=== PATIENT | female | born 1980 | race African-American/Black ===

== ENCOUNTER 2017-09-04 15:16 | Emergency (ER) | payer MEDICARE, MEDICAID ==
--- NOTE | 2017-09-04 15:54 | RAD ---
RADIOGRAPH OF CHEST 2 VIEW SERIES: Date: 09/04/17 COMPARISON: 09/02/17. CLINICAL HISTORY: Chest pain. FINDINGS: There is mild enlargement of the cardiac silhouette and prominence of pulmonary vasculature with mil d bilateral pleural fluid. No lobar consolidation or pneumothorax. Prior sternotomy again seen. IMPRESSION: Evidence of edema, likely cardiogenic, with mild bilateral pleural fluid. Recommend follow-up to res olution. POS: GUS
[2017-09-04] MEDS ORDERED: Metoprolol Tartrate 50 MG TAB ONE (17:08)
[2017-09-04] MEDS ORDERED: Metoprolol Tartrate 25 MG TAB ONE (17:08)
[2017-09-04] MEDS ORDERED: HYDROcodone/Acetaminophen 5/325 mg Tablet ONE (17:28)
[2017-09-04] MEDS ORDERED: Furosemide 40 MG TAB ONE (17:28)
== END 2017-09-04 17:47 | disposition home or self-care (01) ==
LOC: ERS 15:16
DX: R07.89 Other chest pain (principal); R45.1 Restlessness and agitation; K21.9 Gastro-esophageal reflux disease without esophagitis; I10 Essential (primary) hypertension; E10.9 Type 1 diabetes mellitus without complications; Z79.899 Other long term (current) drug therapy
CPT/HCPCS: 36416; 71020; 93005

== ENCOUNTER 2017-12-31 13:01 | Inpatient (IN) | payer MEDICARE, MEDICAID ==
[2017-12-31] MEDS ORDERED: Dextrose 50% Abboject 50 ML SYRINGE ONE (13:43)
[2017-12-31] MEDS ORDERED: cloNIDine 0.1 MG TAB ONE (14:37)
[2017-12-31 14:42] LABS: CKMB 4.9 ng/mL (0-6.6); Troponin I 0.178 ng/mL (< 0.028)
[2017-12-31] MEDS ORDERED: Ondansetron ODT 4 MG TAB SL PRN (16:17)
[2017-12-31] MEDS ORDERED: Acetaminophen 325 MG TAB PO PRN (16:17)
[2017-12-31] MEDS ORDERED: Ondansetron HCl/PF 4 MG/2 ML Vial IVP PRN ×2 (16:17→18:02)
[2017-12-31] MEDS ORDERED: hydrALAZINE 20 MG/ML VIAL SLOW IVP PRN (17:10)
[2017-12-31 17:43] LABS: Troponin I 0.162 ng/mL (< 0.028)
[2017-12-31] MEDS ORDERED: PROVENTIL INHALER 6.7 G (200 INHALATIONS) INH PRN (18:02)
[2017-12-31] MEDS ORDERED: Dextrose 5% in Water 1,000 ML IV PRN (18:02)
[2017-12-31] MEDS ORDERED: Dextrose 50% Abboject 50 ML SYRINGE SLOW IVP PRN (18:02)
[2017-12-31] MEDS ORDERED: Ondansetron ODT 4 MG TAB PO PRN (18:02)
--- NOTE | 2017-12-31 20:09 | CON ---
DATE OF CONSULTATION: 12/31/2017 HISTORY: Ms. Gimenez is a 37-year-old black female with known history of ESRD from diabetic nephropat hy, admitted for hypoglycemia. She was also found to have an elevated troponin, high. We are being consulted for her maintenance hemodialysis. She was due for dialysis today, but I felt that we can h old dialysis until tomorrow. REVIEW OF SYSTEMS: Not obtainable, since the patient is sleepy, but she is arousable. MEDICATIONS: Currently on Zofran 4 mg IV q.6, hydralazine 10 mg IV q.4 p.r.n. Home medications include Keppra 250 mg p.o. b.i.d., clonidine 0.1 mg p.o. b.i.d., metoprolol tartrate 12.5 mg p.o. b.i.d., Levemir FlexPen 20 units subcutaneous q.p.m. and 35 units q.a.m., furosemide 40 mg daily, aspirin 81 mg tablets, atorvastatin 40 mg at bedtime. PAST MEDICAL HISTORY: 1. Seizure disorder. 2. Status post sepsis. 3. Status post acute respiratory failure. 4. Type 2 diabetes mellitus. 5. ESRD from diabetic nephropathy. 6. Hyperlipidemia. 7. Labile hypertension. 8. COPD. PAST SURGICAL HISTORY: 1. Patient is status post cardiac catheterization. 2. Status post CABG. 3. Status post intubation and on ventilator support. 4. She is also status post bilateral tubal ligation. 4. Status post D&C. 5. Status post thoracentesis. SOCIAL HISTORY: Patient lives in [place], living partner, 3 children. Denies any smoking or alcoho l intake. No IV drug abuse. Status post blood transfusion, medically disabled. Education: GED. ALLERGIES: None. TRAUMA: None. IMMUNIZATIONS: Up to date. HOSPITALIZATIONS: Please see past medical history. FAMILY HISTORY: Positive family history of ESRD. PHYSICAL EXAMINATION: VITAL SIGNS: Blood pressure is 210/123, heart rate 78, respiratory rate 18, temperature 99. GENERAL: Awake, alert, comfortable, not in distress. SKIN: Adequate turgor. HEENT: Pinkish conjunctivae, anicteric sclerae. NECK: No neck mass, no carotid bruits, no JVD. CHEST: No deformities. Lungs, clear breath sounds. HEART: Normal sinus rhythm. No murmur, no gallops, or rubs. ABDOMEN: Globular, soft, nontender, no masses. EXTREMITIES: No edema, no deformities. NEUROLOGIC: Patient is sleepy, but arousable, following commands. LABORATORY DATA: On 12/31/2017, sodium 135, potassium 3.4, chloride 99, carbon dioxide 28, BUN is 37 , creatinine of 4.16, glucose 222. White count is 4.3, hemoglobin 10.2. LFTs normal. Troponin I 0.172. Chest x-ray of 12/31/2017, no evidence of overt CHF. ASSESSMENT AND PLAN: 1. End-stage renal disease, stable. We will continue current 3 times a week hemodialysis. She miss ed her dialysis today and will be scheduling it tomorrow for dialysis. 2. Labile hypertension. We will resume her BP medications. I will be starting this patient on clon idine at 0.1 mg tab b.i.d. We will start nifedipine 90 mg XL tab and losartan 50 mg q.a.m. Overall, I agree with current management. 3. Borderline elevated troponin I - we will rule out for myocardial infarction. 4. Hypoglycemia, currently on D10 water.
[2017-12-31] MEDS: levETIRAcetam 500 MG TAB PO SCH (20:16)
[2017-12-31] MEDS: Famotidine 20 MG TAB PO SCH (20:17)
[2017-12-31] MEDS: Metoprolol Tartrate 25 MG TAB PO SCH (20:17)
[2017-12-31] MEDS: Dorzolamide HCl 2% Ophth Soln 10 ml Bottle EA EYE SCH (20:18)
[2017-12-31] MEDS: cloNIDine 0.1 MG TAB PO SCH (20:18)
[2017-12-31 20:36] LABS: Troponin I 0.103 ng/mL (< 0.028)
[2017-12-31] MEDS ORDERED: cloNIDine 0.1 MG TAB PO SCH (21:00)
--- NOTE | 2017-12-31 21:41 | HP ---
DATE OF ADMISSION: 12/31/2017 PRIMARY CARE PHYSICIAN: Dr[facility] Liss[facility] CHIEF COMPLAINT: Altered mental status. HISTORY OF PRESENT ILLNESS: This is a 37-year-old -Malawian female with significant history o f end-stage renal disease on current hemodialysis and severe coronary artery disease, status post cor onary artery bypass grafting x4 vessels in 06/2017, presenting to the emergency department in [facility] for altered mentation and hypoglycemia. The patient apparently was on her way to dialysis, he r regular dialysis appointment when she apparently had loss of consciousness. Initial glucose was as sessed at 26 receiving 2 amps of D50 with glucose increasing to 150. Patient apparently took Levemir approximately 3:00 a.m., however, did not eat anything after the subcutaneous injection. Patient st ates she has her daughter drop and administer her insulin due to essential blindness. The history is obtained after review of electronic medical records and discussions with the ER staff, as patient is an unreliable historian. In the emergency room, patient underwent general evaluation with the admin istration of D50 IV push. Patient also received Catapres 0.2 mg x1 dose and referred to the observat ion unit for evaluation. PAST MEDICAL HISTORY: 1. Three-vessel coronary artery disease, status post coronary artery bypass grafting x4 vessels. 2. History of congestive heart failure with preserved ejection fraction of 55%. 3. Normocytic anemia secondary to chronic kidney disease. 4. Hypertension. 5. Diabetes mellitus, type 2 insulin-requiring with end-stage renal disease. 6. End-stage renal disease with hemodialysis. 7. 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 8. History of pneumonia. 9. Gastroesophageal reflux disease. PAST SURGICAL HISTORY: 1. Status post coronary artery bypass grafting x4 vessels. 2. Status post thoracentesis. 3. Status post AV fistula placement. CURRENT MEDICATIONS: 1. ProAir HFA 2 puffs inhaled q.4 hours p.r.n. 2. Enteric-coated aspirin 81 mg 1 tablet p.o. daily. 3. Lipitor 40 mg p.o. daily. 4. Clonidine 0.1 mg p.o. b.i.d. 5. Dorzolamide 2 drops in each eye b.i.d. 6. Ferrous sulfate 325 mg p.o. daily. 7. Levemir 35 units subcutaneously daily and 20 units subcutaneously at bedtime. 8. Keppra 250 mg p.o. b.i.d. 9. Lopressor 12.5 mg p.o. b.i.d. ALLERGIES: No known drug allergies. FAMILY HISTORY: Mother, status post colon resection for unknown reasons. Father at age of 68 f rom complications of diabetes mellitus. SOCIAL HISTORY: Patient resides in [place], [place]. . No current alcohol, tobacco, or illic it drug use. REVIEW OF SYSTEMS: The following complete review of systems was otherwise negative, except as stated per HPI: Constitutional: Weight loss or gain, ability to conduct usual activities. Skin: Rash, i tching. Eyes: Double vision, pain. ENT/Mouth: Nose bleeding, neck stiffness, pain, tenderness. C ardiovascular: Palpitations, dyspnea on exertion, orthopnea. Respiratory: Shortness of breath, whe ezing, cough, hemoptysis, fever, or night sweats. Gastrointestinal: Poor appetite, abdominal pain, heartburn, nausea, vomiting, constipation, or diarrhea. Genitourinary: Urgency, frequency, dysuria, nocturia. Musculoskeletal: Pain, swelling. Neurologic/Psychiatric: Anxiety, depression. Allergy /Immunologic: Skin rash, bleeding tendency. PHYSICAL EXAMINATION: VITAL SIGNS: On admission, blood pressure 210/123, pulse 78, respiratory rate 18, temperature 97.2 d egrees Fahrenheit, O2 saturation 99% on room air. GENERAL APPEARANCE: This is a 37-year-old -Malawian female, minimally responsive to direct st imulation and voice. Mumbles a few words to name. HEENT: Bilateral advanced cataracts. Nares patent. OP is clear. Oral mucosa dry appearing. NECK: Supple, no cervical adenopathy, no thyromegaly, no carotid bruits, no JVD appreciated. Cervic al spine with full active and passive range of motion. No meningeal signs appreciated. CHEST: Lungs with coarse crackles bilaterally in the bases. CARDIOVASCULAR: S1, S2 with 1-2/6 systolic ejection murmur in the right upper sternal border. ABDOMEN: Rounded, soft, nontender, nondistended. Bowel sounds are positive in all four quadrants. There is no hepatosplenomegaly, no abdominal bruits, no rebound or guarding appreciated. EXTREMITIES: Warm and dry with fair turgor. No clubbing, cyanosis, or asymmetric edema appreciated. Pulses palpable distally at the dorsalis pedis, posterior tibial, and popliteal arteries bilaterall y. Capillary refill less than 2 seconds. NEUROLOGIC: Cranial nerves II-XII are grossly intact. Right eye blindness noted. PERTINENT LABORATORY AND X-RAY FINDINGS: Troponin I ranged between 0.162-0.178. Sodium 135, potassi um 3.4, chloride 99, CO2 of 28, BUN 37, creatinine 4.16, estimated GFR 45, glucose 222, hemoglobin A1 c 9.6 on 07/15/2017. Calcium 8.2, AST 57, ALT of 261 with alkaline phosphatase 170. BNP 589 on 09/17. CBC showed a white blood cell count of 4.3, hemoglobin 10, hematocrit 32, platelet count 276 with normal differential. EKG dated 12/31/2017 by my interpretation shows sinus mechanism with hear t rates in the 70s. Low voltage tracing globally. Attenuated R waves noted in precordial leads. No rmal axis. T-wave inversion in leads V5 and V6. Acute encephalopathy, likely secondarily to acute h ypoglycemia. We will continue supportive measures. Continue serial Accu-Cheks monitoring. Hold ins ulin regimen. Portable chest x-ray dated 12/31/2017 showed no acute cardiopulmonary process. ASSESSMENT AND PLAN: 1. Acute encephalopathy. Patient will be observed on the telemetry unit. Suspect secondarily to hy poglycemia. We will continue supportive measures. Serial Accu-Cheks. Hold insulin. Overall improv ed with glucose supplementation. 2. End-stage renal disease with hemodialysis. We will resume hemodialysis after consulting Nephrolo gy Service. 3. Diabetes mellitus type 2, advanced. We will hold long-acting Levemir. Insulin sliding scale for reflexive coverage. Check A1c level in the a.m. ADA diet. 4. Coronary artery disease, status post coronary artery bypass grafting. Continue home medication r egimen including aspirin 81 mg p.o. daily. Continue Lipitor 40 mg p.o. daily. 5. Elevated troponin I. Suspect secondarily to end-stage renal disease with hemodialysis. No curre nt evidence to suggest acute coronary syndrome. 6. Prophylaxis. Sequential compression devices while in bed. Pepcid 20 mg p.o. b.i.d. 7. Code status is FULL. Surrogate medical decision maker is patient's spouse.
[2017-12-31] MEDS: Acetaminophen 500 MG TAB PO PRN (23:43)
[2017-12-31] MEDS: cloNIDine 0.1 MG TAB PO PRN (23:43)
[2018-01-01] MEDS ORDERED: Furosemide 40 MG/4 ML VIAL SLOW IVP SCH (03:30)
[2018-01-01] MEDS ORDERED: Losartan 25 MG TAB PO SCH (03:30)
[2018-01-01] MEDS ORDERED: NIFEdipine XL 90 MG TAB PO SCH (03:30)
[2018-01-01 05:34] LABS: Hemoglobin 9.4 g/dL (12.0-16.0); Mean Corpuscular Hemoglobin 29.4 pg (27.0-31.0); Mean Platelet Volume 8.2 fL (7.4-10.4); Platelet Count 317 thou/uL (130-400); RBC Distribution Width 16.9 % (11.5-14.5); Red Blood Cell (RBC) Count 3.18 mill/uL (4.20-5.40); White Blood Cell (WBC) Count 6.6 thou/uL (4.8-10.8)
[2018-01-01 05:35] LABS: Band 9 % (5-11); Eosinophils 1 % (0-10); Lymphocytes 20 % (21-51); MDiff Complete? YES; Monocytes 8 % (0-10); Neutrophil 62 % (42-75)
[2018-01-01 06:14] LABS: Anion Gap 16 mmol/L (10-20); BUN (Urea Nitrogen) 46 mg/dL (7.0-18.7); Calc. Creatinine Clearance 16 mL/min (70-130); Calcium 8.3 mg/dL (7.8-10.44); Carbon Dioxide 25 mmol/L (22-29); Chloride 100 mmol/L (98-107); Estimated GFR-MDRD 13; Glucose 101 mg/dL (70-105); Potassium 3.9 mmol/L (3.5-5.1); Sodium 137 mmol/L (136-145)
[2018-01-01] MEDS: Famotidine 20 MG TAB PO SCH ×2 (07:48→21:38)
[2018-01-01] MEDS: Aspirin 81 mg Enteric Coated Tablet PO SCH (07:49)
[2018-01-01] MEDS: levETIRAcetam 500 MG TAB PO SCH ×2 (07:49→21:37)
[2018-01-01] MEDS: cloNIDine 0.1 MG TAB PO SCH (07:49)
[2018-01-01] MEDS: Metoprolol Tartrate 25 MG TAB PO SCH ×2 (07:50→20:41)
[2018-01-01] MEDS: Ferrous Sulfate 325 MG TAB PO SCH (07:50)
[2018-01-01] MEDS: Dorzolamide HCl 2% Ophth Soln 10 ml Bottle EA EYE SCH ×2 (07:51→21:38)
[2018-01-01] MEDS ORDERED: Heparin 1,000 UNITS/ML VIAL ONE (11:11)
--- NOTE | 2018-01-01 11:56 | DIS ---
DATE OF ADMISSION: 12/31/2017 DATE OF DISCHARGE: 01/01/2018 DISCHARGE DIAGNOSES: 1. Acute metabolic encephalopathy secondary to hypoglycemia, resolved. 2. End-stage renal disease with hemodialysis. 3. Diabetes mellitus type 2, insulin requiring. 4. Coronary artery disease status post coronary artery bypass grafting, chronic and stable. 5. Elevated troponin I secondary to end-stage renal disease. 6. Hypertension, labile. 7. Chronic normocytic anemia secondary to chronic kidney disease. CONSULTATION: Dr. Ray with Nephrology Service. PERTINENT LABORATORY DATA AND X-RAY FINDINGS: Creatinine ranged between 4.16-4.76. Troponin I range d between 0.103-0.178. Glucose ranged between 58-162. CBC showed hemoglobin of 9.4. Portable chest x-ray dated 12/31/2017 showed no acute cardiopulmonary process. HOSPITAL COURSE: Patient was observed on the telemetry unit after initially presenting with altered mentation in the context of hypoglycemic episode. The patient was given 2 amps of D50 and placed on a D10 infusion with overall correction of glucose trend. Patient on chronic Levemir with current rec ommendations to titrate Levemir dosing with a titer surveillance of glucose trend. The patient was a lso evaluated for labile hypertension with the addition of Cozaar and nifedipine to [facility]. The patient was noted with hypotension after initiation of these two agents with recommendati ons to discontinue nifedipine and continue losartan for ongoing outpatient use. The patient was not volume overloaded during the hospital course and did not need acute or urgent hemodialysis. Current recommendations are for resuming regular hemodialysis sessions on discharge beginning [id number]. Ernst mckoy, patient remained clinically stable during the hospital course, tolerating regular oral intake w ith telemetry monitoring showing sinus mechanism without evidence of acute arrhythmia or dysrhythmia. The patient is stable and ready for discharge on 01/01/2018. DISCHARGE MEDICATIONS: 1. ProAir HFA 2 puffs inhaled q.4 hours p.r.n. 2. Enteric coated aspirin 81 mg 1 tab p.o. daily. 3. Lipitor 40 mg 1 tab p.o. daily. 4. Clonidine 0.1 mg p.o. b.i.d. 5. Dorzolamide 2% ophthalmic solution 2 drops each eye b.i.d. 6. Ferrous sulfate 325 mg p.o. daily. 7. Levemir 25 units subcutaneously daily and 10 units subcutaneously at bedtime. 8. Keppra 250 mg p.o. b.i.d. 9. Cozaar 25 mg p.o. daily. 10. Metoprolol 12.5 mg p.o. b.i.d. FOLLOWUP: The patient may follow up with her primary care provider, Dr. Lissett Tang within 7 days of discharge. The patient will follow up with Dr. Ray with Nephrology Service with hemodialysis Thu, Thursday, and Thursday. CONDITION ON DISCHARGE: Fair. ACTIVITY: Ad di. DIET: ADA and renal. CODE STATUS: FULL. DISPOSITION: Home, 01/01/2018.
[2018-01-01] MEDS: Acetaminophen 500 MG TAB PO PRN (13:14)
[2018-01-01] MEDS ORDERED: Dextrose 50% Abboject 50 ML SYRINGE ONE (17:00)
[2018-01-01] MEDS ORDERED: Calcium Chloride 1 GM/10 ML Abboject SYRINGE ONE (17:00)
[2018-01-01] MEDS ORDERED: EPINEPHrine 1 MG/10 ML Abboject SYRINGE ONE (17:00)
--- NOTE | 2018-01-01 17:15 | PDOC.PN ---
- Subjective Encounter Start Date: 01/01/18 Encounter Start Time: 17:00 Subjective: avery miller called with pt hypotensive and lethargic. Received two new -: BP meds this am including Nifedipine and Losartan. - Objective Resuscitation Status: Resuscitation Status FULL:Full Resuscitation MAR Reviewed: Yes Vital Signs & Weight: Vital Signs (12 hours) Temp Pulse Resp BP BP Pulse Ox 01/01/18 16:12 97.6 F 69 16 87/52 L 92 L 01/01/18 14:38 108/50 L 01/01/18 12:37 98.2 F 73 18 99/62 96 01/01/18 11:02 98.2 F 75 16 94/55 L 98 01/01/18 08:00 98.9 F 88 16 01/01/18 07:49 185/95 H 01/01/18 07:17 98.9 F 88 16 185/95 H 92 L 01/01/18 05:45 99.5 F 88 18 172/94 H 93 L Weight Weight 137 lb 8 oz I&O: 12/31/17 01/01/18 01/02/18 06:59 06:59 06:59 Intake Total 324 Output Total 300 Balance 24 Result Diagrams: 01/01/18 04:15 01/01/18 04:15 Additional Labs: Accuchecks 01/01/18 01/01/18 01/01/18 16:36 14:26 10:49 POC Glucose 241 H 251 H 156 H 01/01/18 12/31/17 12/31/17 03:02 20:11 17:55 POC Glucose 111 H 117 H 94 EKG Reviewed by me: Yes (Tele - SR ) Phys Exam - Physical Examination lethargic, minimally arousable eyelid edema noted HEENT: PERRLA, oral pharynx no lesions Neck: no JVD, supple Respiratory: no wheezing, clear to auscultation bilateral Cardiovascular: RRR Gastrointestinal: soft, non-tender, no distention, positive bowel sounds Musculoskeletal: no edema, pulses present answers questions briefly Neurological: moves all 4 limbs Skin: normal turgor Dx/Plan (1) Hypotension, iatrogenic Code(s): I95.89 - OTHER HYPOTENSION Status: Acute Comment: Secondary to Nifedipine and Losartan in combination, IVF's x 2L, trendelenburg started (2) Encephalopathy acute Code(s): G93.40 - ENCEPHALOPATHY, UNSPECIFIED Status: Acute Comment: Multifactorial due to hypotension and hypoxia (3) ESRD (end stage renal disease) on dialysis Code(s): N18.6 - END STAGE RENAL DISEASE; Z99.2 - DEPENDENCE ON RENAL DIALYSIS Status: Chronic Comment: HD held per Renal service (4) Acute respiratory failure with hypoxia Code(s): J96.01 - ACUTE RESPIRATORY FAILURE WITH HYPOXIA Status: Resolved Comment: Increased O2 via NC but pt more lethargic, BVM started with RT - Plan respiratory therapy Code Green/Code Blue initiated, ACLS protocol started, no chest -: compressions as pulse palpated, 1 amp CaCL given and 1 amp Epi -: HR increased to 120's and BP increased, pt more alert and yelling -: after Epi given, pt pulling off leads, mask and fighting staff. Pt transfer -: to [facility] for further monitoring and IVF's * Lab: CMP, CBC * PCXR today * Pt initially scheduled for d/c but held due to hypotension and Code Blue. ? Hemodialysis in am. * Levophed gtt started due to persistent hypotension * Consult Critical Care service * Total critical care time: 30min
[2018-01-01 17:36] LABS: Actual Bicarbonate (HCO3a) 20.3 mEq/L (22-26); Base Excess (BEa) -5.5 mEq/L (0 (+/-) 2.5); CO2 Tension 41.2 mmHg (35.0-45.0); Hematocrit-ABG 31.4 % (36.0-47.0); Hemoglobin (Hb) 8.9 g/dL (12.0-16.0); O2 Tension (PaO2) 60.4 mmHg (80.0-100.0); pH, Arterial 7.31 (7.35-7.45)
[2018-01-01 17:37] LABS: Calcium, Ionized 1.3 mmol/L (1.12-1.30); Puncture Site LB
[2018-01-01] MEDS ORDERED: Norepinephrine 8 MG/0.9% NS 250 ML ONE (17:54)
[2018-01-01] MEDS ORDERED: Norepinephrine 8 MG in Sodium Chloride 0.9% 250 ML 250 ML IVPB PRN (19:16)
[2018-01-01] MEDS: Epoetin (ESRD) 20,000 UNITS/ML SC SCH (22:16)
[2018-01-01] MEDS: HumaLOG 300 UNITS/3 ML VIAL SC PRN ×2 (22:17→22:19)
--- NOTE | 2018-01-01 23:25 | CON ---
DATE OF CONSULTATION: 01/01/2018 Arely Gimenez is a 37-year-old female. She is a dialysis patient. Apparently she was admitted with hypoglycemia. Blood pressure medicines apparently were adjusted and she developed hypotension. A code was called. She received epinephrine, was moved to the B unit and then moved to the ICU. PAST MEDICAL HISTORY: Remarkable for, 1. Coronary artery bypass grafting. 2. History of cardiomyopathy. 3. History of chronic kidney disease. 4. History of hypertension. 5. History of diabetes, reportedly type 2. 6. History of glaucoma with legal blindness. 7. History of pneumonia. 8. History of reflux disease. 9. History of thoracentesis. 10. History of multiple vascular access procedures in the past. FAMILY HISTORY: Negative for lung disease at an early age. REVIEW OF SYSTEMS: Not accurately obtainable. She was very combative when I initially saw her. She said that she will leave against medical advice. It has been explained to her that she cannot as she has been confused and disoriented. She is a nonsmoker, not daily drinker. There is no history of drug allergies. PHYSICAL EXAMINATION: VITAL SIGNS: Blood pressures are in the 80s-100 range when I evaluated her after she was transferred to the ICU. She is afebrile, heart rate in the 60s, respiratory rate is 16. HEENT: Sclerae is anicteric. Extraocular movements are full. NECK: Supple. LUNGS: Clear. HEART: Regular rhythm. ABDOMEN: Soft. EXTREMITIES: Without asymmetry. LABORATORY DATA: White count 6.6, hemoglobin 9.4, platelets 317. Sodium 137, potassium 3.9, chloride 100, bicarbonate 25, BUN 46, creatinine of 4.76, pH 7.31 , CO2 of 41, pO2 of 60. IMPRESSION: Hypotension question medication induced. She does not have any clinical evidence of pulmonary edema, so she should respond to some volume I would think maybe even some calcium since calcium brandie that was given earlier. Blood sugar will be monitored. She will remain in the Critical Care Unit. Critical care time 30 min. ROBERT
--- NOTE | 2018-01-02 00:05 | PRG ---
DATE OF SERVICE: 01/01/2018 SUBJECTIVE: Ms. Gimenez was seen earlier this afternoon at 4 p.m. At that time, she was asymptomatic and mentating well. Later on a code angela was called. She became less responsive and a code was do ne. However, she never lost her pulse. She was transferred to ICU for further management and observ ation. She is very agitated. She was started on a Levophed drip due to the blood pressure of 87/52. She is currently eating chips, which she was advised not to eat. No other complaints. She is want ing dialysis. However, I reviewed her clinical status and I do not think she is in overt volume over load necessitating emergent dialysis. Please note her dialysis was held today due to the low blood p ressure. OBJECTIVE: VITAL SIGNS: Blood pressure is currently 87/52, heart rate 69, respiratory rate 16, temperature 97.6 , pulse oximetry is 95% on 4 liters. GENERAL: Awake, alert, comfortable, not in distress. SKIN: Adequate turgor. HEENT: Pinkish conjunctivae. Anicteric sclerae. NECK: No neck mass or carotid bruits, no JVD. CHEST: No deformities. LUNGS: Clear breath sounds. No wheezing, no crackles. HEART: Normal sinus rhythm. No murmur, no gallops, no rubs. ABDOMEN: Globular, soft, nontender. EXTREMITIES: No edema or deformities. MEDICATIONS: Of 01/01/2018 was reviewed. LABORATORY DATA: Of 01/01/2018 at 4:15 p.m.: Sodium 137, potassium 3.9, chloride 100, carbon dioxid e 25, BUN 46, creatinine of 4.76, calcium 8.3. White count 6.6, hemoglobin 9.4. ASSESSMENT AND PLAN: 1. End-stage renal disease - stable. I do not see any indication for emergent hemodialysis since th e patient is oxygenating well. The concern I have is that her blood pressure has been running low an d this may affect how I dialyze this patient if dialysis gets started tonight. The plan is to dialyz e her first thing in the morning. 2. Status post code green: The patient had an apneic episode, but she is fully recovered. She is no t intubated, placed on ventilator support. She is actually very agitated. 3. Labile hypertension. Initially was admitted due to very high blood pressure, but later on this m orning she dropped her blood pressure. She has been on the hypotensive side the whole day. Continue to hold current blood pressure meds.
[2018-01-02] MEDS ORDERED: Furosemide 40 MG/4 ML VIAL SLOW IVP SCH (01:30)
[2018-01-02 06:10] LABS: ALT (SGPT) 171 U/L (8-55); AST (SGOT) 36 U/L (5-34); Albumin 2.7 g/dL (3.5-5.0); Alkaline Phosphatase 171 U/L (40-150); Anion Gap 14 mmol/L (10-20); BUN (Urea Nitrogen) 58 mg/dL (7.0-18.7); Bilirubin, Total 0.4 mg/dL (0.2-1.2); Calc. Creatinine Clearance 14 mL/min (70-130); Calcium 8.3 mg/dL (7.8-10.44); Carbon Dioxide 25 mmol/L (22-29); Chloride 99 mmol/L (98-107); Estimated GFR-MDRD 11; Globulin 3.2 g/dL (2.4-3.5); Glucose 449 mg/dL (70-105); Potassium 4.4 mmol/L (3.5-5.1); Protein, Total 5.9 g/dL (6.0-8.3); Sodium 134 mmol/L (136-145)
[2018-01-02] MEDS: HumaLOG 300 UNITS/3 ML VIAL SC PRN ×2 (06:31→17:38)
[2018-01-02 06:50] LABS: Band 11 % (5-11); Hemoglobin 8.4 g/dL (12.0-16.0); Lymphocytes 11 % (21-51); MDiff Complete? YES; Mean Corpuscular HGB CONC 32.3 g/dL (32.0-36.0); Mean Corpuscular Hemoglobin 29.7 pg (27.0-31.0); Mean Corpuscular Volume 91.9 fl (81.0-99.0); Mean Platelet Volume 8.7 fL (7.4-10.4); Monocytes 4 % (0-10); Neutrophil 74 % (42-75); Platelet Count 252 thou/uL (130-400); RBC Distribution Width 16.3 % (11.5-14.5); Red Blood Cell (RBC) Count 2.82 mill/uL (4.20-5.40); White Blood Cell (WBC) Count 7.6 thou/uL (4.8-10.8)
[2018-01-02] MEDS ORDERED: Losartan 25 MG TAB PO SCH (09:00)
[2018-01-02] MEDS ORDERED: NIFEdipine XL 90 MG TAB PO SCH (09:00)
--- NOTE | 2018-01-02 09:15 | RAD ---
CHEST 1 VIEW: HISTORY: Dyspnea. Hypotension. COMPARISON: 12/31/17. FINDINGS: Cardiac silhouette is magnified and upper limits of normal in size. Pulmonary vasculature is slightl y engorged with patchy bilateral perihilar and bibasilar infiltrates. Mediastinum is midline. Posto perative changes of the mediastinum are apparent. Right internal jugular dialysis-type catheter is i n place. No evidence of pneumothorax. monitor worker leads overlie the chest. IMPRESSION: Pulmonary vascular congestion. Other findings are stable. POS: KATRINA
[2018-01-02] MEDS: Dorzolamide HCl 2% Ophth Soln 10 ml Bottle EA EYE SCH ×2 (10:00→21:11)
--- NOTE | 2018-01-02 10:08 | PRG ---
DATE OF SERVICE: 01/02/2018 SUBJECTIVE: Ms. Gimenez is a 37-year-old black female with ESRD followed by the Renal Service [facility]. Events of the last 24 hours noted. Patient has been transferred to ICU for [facility] intensive monitoring due to her episodes of hypertension and decreased mentation. Chest x-ray wa s reviewed today, which showed increased lung markings. She has also been placed on pressor support for the low blood pressure. She is currently undergoing hemodialysis, at the bedside supervising her dialysis. OBJECTIVE: VITAL SIGNS: Blood pressure is 135/81, heart rate 93, respiratory rate 16, pulse ox 93%. GENERAL: Awake, sitting comfortable, not in overt distress. SKIN: Adequate turgor. HEENT: Slightly pale conjunctivae, anicteric sclerae. Slightly pale conjunctivae, anicteric sclerae . Puffy eyelids, no neck mass, no JVD. LUNGS: Decreased breath sounds. HEART: Normal sinus rhythm. No murmur, no gallops or rubs. ABDOMEN: Globular, soft, nontender. EXTREMITIES: Trace edema. MEDICATIONS: Of 01/02/2018, reviewed. LABORATORY DATA: Of 01/02/2018, white count 7.6, hemoglobin 8.4, hematocrit 25.9. Sodium 134, potas sium 4.4, chloride 99, carbon dioxide 25, BUN 58, creatinine 5.47, AST 36, ALT 171, alkaline phosphat ase 171, albumin is 2.7. Chest x-ray, increased lung markings. ASSESSMENT AND PLAN: 1. Labile hypertension - previously on pressor support. Continue current management. Holding of al l BP meds due to the recent hypotensive episode. 2. Congestive heart failure - increased lung markings this morning. This is based on today's chest x-ray. Please note the patient received several liters of fluid yesterday. Undergoing dialysis for fluid removal. 3. End-stage renal disease - patient undergoing hemodialysis today, attempting about 2 liters of flu id removal as tolerated. If needed, I will redialyze this patient again tomorrow for fluid removal. We are urgently removing fluid due to the episodes of hypotensive previously with this patient. 4. Anemia, on weekly Epogen. Overall, prognosis remains guarded.
--- NOTE | 2018-01-02 10:24 | PDOC.EVN ---
Event Note - Event Note Event Note: Chart reviewed and patient seen. Discussed with Case management. Pt was transfered to CCU yesterday for hypotension needing vasopressor drip and higher level of care after Code Green. Pt's status to be acute Inpatient from that time.
[2018-01-02] MEDS: ALPRAZolam 0.25 MG TAB PO PRN ×2 (10:43→17:53)
[2018-01-02] MEDS: Aspirin 81 mg Enteric Coated Tablet PO SCH (10:45)
[2018-01-02] MEDS: Ferrous Sulfate 325 MG TAB PO SCH (10:45)
[2018-01-02] MEDS: Famotidine 20 MG TAB PO SCH ×2 (10:45→21:06)
[2018-01-02] MEDS: Metoprolol Tartrate 25 MG TAB PO SCH ×2 (10:45→21:06)
[2018-01-02] MEDS: levETIRAcetam 500 MG TAB PO SCH ×2 (10:46→21:05)
[2018-01-02] MEDS ORDERED: Heparin 1,000 UNITS/ML VIAL ONE (11:11)
--- NOTE | 2018-01-02 12:41 | PDOC.PN ---
- Subjective Encounter Start Date: 01/02/18 Encounter Start Time: 10:20 Pt seen for followup re; hypotension. Moaning. Denies chest pain or shortness of breath. No fevers or chills. - Objective MAR Reviewed: Yes Vital Signs & Weight: Vital Signs (12 hours) Temp Pulse Resp Pulse Ox 01/02/18 08:00 97.6 F 93 22 H 95 01/02/18 07:00 98.8 F 01/02/18 04:00 97.6 F 92 L Weight Admit Weight 2.31 oz Most Recent Monitor Data Heart Rate from ECG 93 NIBP 135/81 NIBP BP-Mean 106 Respiration from ECG 16 SpO2 93 I&O: 01/01/18 01/02/18 01/03/18 06:59 06:59 06:59 Intake Total 766.2 120 Output Total 75 0 Balance 691.2 120 Result Diagrams: 01/02/18 05:30 01/02/18 05:30 Additional Labs: Accuchecks 01/02/18 01/02/18 01/01/18 10:54 06:31 20:53 POC Glucose 129 H 398 H 322 H EKG Reviewed by me: Yes (Tele: NSR) Phys Exam - Physical Examination Constitutional: NAD HEENT: moist MMs Neck: supple Respiratory: clear to auscultation bilateral Cardiovascular: RRR Neurological: moves all 4 limbs Psychiatric: normal affect Skin: no rash Dx/Plan (1) Hypotension Status: Acute (2) Encephalopathy acute Code(s): G93.40 - ENCEPHALOPATHY, UNSPECIFIED Status: Acute (3) ESRD (end stage renal disease) on dialysis Code(s): N18.6 - END STAGE RENAL DISEASE; Z99.2 - DEPENDENCE ON RENAL DIALYSIS Status: Chronic (4) DM type 1 (diabetes mellitus, type 1) Status: Chronic Qualifiers: Diabetes mellitus complication status: with ophthalmic complications Diabetes mellitus complication detail: with diabetic retinopathy Diabetic retinopathy severity: with unspecified retinopathy severity Diabetes mellitus macular edema: macular edema presence unspecified Laterality: bilateral Qualified Code(s): E10.319 - Type 1 diabetes mellitus with unspecified diabetic retinopathy without macular edema (5) Glaucoma Code(s): H40.9 - UNSPECIFIED GLAUCOMA Status: Chronic (6) Hypertension Code(s): I10 - ESSENTIAL (PRIMARY) HYPERTENSION Status: Chronic Qualifiers: Hypertension type: essential hypertension Qualified Code(s): I10 - Essential (primary) hypertension (7) CAD (coronary artery disease) Code(s): I25.10 - ATHSCL HEART DISEASE OF [place] CORONARY ARTERY W/O ANG PCTRS Status: Chronic - Plan * . Blood pressure improved today. Pt to have dialysis, monitor BP. Dialysis per nephrology service. Continue feosol, epoetin. Review of Systems - Review of Systems Respiratory: negative: Cough, Dry, Shortness of Breath, Hemoptysis, SOB with Excertion, Pleuritic Pain, Sputum, Wheezing Cardiovascular: negative: chest pain, palpitations, orthopnea, paroxysmal nocturnal dyspnea, edema, light headedness - Medications/Allergies Allergies/Adverse Reactions: Allergies Allergy/AdvReac Type Severity Reaction Status Date / Time No Known Drug Allergies Allergy Verified 07/03/17 21:53 Medications: Current Medications Acetaminophen (Tylenol) 1,000 mg PO Q6H PRN PRN Reason: Headache/Fever or Mild Pain Last Admin: 01/01/18 13:14 Dose: 1,000 mg Albuterol Sulfate (Proventil Hfa) 2 puff INH Q4HR PRN PRN Reason: SOB &/or Wheezing Alprazolam (Xanax) 0.25 mg PO BIDPRN PRN PRN Reason: Anxiety Last Admin: 01/02/18 10:43 Dose: 0.25 mg Aspirin (Ecotrin) 81 mg PO DAILY [facility] Last Admin: 01/02/18 10:45 Dose: 81 mg Clonidine (Catapres) 0.1 mg PO Q4H PRN PRN Reason: Systolic BP > 180 Last Admin: 12/31/17 23:43 Dose: 0.1 mg Dextrose/Water (Dextrose 50%) 25 gm SLOW IVP PRN PRN PRN Reason: Hypoglycemia Dorzolamide HCl (Trusopt 2% Ophth Soln) 2 drop EA EYE BID [facility] Last Admin: 01/01/18 21:38 Dose: 2 drop Epoetin Enrique (Procrit) 7,500 units SC Q7D [facility] Last Admin: 01/01/18 22:16 Dose: 7,500 units Famotidine (Pepcid) 20 mg PO BID [facility] Last Admin: 01/02/18 10:45 Dose: 20 mg Ferrous Sulfate (Feosol) 325 mg PO DAILY [facility] Last Admin: 01/02/18 10:45 Dose: 325 mg Glucagon (Glucagon) 1 mg IM PRN PRN PRN Reason: Hypoglycemia Heparin Sodium (Porcine) (Heparin Lock Flush 100 Units/Ml) 500 units IVF PRN PRN PRN Reason: Heparin Flush Last Admin: 01/02/18 06:32 Dose: 200 unit Dextrose/Water (D5w) 1,000 mls @ 0 mls/hr IV .Q0M PRN; As Directed PRN Reason: Hypoglycemia Norepinephrine Bitartrate 8 mg (/ Sodium Chloride) 258 mls @ 0 mls/hr IVPB INF PRN; Protocol; Titrate PRN Reason: TO KEEP SBP > 100 Insulin Human Lispro (Humalog) 0 units SC .MILD SLIDING SCALE PRN PRN Reason: Mild Correctional Scale Last Admin: 01/02/18 06:31 Dose: 6 unit Insulin Human Lispro (Humalog) 0 units SC .BEDTIME SLIDING SC PRN PRN Reason: Bedtime Correctional Scale Last Admin: 01/01/18 22:19 Dose: 4 unit Levetiracetam (Keppra) 250 mg PO BID [facility] Last Admin: 01/02/18 10:46 Dose: 250 mg Metoprolol Tartrate (Lopressor) 12.5 mg PO BID [facility] Last Admin: 01/02/18 10:45 Dose: 12.5 mg Ondansetron HCl (Zofran Odt) 4 mg PO Q6H PRN PRN Reason: Nausea/Vomiting Ondansetron HCl (Zofran) 4 mg IVP Q6H PRN PRN Reason: Nausea/Vomiting Sodium Chloride (Flush - Normal Saline) 10 ml IVF PRN PRN PRN Reason: Saline Flush
--- NOTE | 2018-01-02 18:10 | PRG ---
DATE OF SERVICE: 01/02/2018 Ms. Arely Gimenez is much more cooperative today. She is being dialyzed this morning. OBJECTIVE: VITAL SIGNS: She is afebrile, heart rate is in the 90s, blood pressure 152/86. LUNGS: Clear. HEART: Regular rhythm. ABDOMEN: Soft. LABORATORY DATA: White count 7.6, hemoglobin 8.4, platelets 252. Electrolytes are normal except for BUN and creatinine are elevated as expected in a dialysis patient. Blood sugars have been better th is afternoon and then this morning. IMPRESSION: 1. Hypoglycemia. 2. Hypotension, most likely secondary to medication. 3. Encephalopathy yesterday with her hypotension and hypoglycemia, improved. 4. End-stage renal disease. She can be transferred to medical floor. She had no cardiac rhythm dis turbances and would require telemetry monitoring.
[2018-01-02] MEDS ORDERED: Benzonatate 100 MG CAP PO PRN (22:49)
[2018-01-02] MEDS: cloNIDine 0.1 MG TAB PO PRN (22:56)
[2018-01-02] MEDS ORDERED: Metoprolol Tartrate 25 MG TAB PO SCH (23:00)
[2018-01-03] MEDS ORDERED: cloNIDine 0.1 MG TAB PO SCH (02:15)
[2018-01-03] MEDS: cloNIDine 0.1 MG TAB PO PRN (06:08)
[2018-01-03] MEDS: Acetaminophen 500 MG TAB PO PRN (06:32)
[2018-01-03] MEDS: ALPRAZolam 0.25 MG TAB PO PRN (06:32)
[2018-01-03] MEDS: Dorzolamide HCl 2% Ophth Soln 10 ml Bottle EA EYE SCH ×2 (09:16→21:00)
[2018-01-03] MEDS: Ferrous Sulfate 325 MG TAB PO SCH ×2 (09:18→13:32)
[2018-01-03] MEDS: levETIRAcetam 500 MG TAB PO SCH ×3 (09:18→21:00)
[2018-01-03] MEDS: Metoprolol Tartrate 25 MG TAB PO SCH ×3 (09:18→21:00)
[2018-01-03] MEDS: Aspirin 81 mg Enteric Coated Tablet PO SCH ×2 (09:19→13:34)
[2018-01-03] MEDS: Famotidine 20 MG TAB PO SCH ×3 (09:20→21:55)
[2018-01-03] MEDS ORDERED: Heparin 10,000 UNITS/ 10 ML VIAL ONE (10:00)
--- NOTE | 2018-01-03 10:09 | PRG ---
DATE OF SERVICE: 01/03/2018 SERVICE: Renal Medicine. SUBJECTIVE: The patient is currently at the dialysis unit. We are dialyzing this patient. I am at the bedside. She was noted to be hypoxemic earlier. For that reason, a 3-hour dialysis is being jose nned. My plan is to remove 2-3 liters as tolerated by the patient. Her mentation is also been fluct uating. She has been very agitated yesterday and for that reason, Xanax was given. No other complai nts today. PHYSICAL EXAMINATION: VITAL SIGNS: Blood pressure is 142/99, heart rate 72, respiratory rate 18, pulse ox is 92% on face m ask, temperature 97.9. GENERAL: Noted to be awake, alert, comfortable, not in distress. SKIN: Adequate turgor. HEENT: She has slightly pale conjunctivae, anicteric sclerae. NECK: No neck mass, no carotid bruits, no JVD. CHEST: No deformities. LUNGS: Decreased breath sounds. HEART: Normal sinus rhythm. No murmur, no gallops, no rubs. ABDOMEN: Globular, soft, nontender, no masses. EXTREMITIES: No edema, no deformities. MEDICATIONS: Of 01/03/2018 was reviewed. LABORATORY DATA: Of 01/03/2018, glucose was 109. On 01/02/2018, hemoglobin 8.4. BUN 58, creatinine 5.47, potassium 4.4. ASSESSMENT AND PLAN: 1. Anemia - patient has been initiated on Epogen 7500 units subcutaneously every week. 2. End-stage renal disease, continuing 3 times a week hemodialysis as tolerated. 3. Shortness of breath/hypoxemia - hemodialysis and we will attempt 2-3 liters of fluid removal as t olerated by the patient. If needed, we can again reschedule her for another dialysis session. Chest x-ray is currently pending. 4. Fluctuating mentation - patient is on p.r.n. Xanax. 5. Hypertension - previously noted to be on the hypotensive side. Currently, blood pressure is much improved. Please note, Xanax has been discontinued.
--- NOTE | 2018-01-03 10:45 | RAD ---
CHEST 1 VIEW: HISTORY: Dyspnea. Followup. COMPARISON: 01/02/18. FINDINGS: Cardiac silhouette is magnified and enlarged. Pulmonary vasculature is more engorged than on the eileen or exam with increasing density of bilateral perihilar and bibasilar infiltrates. Mediastinum is mid line with postoperative changes and dialysis catheter. No evidence of pneumothorax. IMPRESSION: Worsening pulmonary edema. POS: [facility]
[2018-01-03] MEDS ORDERED: ISOVUE-370 76%-LOCM 1 ML ONE (13:07)
--- NOTE | 2018-01-03 13:32 | PDOC.PN ---
- Subjective Encounter Start Date: 01/03/18 Encounter Start Time: 10:00 Pt seen for followup re: acute encephalopathy. Sleepy but arousable, not speaking much. SaO2 dropping while asleep. Unable to complete ROS. - Objective MAR Reviewed: Yes Vital Signs & Weight: Vital Signs (12 hours) Temp Pulse Resp BP Pulse Ox 01/03/18 08:00 97.9 F 72 18 142/99 H 79 L 01/03/18 05:00 97.8 F 78 20 191/116 H 93 L 01/03/18 03:28 92 L Weight Admit Weight 2.31 oz Most Recent Monitor Data Heart Rate from ECG 90 NIBP 165/97 NIBP BP-Mean 132 Respiration from ECG 18 SpO2 94 I&O: 01/02/18 01/03/18 01/04/18 06:59 06:59 06:59 Intake Total 766.2 180 Output Total 75 0 Balance 691.2 180 Result Diagrams: 01/02/18 05:30 01/02/18 05:30 Additional Labs: Accuchecks 01/03/18 01/03/18 01/02/18 08:37 04:39 20:19 POC Glucose 109 142 H 141 H 01/02/18 17:25 POC Glucose 168 H Phys Exam - Physical Examination Lethargy HEENT: moist MMs Neck: supple Bibasal crackles Cardiovascular: RRR Gastrointestinal: soft Neurological: moves all 4 limbs Deviation from normal: Lethargy Skin: no rash Dx/Plan (1) Encephalopathy acute Code(s): G93.40 - ENCEPHALOPATHY, UNSPECIFIED Status: Acute (2) ESRD (end stage renal disease) on dialysis Code(s): N18.6 - END STAGE RENAL DISEASE; Z99.2 - DEPENDENCE ON RENAL DIALYSIS Status: Chronic (3) DM type 1 (diabetes mellitus, type 1) Status: Chronic Qualifiers: Diabetes mellitus complication status: with ophthalmic complications Diabetes mellitus complication detail: with diabetic retinopathy Diabetic retinopathy severity: with unspecified retinopathy severity Diabetes mellitus macular edema: macular edema presence unspecified Laterality: bilateral Qualified Code(s): E10.319 - Type 1 diabetes mellitus with unspecified diabetic retinopathy without macular edema (4) Glaucoma Code(s): H40.9 - UNSPECIFIED GLAUCOMA Status: Chronic (5) Hypertension Code(s): I10 - ESSENTIAL (PRIMARY) HYPERTENSION Status: Chronic Qualifiers: Hypertension type: essential hypertension Qualified Code(s): I10 - Essential (primary) hypertension (6) CAD (coronary artery disease) Code(s): I25.10 - ATHSCL HEART DISEASE OF [place] CORONARY ARTERY W/O ANG PCTRS Status: Chronic (7) Hypotension Status: Resolved - Plan * . Pt's encephalopathy improving, waking up now. Likely secondary to benzos ( discontinued). Hypotension has resolved. Dialysis per nephrology service. Episodes of hypoxia while asleep possibly due to OSAS. Review of Systems - Medications/Allergies Allergies/Adverse Reactions: Allergies Allergy/AdvReac Type Severity Reaction Status Date / Time No Known Drug Allergies Allergy Verified 07/03/17 21:53 Medications: Current Medications Acetaminophen (Tylenol) 1,000 mg PO Q6H PRN PRN Reason: Headache/Fever or Mild Pain Last Admin: 01/03/18 06:32 Dose: 1,000 mg Albuterol Sulfate (Proventil Hfa) 2 puff INH Q4HR PRN PRN Reason: SOB &/or Wheezing Aspirin (Ecotrin) 81 mg PO DAILY [facility] Last Admin: 01/03/18 09:19 Dose: Not Given Benzonatate (Tessalon) 100 mg PO Q4H PRN PRN Reason: Cough Last Admin: 01/02/18 22:56 Dose: 100 mg Clonidine (Catapres) 0.1 mg PO Q4H PRN PRN Reason: Systolic BP > 180 Last Admin: 01/03/18 06:08 Dose: 0.1 mg Dextrose/Water (Dextrose 50%) 25 gm SLOW IVP PRN PRN PRN Reason: Hypoglycemia Dorzolamide HCl (Trusopt 2% [facility]) 2 drop EA EYE BID [facility] Last Admin: 01/03/18 09:16 Dose: 2 drop Epoetin Enrique (Procrit) 7,500 units SC Q7D [facility] Last Admin: 01/01/18 22:16 Dose: 7,500 units Famotidine (Pepcid) 20 mg PO BID [facility] Last Admin: 01/03/18 09:20 Dose: Not Given Ferrous Sulfate (Feosol) 325 mg PO DAILY [facility] Last Admin: 01/03/18 09:18 Dose: Not Given Glucagon (Glucagon) 1 mg IM PRN PRN PRN Reason: Hypoglycemia Heparin Sodium (Porcine) (Heparin Lock Flush 100 Units/Ml) 500 units IVF PRN PRN PRN Reason: Heparin Flush Last Admin: 01/02/18 06:32 Dose: 200 unit Dextrose/Water (D5w) 1,000 mls @ 0 mls/hr IV .Q0M PRN; As Directed PRN Reason: Hypoglycemia Norepinephrine Bitartrate 8 mg (/ Sodium Chloride) 258 mls @ 0 mls/hr IVPB INF PRN; Protocol; Titrate PRN Reason: TO KEEP SBP > 100 Insulin Human Lispro (Humalog) 0 units SC .MILD SLIDING SCALE PRN PRN Reason: Mild Correctional Scale Last Admin: 01/02/18 17:38 Dose: 2 unit Insulin Human Lispro (Humalog) 0 units SC .BEDTIME SLIDING SC PRN PRN Reason: Bedtime Correctional Scale Last Admin: 01/01/18 22:19 Dose: 4 unit Levetiracetam (Keppra) 250 mg PO BID [facility] Last Admin: 01/03/18 09:18 Dose: Not Given Metoprolol Tartrate (Lopressor) 12.5 mg PO BID [facility] Last Admin: 01/03/18 09:18 Dose: Not Given Ondansetron HCl (Zofran Odt) 4 mg PO Q6H PRN PRN Reason: Nausea/Vomiting Ondansetron HCl (Zofran) 4 mg IVP Q6H PRN PRN Reason: Nausea/Vomiting Sodium Chloride (Flush - Normal Saline) 10 ml IVF PRN PRN PRN Reason: Saline Flush
--- NOTE | 2018-01-03 17:42 | PRG ---
DATE OF SERVICE: 01/03/2018 Ammy became more tachypneic today. She had an exam radiograph consistent with pulmonary edema. Charity tang is to go for urgent dialysis today. If she did not improve with dialysis, she will be transferred to the Intermediate Care Unit or the ICU. If she had resolution of her symptoms with dialysis, plan was for her to go back to her regular room.
[2018-01-03] MEDS ORDERED: EPINEPHrine 1 MG/10 ML Abboject SYRINGE ONE (19:00)
[2018-01-03] MEDS ORDERED: Sodium Bicarb 50 MEQ/50 ML Abboject 8.4% SYRINGE ONE (19:00)
[2018-01-03] MEDS ORDERED: Calcium Chloride 1 GM/10 ML Abboject SYRINGE ONE (19:00)
[2018-01-03 20:17] LABS: pH, Arterial 7.24 (7.35-7.45)
[2018-01-03 20:18] LABS: Actual Bicarbonate (HCO3a) 25.5 mEq/L (22-26); Base Excess (BEa) -2.5 mEq/L (0 (+/-) 2.5); Calcium, Ionized 1.7 mmol/L (1.12-1.30); Hematocrit-ABG 32.8 % (36.0-47.0); Hemoglobin (Hb) 10.4 g/dL (12.0-16.0); O2 Tension (PaO2) 184.3 mmHg (80.0-100.0)
[2018-01-03 20:19] LABS: Analyzer IN Cardio ER; Puncture Site RRAD
[2018-01-03 20:35] LABS: Actual Bicarbonate (HCO3a) 23.2 mEq/L (22-26); Base Excess (BEa) 0.7 mEq/L (0 (+/-) 2.5); CO2 Tension 29.8 mmHg (35.0-45.0); Hematocrit-ABG 34.4 % (36.0-47.0); Hemoglobin (Hb) 10.4 g/dL (12.0-16.0); O2 Tension (PaO2) 86.3 mmHg (80.0-100.0)
[2018-01-03 20:36] LABS: Analyzer IN Cardio ER; Calcium, Ionized 1.3 mmol/L (1.12-1.30); Puncture Site RRAD
--- NOTE | 2018-01-03 21:20 | RAD ---
FRONTAL VIEW CHEST: Comparison: Earlier same day. Indication: Endotracheal tube placement evaluation. FINDINGS: Partially imaged endotracheal tube is present with tip terminating just above the claudine. Partially i giorgio right side vascular catheter remains in place. There has been placement of a catheter traversin g the mediastinum to the left upper abdomen which is partially obscured by overlying artifacts. This may relate to interval placement of enteric catheter. Correlate clinically. There is progressive multifocal opacity from a perihilar distribution of the right lung. Suprahilar o pacity on the left is again seen. No additional significant interval change. IMPRESSION: 1. Interval placement of supportive tubes as above. 2. Progressive multifocal opacification of the right lung and re-demonstration of the left suprahilar opacity. Continued follow up is warranted. POS: [facility]
[2018-01-03 21:43] LABS: Anion Gap 17 mmol/L (10-20); BUN (Urea Nitrogen) 21 mg/dL (7.0-18.7); Calc. Creatinine Clearance 30 mL/min (70-130); Calcium 9.2 mg/dL (7.8-10.44); Carbon Dioxide 26 mmol/L (22-29); Chloride 101 mmol/L (98-107); Estimated GFR-MDRD 26; Glucose 138 mg/dL (70-105); Potassium 3.1 mmol/L (3.5-5.1); Sodium 141 mmol/L (136-145)
[2018-01-03 21:47] LABS: Band 18 % (5-11); Eosinophils 1 % (0-10); Hemoglobin 9.5 g/dL (12.0-16.0); Lymphocytes 42 % (21-51); MDiff Complete? YES; Mean Corpuscular HGB CONC 30.6 g/dL (32.0-36.0); Mean Corpuscular Hemoglobin 29.3 pg (27.0-31.0); Mean Platelet Volume 9.8 fL (7.4-10.4); Monocytes 7 % (0-10); Neutrophil 32 % (42-75); Platelet Count 250 thou/uL (130-400); RBC Distribution Width 16.7 % (11.5-14.5); Red Blood Cell (RBC) Count 3.24 mill/uL (4.20-5.40); White Blood Cell (WBC) Count 13.8 thou/uL (4.8-10.8)
--- NOTE | 2018-01-03 22:21 | PRG ---
ADDENDUM This is an addendum - events of the last one, 1 to 2 hours, was noted. SUBJECTIVE: Patient was found unresponsive in her room. CPR was initiated. Pulses was regained. S he was noted to be apneic. She was subsequently intubated. The concern is that whether she may have developed pulmonary embolism. Pulmonary has evaluated this patient and planned CT angio of the pulm onary vessels, it will be done to rule out pulmonary embolism with her. Please note she did receive dialysis early this morning and we were able to remove around 3 to 4 liters of fluid with the dialysi s. She has been restless the whole day. She has refused to wear her face mask during the whole day. PHYSICAL EXAMINATION: VITAL SIGNS: Blood pressure is 140/70, heart rate 70. GENERAL: Patient is sedated and intubated on ventilator support. SKIN: Adequate turgor. HEENT: Slightly pale conjunctivae. LUNGS: Decreased breath sounds. HEART: Normal sinus rhythm. No murmur, no gallops, no rubs. ABDOMEN: Globular, soft, nontender, no masses. EXTREMITIES: No edema, no deformities. LABORATORY DATA: On 01/02/2018, hemoglobin at that time was 8.4. On 01/03/2018, sugar was 34. ASSESSMENT AND PLAN: Acute cardiorespiratory arrest - unclear etiology. Pulmonary embolism will be ruled out. If needed and if she becomes hypoxemic, we can always restart dialysis with this patient tonight. The only concern if she will tolerate the dialysis. She has had low blood pressure in the recent past. For the moment, agree with supportive management. I had a long discussion with the lady guerrero and regarding diagnosis and prognosis.
--- NOTE | 2018-01-03 22:23 | PRG ---
DATE OF SERVICE: 01/03/2018 SUBJECTIVE: The patient had code blue event tonight and has cross coverage. I was called to the hesham m already in progress was ACLS measures with Dr. Santos, ER doctor running the code. Patient per nurs ing staff was found at approximately 7:00 today in the evening, unresponsive. No pulse was found and the patient was not breathing. Patient had chest compressions started and ACLS measures started. S he was found to have ventricular fibrillation on rhythm. She was given several rounds of epinephrine as well as calcium and after about 10 minutes, had a resumption of spontaneous circulation. She was sedated and paralyzed and intubated during this time as well and transferred down to the ICU for fur ther care with the ventilator started. I did contact Dr. Dunne, the critical care doctor and he is m bretn aware and will be assisting with taking care of her case.
--- NOTE | 2018-01-03 22:34 | CT ---
CT OF CHEST WITH 3D VOLUME RENDERING: Indication: Cardiac arrest. FINDINGS: There is no obvious filling defect in the central pulmonary arteries to confirm acute pulmonary embol us. The aorta is non-aneurysmal within the chest. There is extensive consolidation of each lung with associated pleural fluid. No pneumothorax is seen. Cardiac chambers are mildly prominent. There is an endotracheal tube as well as enteric catheter partially visualized. There is evidence of prior lazo otomy. FINDINGS: 1. There is no large central pulmonary embolus. 2. Extensive bilateral pulmonary parenchymal consolidation with moderate pleural fluid, right greater than left. Correlate clinically. POS: [facility]
[2018-01-04] MEDS: cloNIDine 0.1 MG TAB PO PRN ×2 (04:17→23:21)
[2018-01-04 04:20] LABS: Anion Gap 19 mmol/L (10-20); BUN (Urea Nitrogen) 24 mg/dL (7.0-18.7); Calc. Creatinine Clearance 28 mL/min (70-130); Calcium 8.9 mg/dL (7.8-10.44); Carbon Dioxide 23 mmol/L (22-29); Chloride 100 mmol/L (98-107); Estimated GFR-MDRD 24; Glucose 165 mg/dL (70-105); Potassium 3.4 mmol/L (3.5-5.1); Sodium 139 mmol/L (136-145)
[2018-01-04 04:25] LABS: Band 19 % (5-11); Lymphocytes 8 % (21-51); MDiff Complete? YES; Mean Corpuscular HGB CONC 32.1 g/dL (32.0-36.0); Mean Corpuscular Hemoglobin 29.5 pg (27.0-31.0); Mean Corpuscular Volume 91.7 fl (81.0-99.0); Mean Platelet Volume 8.7 fL (7.4-10.4); Monocytes 4 % (0-10); Neutrophil 69 % (42-75); Platelet Count 290 thou/uL (130-400); RBC Distribution Width 16.4 % (11.5-14.5); Red Blood Cell (RBC) Count 3.39 mill/uL (4.20-5.40); White Blood Cell (WBC) Count 6.7 thou/uL (4.8-10.8)
[2018-01-04] MEDS: hydrALAZINE 20 MG/ML VIAL SLOW IVP PRN (04:39)
--- NOTE | 2018-01-04 06:06 | PRG ---
DATE OF SERVICE: 01/03/2018 SUBJECTIVE: Ms. Gimenez apparently, I am told, got back from dialysis and looked great. She actually took her oxygen off, was speaking in complete sentences, in no distress with sats in the mid to high 90s. The nurse left and came back in to check on her and she was a full arrest. She has been resuscitated. Current blood pressure is 149/76, pulse 96, respiratory rate is per mecha nical ventilation. Pupils are sluggish. Lungs are remarkable for equal breath sounds. Heart regula r rhythm. Abdomen is soft. She received paralytics, so neurological exam is not possible. Chest radiograph still shows a perihi lar haziness on the right. Blood gas shows pH 7.5, CO2 of 29, pO2 of 86, rate was turned down, This was on 100% and 10 of PEEP. Potassium on blood gas was 2.7, likely from her respiratory alkalosis. Heart rate has been turned down. I have ordered a CT angiogram. Ordered daily chest x-rays. I do not see where a CBC or Chem-7 was done after the code, so this has been ordered. I answered all her 's questions. He had not been notified sequence of events. I have explained everything to him. Critical care time 30 minutes.
[2018-01-04] MEDS: HumaLOG 300 UNITS/3 ML VIAL SC PRN ×3 (06:20→22:58)
[2018-01-04 07:04] LABS: Actual Bicarbonate (HCO3a) 21.3 mEq/L (22-26); Base Excess (BEa) -1.5 mEq/L (0 (+/-) 2.5); CO2 Tension 29.1 mmHg (35.0-45.0); Calcium, Ionized 1.2 mmol/L (1.12-1.30); O2 Tension (PaO2) 137.1 mmHg (80.0-100.0); Puncture Site LRA; pH, Arterial 7.48 (7.35-7.45)
[2018-01-04 07:05] LABS: ALV-art Gradient 183.025 (0-20)
--- NOTE | 2018-01-04 09:16 | PRG ---
DATE OF SERVICE: 01/04/2018 RENAL MEDICINE SUBJECTIVE: Ms. Gimenez is currently undergoing hemodialysis. I am attempting to remove fluid as melissa erated by the patient. Please note yesterday we removed 4-4.5 liters of fluid with dialysis. Last n ight, she went into cardiopulmonary arrest. CT angio of the chest was done which showed no pulmonary embolus, but there is an extensive bilateral pulmonary parenchymal consolidation with moderate pleur al fluid, right greater than left. PHYSICAL EXAMINATION: VITAL SIGNS: Blood pressure is currently 130/70, heart rate 80. GENERAL: Unresponsive, intubated on ventilator support. SKIN: Adequate turgor. HEENT: Pinkish conjunctivae, anicteric sclerae. NECK: No neck mass, no carotid bruits, JVD. CHEST: No deformities. LUNGS: Decreased breath sounds. HEART: Normal sinus rhythm. No murmurs, no gallops, no rubs. ABDOMEN: Globular, soft, nontender, no masses. EXTREMITIES: No edema, no deformities. MEDICATIONS: Medications of 01/04/2018 was reviewed. LABORATORY DATA AND IMAGING DATA: Laboratories of 01/04/2018; white count 6.7, hemoglobin 10. Sodiu m 139, potassium 3.4, chloride 100, carbon dioxide 23, BUN 24, and creatinine 2.73. Chest x-ray pending. ASSESSMENT AND PLAN: 1. Acute cardiorespiratory supportive care. Patient is still unresponsive. Continue to monitor. 2. End-stage renal disease. Patient currently undergoing hemodialysis. Attempting to max out fluid removal as tolerated by the patient. During the initial course of dialysis, blood pressure was note d to have dropped down. We are adjusting her dialysis regimen at the present time. 3. Seizure disorder. Patient currently on anti-seizure medications. 4. Anemia, continuing weekly Procrit with this patient.
--- NOTE | 2018-01-04 09:43 | RAD ---
RADIOGRAPH CHEST 1 VIEW: Date: 01/04/18. Time: 5:20 a.m. HISTORY: A 37-year-old female in respiratory failure. COMPARISON: 01/03/18, 7:42 p.m. FINDINGS: Endotracheal tube has been retracted slightly to appropriate position at midthoracic trachea. Right- sided double-lumen dialysis catheter descends from the right neck. One of the port tips overlies the expected location of the SVC while the other one is superior to it. No cardiomegaly. Sternotomy wi res. NG tube remains. Bilateral patchy alveolar infiltrates in a somewhat heterogeneous distributio n. Bilateral pleural effusions, right greater than left. No pneumothorax identified. No major inte rval change in the appearance of the lungs. IMPRESSION: 1. Slight retraction of endotracheal tube to appropriate position. 2. No other interval change. 3. Bilateral extensive airspace densities. 4. Bilateral pleural effusions. JN [] POS: [facility]
[2018-01-04] MEDS: levETIRAcetam 500 MG TAB PO SCH ×2 (10:28→20:33)
[2018-01-04] MEDS: Metoprolol Tartrate 25 MG TAB PO SCH ×2 (10:29→20:34)
[2018-01-04] MEDS: Ferrous Sulfate 325 MG TAB PO SCH (10:31)
[2018-01-04] MEDS: Aspirin 81 mg Enteric Coated Tablet PO SCH (10:31)
[2018-01-04] MEDS: Dorzolamide HCl 2% Ophth Soln 10 ml Bottle EA EYE SCH ×2 (10:31→20:34)
[2018-01-04] MEDS: Famotidine 20 MG TAB PO SCH (10:31)
[2018-01-04 13:24] LABS: CKMB 5.1 ng/mL (0-6.6)
[2018-01-04 13:25] LABS: Troponin I 0.435 ng/mL (< 0.028)
--- NOTE | 2018-01-04 14:27 | PDOC.PN ---
- Subjective Encounter Start Date: 01/04/18 Encounter Start Time: 10:00 Pt seen for followup re: cardiac arrest. Intubated, unable to obtain ROS. - Objective MAR Reviewed: Yes Vital Signs & Weight: Vital Signs (12 hours) Temp Pulse Resp BP Pulse Ox 01/04/18 14:21 91 139/88 01/04/18 14:00 14 01/04/18 12:00 98.7 F 17 98 01/04/18 10:51 97 109/80 01/04/18 08:00 98.4 F 96 22 H 98 01/04/18 07:00 98.4 F 01/04/18 06:27 93 123/77 01/04/18 04:39 90 197/125 H 01/04/18 04:00 97.7 F 14 01/04/18 02:51 14 01/04/18 02:45 93 Weight Admit Weight 139 lb Weight 127 lb 10.362 oz Most Recent Monitor Data Heart Rate from ECG 87 NIBP 139/88 NIBP BP-Mean 119 Respiration from ECG 14 SpO2 96 I&O: 01/03/18 01/04/18 01/05/18 06:59 06:59 06:59 Intake Total 180 120 140 Output Total 0 4585 35 Balance 180 -4465 105 Result Diagrams: 01/04/18 03:30 01/04/18 03:30 Additional Labs: Accuchecks 01/04/18 01/03/18 01/03/18 11:46 21:18 19:32 POC Glucose 108 134 H 103 01/03/18 16:33 POC Glucose 109 EKG Reviewed by me: Yes (Tele: NSR) Phys Exam - Physical Examination Intubated ETT Neck: no nodes Respiratory: clear to auscultation bilateral Cardiovascular: RRR Gastrointestinal: soft No spontaneous limb movements (pt is on sedation) Skin: no rash Dx/Plan (1) Cardiac arrest Code(s): I46.9 - CARDIAC ARREST, CAUSE UNSPECIFIED Status: Acute (2) Encephalopathy acute Code(s): G93.40 - ENCEPHALOPATHY, UNSPECIFIED Status: Acute (3) ESRD (end stage renal disease) on dialysis Code(s): N18.6 - END STAGE RENAL DISEASE; Z99.2 - DEPENDENCE ON RENAL DIALYSIS Status: Chronic (4) DM type 1 (diabetes mellitus, type 1) Status: Chronic Qualifiers: Diabetes mellitus complication status: with ophthalmic complications Diabetes mellitus complication detail: with diabetic retinopathy Diabetic retinopathy severity: with unspecified retinopathy severity Diabetes mellitus macular edema: macular edema presence unspecified Laterality: bilateral Qualified Code(s): E10.319 - Type 1 diabetes mellitus with unspecified diabetic retinopathy without macular edema (5) Glaucoma Code(s): H40.9 - UNSPECIFIED GLAUCOMA Status: Chronic (6) Hypertension Code(s): I10 - ESSENTIAL (PRIMARY) HYPERTENSION Status: Chronic Qualifiers: Hypertension type: essential hypertension Qualified Code(s): I10 - Essential (primary) hypertension (7) CAD (coronary artery disease) Code(s): I25.10 - ATHSCL HEART DISEASE OF [place] CORONARY ARTERY W/O ANG PCTRS Status: Chronic (8) Hypotension Status: Resolved - Plan * . Pt reportedly had V. fib during resuscitation. h/o CABG and known to cardiology service, consult cardiology for opinion and help with management. Dialysis per nephrology service. Review of Systems - Medications/Allergies Allergies/Adverse Reactions: Allergies Allergy/AdvReac Type Severity Reaction Status Date / Time No Known Drug Allergies Allergy Verified 07/03/17 21:53 Medications: Current Medications Acetaminophen (Tylenol) 1,000 mg PO Q6H PRN PRN Reason: Headache/Fever or Mild Pain Last Admin: 01/03/18 06:32 Dose: 1,000 mg Albuterol Sulfate (Proventil Hfa) 2 puff INH Q4HR PRN PRN Reason: SOB &/or Wheezing Aspirin (Ecotrin) 81 mg PO DAILY [facility] Last Admin: 01/04/18 10:31 Dose: 81 mg Benzonatate (Tessalon) 100 mg PO Q4H PRN PRN Reason: Cough Last Admin: 01/02/18 22:56 Dose: 100 mg Clonidine (Catapres) 0.1 mg PO Q4H PRN PRN Reason: Systolic BP > 180 Last Admin: 01/04/18 04:17 Dose: 0.1 mg Dextrose/Water (Dextrose 50%) 25 gm SLOW IVP PRN PRN PRN Reason: Hypoglycemia Dorzolamide HCl (Trusopt 2% Ophth Soln) 2 drop EA EYE BID [facility] Last Admin: 01/04/18 10:31 Dose: 2 drop Epoetin Enrique (Procrit) 7,500 units SC Q7D [facility] Last Admin: 01/01/18 22:16 Dose: 7,500 units Famotidine (Pepcid) 20 mg PO 0900 [facility] Last Admin: 01/04/18 10:31 Dose: 20 mg Ferrous Sulfate (Feosol) 325 mg PO DAILY [facility] Last Admin: 01/04/18 10:31 Dose: 325 mg Glucagon (Glucagon) 1 mg IM PRN PRN PRN Reason: Hypoglycemia Heparin Sodium (Porcine) (Heparin Lock Flush 100 Units/Ml) 500 units IVF PRN PRN PRN Reason: Heparin Flush Last Admin: 01/02/18 06:32 Dose: 200 unit Hydralazine HCl (Apresoline) 10 mg SLOW IVP Q4H PRN PRN Reason: FOR SBP > 170 Last Admin: 01/04/18 04:39 Dose: 10 mg Dextrose/Water (D5w) 1,000 mls @ 0 mls/hr IV .Q0M PRN; As Directed PRN Reason: Hypoglycemia Norepinephrine Bitartrate 8 mg (/ Sodium Chloride) 258 mls @ 0 mls/hr IVPB INF PRN; Protocol; Titrate PRN Reason: TO KEEP SBP > 100 Insulin Human Lispro (Humalog) 0 units SC .MILD SLIDING SCALE PRN PRN Reason: Mild Correctional Scale Last Admin: 01/04/18 06:20 Dose: 2 unit Insulin Human Lispro (Humalog) 0 units SC .BEDTIME SLIDING SC PRN PRN Reason: Bedtime Correctional Scale Last Admin: 01/01/18 22:19 Dose: 4 unit Levetiracetam (Keppra) 250 mg PO BID [facility] Last Admin: 01/04/18 10:28 Dose: 250 mg Metoprolol Tartrate (Lopressor) 12.5 mg PO BID [facility] Last Admin: 01/04/18 10:29 Dose: 12.5 mg Ondansetron HCl (Zofran Odt) 4 mg PO Q6H PRN PRN Reason: Nausea/Vomiting Ondansetron HCl (Zofran) 4 mg IVP Q6H PRN PRN Reason: Nausea/Vomiting Sodium Chloride (Flush - Normal Saline) 10 ml IVF PRN PRN PRN Reason: Saline Flush
--- NOTE | 2018-01-04 15:16 | PRG ---
DATE OF SERVICE: 01/04/2018 SUBJECTIVE: Ms. Arely Gimenez is not waking up. OBJECTIVE: VITAL SIGNS: Blood pressure 109/80, heart rate is 97, respiratory rate is per mechanical ventilation . HEENT: Pupils are sluggish. LUNGS: Clear. HEART: Regular rhythm. ABDOMEN: Soft. LABORATORY DATA: White count 6.7, hemoglobin 10.0, platelets 290,000. Sodium 139, potassium 3.4, ch loride 100, bicarbonate 23, BUN 24, creatinine 2.73, glucose 165. IMPRESSION: Does not look like any cardiac enzymes were drawn. We expect these to be at least mildl y abnormal, but if her troponin is through the roof, would argue that yesterday's event was a myocard ial infarction. She needs an EEG. Prognosis is dismal for recovery. Blood gas shows respiratory alkalosis. Her rate will be turned down to 10. Hopefully we will see some gradual neurological improvement. At her young age, I would hate to give up on her too early, but she also is much older than her chronological age. Critical care time was 30 minutes.
--- NOTE | 2018-01-04 18:02 | CON ---
DATE OF CONSULTATION: 01/04/2018 HISTORY OF PRESENT ILLNESS: Ms. Arely Gimenez is a 37-year-old black female who was evaluated by Dr. Garcia in 07/2017. She had been having progressive dyspnea, and she underwent cardiac catheterization. There was a 20% LAD, circumflex had a 99% stenosis followed by another 99% stenosis and a distal 99% stenosis. The first obtuse marginal had a 90% stenosis. The right coronary artery had a 99% proximal stenosis. She then underwent CABG by Dr. Onofre on . There was CABG x4 with PAULSON to the LAD, vein graft to first obtuse marginal, second obtuse marginal and right posterior descending. She was seen in the office on 08/2017 for followup. She denied any chest discomfort. She has end-stage renal disease and is on chronic dialysis. She was admitted on 12/31 for altered mentation and hypoglycemia. It was felt that she could probably go home on 01/03. However, on the 01/02, she was on [place] 4 and was noted to be unresponsive. CPR was performed. She was intubated and brought to the unit. PAST MEDICAL HISTORY: End-stage renal disease, on dialysis; hypertension; coronary artery disease; diabetes mellitus; anemia; glaucoma; and chronic anemia. OPERATIONS: CABG, thoracentesis, AV fistula placement and uterine ablation. MEDICATIONS AT HOME: Include albuterol 2 puffs q.4 hours p.r.n., aspirin 81 daily, atorvastatin 40 daily, clonidine 0.1 mg b.i.d., ferrous sulfate 325 daily , Levemir FlexPen 10 units q.p.m. 25 units q.a.m., Keppra 250 b.i.d., Cozaar 25 daily and metoprolol 12.5 mg b.i.d. ALLERGIES: None. SOCIAL HISTORY: She does not smoke or drink. FAMILY HISTORY: Negative for myocardial infarction. REVIEW OF SYSTEMS: Not obtainable with the patient being unresponsive. PHYSICAL EXAMINATION: VITAL SIGNS: Blood pressure 139/68, pulse of 92 and sinus rhythm. HEENT: PERRL. NECK: Supple. CHEST: Clear. CARDIAC: S1 and S2 are normal without any S3, S4 or murmurs. ABDOMEN: Normal bowel sounds without tenderness or organomegaly. EXTREMITIES: Revealed no clubbing, cyanosis or edema. NEUROLOGIC: The patient is unresponsive. LABORATORY AND IMAGING DATA: EKG reveals normal sinus rhythm with low voltage QRS. Hemoglobin 10.0, hematocrit 31.1, white count 6700 and platelets 290,000. A pH 7.48, pCO2 of 29.1 and pO2 of 137.1. Sodium 139, potassium 3.4, chloride 100, carbon dioxide 23, BUN 24 and creatinine 2.73. Troponin I 0.435. IMPRESSION: 1. Cardiopulmonary arrest. 2. Probably demand ischemia, although myocardial infarction cannot be totally ruled out. 3. Status post coronary artery bypass graft x4. 4. Hypoxic encephalopathy. 5. Diabetes. 6. End-stage renal disease, on dialysis. 7. Hypertension. 8. Hypercholesterolemia. PLAN: The patient is intubated. Neurological status will be closely followed. ROBERT
[2018-01-04] MEDS: Acetaminophen 500 MG TAB PO PRN (20:34)
[2018-01-05] MEDS: hydrALAZINE 20 MG/ML VIAL SLOW IVP PRN ×2 (00:02→21:10)
[2018-01-05] MEDS: Acetaminophen 500 MG TAB PO PRN (02:38)
[2018-01-05 06:27] LABS: Hemoglobin 8.4 g/dL (12.0-16.0); Mean Corpuscular HGB CONC 30.9 g/dL (32.0-36.0); Mean Corpuscular Hemoglobin 28.6 pg (27.0-31.0); Mean Corpuscular Volume 92.8 fl (81.0-99.0); Platelet Count 269 thou/uL (130-400); RBC Distribution Width 16.5 % (11.5-14.5); Red Blood Cell (RBC) Count 2.92 mill/uL (4.20-5.40); White Blood Cell (WBC) Count 6.1 thou/uL (4.8-10.8)
[2018-01-05 06:30] LABS: Band 9 % (5-11); Lymphocytes 20 % (21-51); Monocytes 6 % (0-10); Neutrophil 65 % (42-75)
[2018-01-05 06:31] LABS: MDiff Complete? YES
[2018-01-05 06:37] LABS: Anion Gap 9 mmol/L (10-20); BUN (Urea Nitrogen) 28 mg/dL (7.0-18.7); Calc. Creatinine Clearance 29 mL/min (70-130); Calcium 8.4 mg/dL (7.8-10.44); Carbon Dioxide 32 mmol/L (22-29); Chloride 100 mmol/L (98-107); Estimated GFR-MDRD 27; Glucose 119 mg/dL (70-105); Potassium 3.7 mmol/L (3.5-5.1); Sodium 137 mmol/L (136-145)
[2018-01-05 07:28] LABS: ALV-art Gradient 148.475 (0-20); Actual Bicarbonate (HCO3a) 28.8 mEq/L (22-26); Base Excess (BEa) 4.9 mEq/L (0 (+/-) 2.5); CO2 Tension 40.1 mmHg (35.0-45.0); Calcium, Ionized 1.3 mmol/L (1.12-1.30); Hematocrit-ABG 28.9 % (36.0-47.0); Hemoglobin (Hb) 7.9 g/dL (12.0-16.0); O2 Tension (PaO2) 86.6 mmHg (80.0-100.0); Puncture Site RRA; pH, Arterial 7.48 (7.35-7.45)
--- NOTE | 2018-01-05 08:23 | RAD ---
SINGLE VIEW OF THE CHEST: Comparison: 01-04-18 History: Ventilated patient with respiratory failure. FINDINGS: Single view of the chest shows a normal sized cardiomediastinal silhouette. The patient is status pos t sternotomy. The lines and tubes are unchanged in position. There is no evidence of consolidation, m ass, or pleural effusion. IMPRESSION: No evidence of acute cardiopulmonary disease. POS: [facility]
--- NOTE | 2018-01-05 09:22 | PRG ---
DATE OF SERVICE: 01/05/2018 SUBJECTIVE: Ms. Gimenez is a 37-year-old black female with known history of ESRD, status post cardior espiratory arrest. She was noted to be in florid pulmonary edema. She has history of consecutive di alysis in the last 3 days. We have probably taken off a total of 9 liters of fluid in the last 3 day s with this patient. This morning she is more arousable and can follow simple commands, but still sl eepy. PHYSICAL EXAMINATION: VITAL SIGNS: Blood pressure 136/81, heart rate 80, respiratory rate is 18, pulse ox 93%. GENERAL: Sleepy, but arousable, intubated on ventilator support. SKIN: Adequate turgor. HEENT: Slightly pale conjunctivae, anicteric sclerae. NECK: No neck mass, no carotid bruits, no JVD. CHEST: No deformities. LUNGS: Decreased breath sounds. HEART: Normal sinus rhythm. No murmur, no gallops, no rubs. ABDOMEN: Globular, soft, nontender, no masses. EXTREMITIES: No edema, no deformities. MEDICATIONS: 01/05/2018 - Reviewed. LABORATORY: 01/05/2018 - White count 6.1, hemoglobin 8.4, sodium 137, potassium 3.7, chloride 100, c arbon dioxide 32, BUN 28, creatinine 2.47, calcium 8.4. Chest x-ray - no overt congestive heart failure - much improved. ASSESSMENT AND PLAN: 1. Congestive heart failure/acute respiratory failure - aggressive dialysis has been done the last 3 days. As previously mentioned, we have probably taken about 9 liters of fluid with consecutive dial ysis. 2. End-stage renal disease. We will resume back on her regular Thursday, , and Thursday dial ysis regimen. My plan is to do a 3-hour hemodialysis with this patient. Again, fluid removal will b e maxed out as tolerated by the patient. 3. Anemia, continuing weekly Epogen and p.r.n. blood transfusion. Overall, prognosis remains guarded.
[2018-01-05] MEDS: Dorzolamide HCl 2% Ophth Soln 10 ml Bottle EA EYE SCH ×2 (09:44→20:54)
[2018-01-05] MEDS: Aspirin 81 mg Enteric Coated Tablet PO SCH (09:44)
[2018-01-05] MEDS: levETIRAcetam 500 MG TAB PO SCH ×2 (09:45→20:54)
[2018-01-05] MEDS: Metoprolol Tartrate 25 MG TAB PO SCH ×2 (09:45→20:54)
[2018-01-05] MEDS: Famotidine 20 MG TAB PO SCH (09:45)
[2018-01-05] MEDS: Ferrous Sulfate 325 MG TAB PO SCH (09:45)
[2018-01-05] MEDS: HumaLOG 300 UNITS/3 ML VIAL SC PRN (09:49)
--- NOTE | 2018-01-05 12:41 | PRG ---
DATE OF SERVICE: 01/05/2018 SUBJECTIVE: Ms. Gimenez has waken up surprisingly. She intermittently follows commands, but still is a little too somnolent to extubate. OBJECTIVE: VITAL SIGNS: Blood pressure 160/95. She is currently being dialyzed. Heart rate 73, respiratory ra te is 16. Intake and output is positive 1052. LUNGS: Clear. HEART: Regular rhythm. ABDOMEN: Soft. LABORATORY DATA: White count 6.1, hemoglobin 8.4, platelets 269,000. Sodium 137, potassium 3.7, chloride 100, bicarbonate 32, BUN 28, creatinine 3.47. Chest radiograph h as cleared. IMPRESSION: 1. End-stage renal disease. 2. Status post arrest, ?secondary to post-dialysis hypotension. Her EEG did not show seizure activi ty, report is not out, but I was told just some mild swelling by the cotton program technician. We will continue to mechanically ventilate her, although we dramatically decreased ventilatory suppor t today. Critical care time: 30 minutes.
--- NOTE | 2018-01-05 15:31 | PDOC.PN ---
- Subjective Encounter Start Date: 01/05/18 Encounter Start Time: 09:40 Pt seen for followup re: cardiac arrest. Intubated, but waking up to voice, answering questions by nodding or shaking head. Denies chest pain, shortness of breath, fevers or chills. - Objective MAR Reviewed: Yes Vital Signs & Weight: Vital Signs (12 hours) Temp Pulse Resp Pulse Ox 01/05/18 15:00 97.9 F 01/05/18 14:00 19 01/05/18 13:13 75 01/05/18 12:00 97.5 F L 13 01/05/18 10:51 18 01/05/18 10:47 73 01/05/18 10:00 15 01/05/18 08:59 80 01/05/18 08:00 97.6 F 73 18 95 01/05/18 07:45 17 01/05/18 07:12 82 01/05/18 06:00 19 01/05/18 04:00 98.9 F 14 Weight Admit Weight 139 lb Weight 126 lb 1.671 oz Most Recent Monitor Data Heart Rate from ECG 85 NIBP 156/90 NIBP BP-Mean 108 Respiration from ECG 12 SpO2 95 I&O: 01/04/18 01/05/18 01/06/18 06:59 06:59 06:59 Intake Total 120 1092 160 Output Total 4585 40 30 Balance -4465 1052 130 Result Diagrams: 01/05/18 04:45 01/05/18 04:45 Additional Labs: Accuchecks 01/05/18 01/05/18 01/04/18 09:50 05:06 22:24 POC Glucose 189 H 120 H 196 H 01/04/18 15:54 POC Glucose 183 H Phys Exam - Physical Examination Intubated ETT Neck: no nodes Respiratory: clear to auscultation bilateral Cardiovascular: RRR Gastrointestinal: soft Neurological: moves all 4 limbs Psychiatric: normal affect Dx/Plan (1) Cardiac arrest Code(s): I46.9 - CARDIAC ARREST, CAUSE UNSPECIFIED Status: Acute (2) Encephalopathy acute Code(s): G93.40 - ENCEPHALOPATHY, UNSPECIFIED Status: Acute (3) ESRD (end stage renal disease) on dialysis Code(s): N18.6 - END STAGE RENAL DISEASE; Z99.2 - DEPENDENCE ON RENAL DIALYSIS Status: Chronic (4) DM type 1 (diabetes mellitus, type 1) Status: Chronic Qualifiers: Diabetes mellitus complication status: with ophthalmic complications Diabetes mellitus complication detail: with diabetic retinopathy Diabetic retinopathy severity: with unspecified retinopathy severity Diabetes mellitus macular edema: macular edema presence unspecified Laterality: bilateral Qualified Code(s): E10.319 - Type 1 diabetes mellitus with unspecified diabetic retinopathy without macular edema (5) Glaucoma Code(s): H40.9 - UNSPECIFIED GLAUCOMA Status: Chronic (6) Hypertension Code(s): I10 - ESSENTIAL (PRIMARY) HYPERTENSION Status: Chronic Qualifiers: Hypertension type: essential hypertension Qualified Code(s): I10 - Essential (primary) hypertension (7) CAD (coronary artery disease) Code(s): I25.10 - ATHSCL HEART DISEASE OF [place] CORONARY ARTERY W/O ANG PCTRS Status: Chronic (8) Hypotension Status: Resolved - Plan * . Dialysis per nephrology service. Cardiology, PCCM following. Monitor vital signs, titrate antihypertensives as needed. Review of Systems - Medications/Allergies Allergies/Adverse Reactions: Allergies Allergy/AdvReac Type Severity Reaction Status Date / Time No Known Drug Allergies Allergy Verified 07/03/17 21:53 Medications: Current Medications Acetaminophen (Tylenol) 1,000 mg PO Q6H PRN PRN Reason: Headache/Fever or Mild Pain Last Admin: 01/05/18 02:38 Dose: 1,000 mg Albuterol Sulfate (Proventil Hfa) 2 puff INH Q4HR PRN PRN Reason: SOB &/or Wheezing Aspirin (Ecotrin) 81 mg PO DAILY [facility] Last Admin: 01/05/18 09:44 Dose: 81 mg Benzonatate (Tessalon) 100 mg PO Q4H PRN PRN Reason: Cough Last Admin: 01/02/18 22:56 Dose: 100 mg Clonidine (Catapres) 0.1 mg PO Q4H PRN PRN Reason: Systolic BP > 180 Last Admin: 01/04/18 23:21 Dose: 0.1 mg Dextrose/Water (Dextrose 50%) 25 gm SLOW IVP PRN PRN PRN Reason: Hypoglycemia Dorzolamide HCl (Trusopt 2% Ophth Soln) 2 drop EA EYE BID [facility] Last Admin: 01/05/18 09:44 Dose: 2 drop Epoetin Enrique (Procrit) 7,500 units SC Q7D [facility] Last Admin: 01/01/18 22:16 Dose: 7,500 units Famotidine (Pepcid) 20 mg PO 0900 [facility] Last Admin: 01/05/18 09:45 Dose: 20 mg Ferrous Sulfate (Feosol) 325 mg PO DAILY [facility] Last Admin: 01/05/18 09:45 Dose: 325 mg Glucagon (Glucagon) 1 mg IM PRN PRN PRN Reason: Hypoglycemia Heparin Sodium (Porcine) (Heparin Lock Flush 100 Units/Ml) 500 units IVF PRN PRN PRN Reason: Heparin Flush Last Admin: 01/02/18 06:32 Dose: 200 unit Hydralazine HCl (Apresoline) 10 mg SLOW IVP Q4H PRN PRN Reason: FOR SBP > 170 Last Admin: 01/05/18 00:02 Dose: 10 mg Dextrose/Water (D5w) 1,000 mls @ 0 mls/hr IV .Q0M PRN; As Directed PRN Reason: Hypoglycemia Norepinephrine Bitartrate 8 mg (/ Sodium Chloride) 258 mls @ 0 mls/hr IVPB INF PRN; Protocol; Titrate PRN Reason: TO KEEP SBP > 100 Insulin Human Lispro (Humalog) 0 units SC .MILD SLIDING SCALE PRN PRN Reason: Mild Correctional Scale Last Admin: 01/05/18 09:49 Dose: 2 unit Insulin Human Lispro (Humalog) 0 units SC .BEDTIME SLIDING SC PRN PRN Reason: Bedtime Correctional Scale Last Admin: 01/01/18 22:19 Dose: 4 unit Levetiracetam (Keppra) 250 mg PO BID [facility] Last Admin: 01/05/18 09:45 Dose: 250 mg Metoprolol Tartrate (Lopressor) 12.5 mg PO BID [facility] Last Admin: 01/05/18 09:45 Dose: 12.5 mg Ondansetron HCl (Zofran Odt) 4 mg PO Q6H PRN PRN Reason: Nausea/Vomiting Ondansetron HCl (Zofran) 4 mg IVP Q6H PRN PRN Reason: Nausea/Vomiting Last Admin: 01/04/18 20:33 Dose: 4 mg Sodium Chloride (Flush - Normal Saline) 10 ml IVF PRN PRN PRN Reason: Saline Flush
[2018-01-06] MEDS: hydrALAZINE 20 MG/ML VIAL SLOW IVP PRN (03:06)
[2018-01-06 05:55] LABS: Anion Gap 13 mmol/L (10-20); BUN (Urea Nitrogen) 26 mg/dL (7.0-18.7); Calc. Creatinine Clearance 32 mL/min (70-130); Calcium 8.5 mg/dL (7.8-10.44); Carbon Dioxide 29 mmol/L (22-29); Chloride 102 mmol/L (98-107); Estimated GFR-MDRD 30; Glucose 267 mg/dL (70-105); Potassium 3.1 mmol/L (3.5-5.1); Sodium 141 mmol/L (136-145)
[2018-01-06] MEDS: HumaLOG 300 UNITS/3 ML VIAL SC PRN ×3 (06:08→21:52)
[2018-01-06 07:18] LABS: Hemoglobin 8.8 g/dL (12.0-16.0); Mean Corpuscular HGB CONC 30.6 g/dL (32.0-36.0); Mean Corpuscular Hemoglobin 28.5 pg (27.0-31.0); Mean Corpuscular Volume 93.3 fl (81.0-99.0); Platelet Count 294 thou/uL (130-400); RBC Distribution Width 16.5 % (11.5-14.5); Red Blood Cell (RBC) Count 3.07 mill/uL (4.20-5.40); White Blood Cell (WBC) Count 7.6 thou/uL (4.8-10.8)
[2018-01-06] MEDS: Ferrous Sulfate 325 MG TAB PO SCH (07:18)
[2018-01-06] MEDS: Aspirin 81 mg Enteric Coated Tablet PO SCH (07:18)
[2018-01-06] MEDS: levETIRAcetam 500 MG TAB PO SCH ×2 (07:18→20:50)
[2018-01-06] MEDS: Dorzolamide HCl 2% Ophth Soln 10 ml Bottle EA EYE SCH ×2 (07:18→20:54)
[2018-01-06] MEDS: Famotidine 20 MG TAB PO SCH (07:18)
[2018-01-06] MEDS: Metoprolol Tartrate 25 MG TAB PO SCH ×2 (07:19→20:49)
[2018-01-06 07:44] LABS: Band 20 % (5-11); Hypochromia SLIGHT = 6-15 cells (100X) (0-5/hpf); Lymphocytes 15 % (21-51); MDiff Complete? YES; Monocytes 5 % (0-10); Neutrophil 60 % (42-75); Polychromasia SLIGHT = 2-3 cells (100X) (0-2/hpf)
--- NOTE | 2018-01-06 08:15 | RAD ---
FRONTAL VIEW CHEST: Comparison: 01-05-18 Indication: Ventilated patient. Follow up. FINDINGS: Right sided vascular catheter again seen. Endotracheal tube and enteric catheter remain in place. The re is hazy density of each lung which is predominately perihilar in distribution and may relate to ed vito or alternatively an inflammatory process. Correlate clinically. No additional significant overall change. IMPRESSION: Bilateral patchy perihilar opacities which may be on the basis of edema in the current clinical zion nts. An inflammatory process is not excluded. Continued follow up is recommended. POS: [facility]
[2018-01-06] MEDS: Losartan 25 MG TAB PO SCH (09:20)
--- NOTE | 2018-01-06 09:30 | PRG ---
DATE OF SERVICE: 01/06/2018 RENAL MEDICINE SUBJECTIVE: Ms. Gimenez is a 37-year-old black female with ESRD and being followed up by the [facility] for her maintenance hemodialysis. She has had cardiorespiratory arrest where she subsequently was intubated. The exact etiology remains unclear. No evidence of pulmonary embolism or overt MS wi th this patient. She is currently arousable, but still intubated. Please note patient has been on CPAP in the last 12 hours. PHYSICAL EXAMINATION: VITAL SIGNS: Blood pressure is 145/82, heart rate 77, respiratory rate 14, pulse ox 96%. GENERAL: The patient is arousable, lethargic, sleepy, not in overt distress, intubated on CPAP. HEENT: Slightly pale conjunctivae, anicteric sclerae. NECK: No neck mass, no carotid bruits, no JVD. CHEST: No deformities. LUNGS: Decreased breath sounds. HEART: Normal sinus rhythm. No murmurs, no gallops, no rubs. ABDOMEN: Globular, soft, nontender, no masses. EXTREMITIES: No edema. MEDICATIONS: Medications of 01/06/2018 was reviewed. LABORATORY DATA: Laboratories of 01/06/2018; white count 7.6, hemoglobin 8.8, sodium 141, potassium 3.1, chloride 102, carbon dioxide 29, BUN 26, creatinine 2.22, glucose 267, calcium 8.5. ASSESSMENT AND PLAN: 1. Status post cardiorespiratory arrest - stable. Patient currently on continuous positive airway p ressure. Eventually, she will be weaned off once her mentation is much improved. 2. Congestive heart failure - status post hemodialysis yesterday. She has received 3-4 consecutive days of dialysis. My plan is to hold off any dialysis for the moment. 3. End-stage renal disease - we will resume back her Thursday, , and Thursday hemodialysis re gimen. Again, fluid removal only as tolerated by the patient. 4. Anemia p.r.n. blood transfusion. Continuing weekly Epogen regimen with this patient. Currently, she is on 7500 units subcutaneously every week. Overall prognosis remains guarded.
[2018-01-06] MEDS ORDERED: HumaLOG 300 UNITS/3 ML VIAL SC PRN (10:02)
--- NOTE | 2018-01-06 18:31 | PDOC.PN ---
- Subjective Encounter Start Date: 01/06/18 Encounter Start Time: 18:20 Subjective: f/u for acute resp failure and s/p cardiac arrest with ROSC. Remains on -: CPAP mech vent with slow return of mentation. Tolerated successive -: HD sessions but currently on hold. - Objective MAR Reviewed: Yes Vital Signs & Weight: Vital Signs (12 hours) Temp Pulse Resp Pulse Ox 01/06/18 16:00 97.7 F 14 01/06/18 15:01 83 01/06/18 14:00 14 01/06/18 13:29 84 01/06/18 12:00 98.5 F 14 01/06/18 10:40 77 01/06/18 10:00 14 01/06/18 07:30 98.2 F 90 16 96 01/06/18 07:00 98.2 F 01/06/18 06:49 90 Weight Admit Weight 139 lb Weight 126 lb 5.184 oz Most Recent Monitor Data Heart Rate from ECG 82 NIBP 168/97 NIBP BP-Mean 141 Respiration from ECG 15 SpO2 97 I&O: 01/05/18 01/06/18 01/07/18 06:59 06:59 06:59 Intake Total 1092 1194 190 Output Total 40 65 0 Balance 1052 1129 190 Result Diagrams: 01/06/18 04:40 01/06/18 04:40 Additional Labs: Accuchecks 01/06/18 01/06/18 01/05/18 16:42 09:54 22:13 POC Glucose 282 H 216 H 176 H Laboratory Tests 01/04/18 01/04/18 01/05/18 03:30 03:30 04:45 Hgb 10.0 L Potassium 3.4 L 3.7 Creatinine 2.73 H 2.47 H 01/05/18 04:45 Hgb 8.4 L Potassium Creatinine Radiology Reviewed by me: Yes (PCXR - patchy infiltrates bilat) EKG Reviewed by me: Yes (Tele - SR in 70's) Phys Exam - Physical Examination lethargic on mech vent ETT in place Neck: no JVD, supple Respiratory: no wheezing, clear to auscultation bilateral Cardiovascular: RRR Gastrointestinal: soft, non-tender, no distention, positive bowel sounds Musculoskeletal: no edema, pulses present Neurological: moves all 4 limbs Skin: normal turgor, cap refill <2 seconds Dx/Plan (1) Acute respiratory failure with hypoxia Code(s): J96.01 - ACUTE RESPIRATORY FAILURE WITH HYPOXIA Status: Resolved Comment: Remains on CPAP mech vent with slow wean pending mentation and weaning parameters met (2) Cardiac arrest Code(s): I46.9 - CARDIAC ARREST, CAUSE UNSPECIFIED Status: Acute Comment: s/ p ACLS and cardioversion, stable currently (3) Hypotension, iatrogenic Code(s): I95.89 - OTHER HYPOTENSION Status: Acute Comment: Iatrogenic, resolved (4) Encephalopathy acute Code(s): G93.40 - ENCEPHALOPATHY, UNSPECIFIED Status: Acute Comment: Multifactorial (5) ESRD (end stage renal disease) on dialysis Code(s): N18.6 - END STAGE RENAL DISEASE; Z99.2 - DEPENDENCE ON RENAL DIALYSIS Status: Chronic Comment: HD per Renal service (6) 3-vessel CAD Status: Acute Comment: Continue med mgmt, Cardiology assistance appreciated (7) Acute exacerbation of CHF (congestive heart failure) Code(s): I50.9 - HEART FAILURE, UNSPECIFIED Status: Acute Qualifiers: Qualified Code(s): I50.43 - Acute on chronic combined systolic (congestive) and diastolic (congestive) heart failure Comment: Resolving, serial HD tolerated (8) Chronic anemia Code(s): D64.9 - ANEMIA, UNSPECIFIED Status: Chronic Comment: Secondary to CKD, stable currently - Plan social media content specialist, respiratory therapy, DVT proph w/SCDs Continue aggressive pulmonary support -: CPAP weaning per protocol -: Continue ASA 81mg daily -: Continue Solumedrol -: AM lab: BMP, CBC * PCXR in am * Continue Nutritional support Nepro 25ml/h
[2018-01-07] MEDS: hydrALAZINE 20 MG/ML VIAL SLOW IVP PRN ×3 (02:05→23:34)
[2018-01-07] MEDS: HumaLOG 300 UNITS/3 ML VIAL SC PRN ×3 (03:45→21:31)
[2018-01-07 04:38] LABS: Anion Gap 13 mmol/L (10-20); BUN (Urea Nitrogen) 46 mg/dL (7.0-18.7); Calc. Creatinine Clearance 23 mL/min (70-130); Calcium 8.8 mg/dL (7.8-10.44); Carbon Dioxide 28 mmol/L (22-29); Chloride 99 mmol/L (98-107); Estimated GFR-MDRD 21; Glucose 381 mg/dL (70-105); Potassium 3.6 mmol/L (3.5-5.1); Sodium 136 mmol/L (136-145)
[2018-01-07 05:02] LABS: Band 4 % (5-11); Hemoglobin 10.3 g/dL (12.0-16.0); Hypochromia SLIGHT = 6-15 cells (100X) (0-5/hpf); Lymphocytes 11 % (21-51); MDiff Complete? YES; Mean Corpuscular HGB CONC 31.1 g/dL (32.0-36.0); Mean Corpuscular Hemoglobin 29.1 pg (27.0-31.0); Mean Corpuscular Volume 93.6 fl (81.0-99.0); Mean Platelet Volume 8.8 fL (7.4-10.4); Monocytes 2 % (0-10); Neutrophil 83 % (42-75); PLT Morphology Comment Appears Adequate; Platelet Count 327 thou/uL (130-400); RBC Distribution Width 16.2 % (11.5-14.5); Red Blood Cell (RBC) Count 3.53 mill/uL (4.20-5.40); Tear Drops SLIGHT = 2-5 cells (100X) (0-1/hpf); White Blood Cell (WBC) Count 8.1 thou/uL (4.8-10.8)
[2018-01-07] MEDS ORDERED: Heparin 10,000 UNITS/ 10 ML VIAL ONE (08:00)
--- NOTE | 2018-01-07 08:10 | RAD ---
SINGLE VIEW OF THE CHEST: COMPARISON: 01/06/18. HISTORY: Ventilated patient with respiratory failure. FINDINGS: A single view of the chest shows a normal-size cardiomediastinal silhouette. The patient is status p ost sternotomy. The lines and tubes are unchanged in position. There is no evidence of consolidatio n, mass, or pleural effusion. IMPRESSION: No evidence of acute cardiopulmonary disease. POS: [facility]
--- NOTE | 2018-01-07 09:17 | PRG ---
DATE OF SERVICE: 01/01/2018 SUBJECTIVE: Ms. Gimenez is a 37-year-old black female [facility]. She is currently on maintenance hemodialysis. She is undergoing dialysis today. I am at the bedside, s upervising her dialysis. We are attempting about 3.5 liters of fluid removal as tolerated by the pat ient. There was a problem with the dialysis access were the arterial line was not having an adequate blood flow. No acute events noted last night. OBJECTIVE: VITAL SIGNS: Blood pressure 160/94, heart rate 83, respiratory rate 12, and pulse ox 94%. GENERAL: Lethargic, sleepy, but arousable and can follow simple commands, intubated on the ventilato r support. SKIN: Adequate turgor. HEENT: She has pinkish conjunctivae, anicteric sclerae. NECK: No neck mass, no carotid bruits, no JVD. CHEST: No deformities. LUNGS: Decreased breath sounds. HEART: Normal sinus rhythm. No murmur, no gallops, no rubs. ABDOMEN: Globular, soft, nontender, no masses. EXTREMITIES: No edema or deformities. MEDICATIONS: 01/07/2018 reviewed. LABORATORY DATA: On 01/07/2018 - White count 8.1, hemoglobin 10.3, hematocrit 33, and platelet count 327,000. Sodium 136, potassium 3.6, chloride 99, carbon dioxide 28, BUN 46, creatinine 3.04, glucos e 381, and calcium 8.8. ASSESSMENT AND PLAN: 1. End-stage renal disease, stable. Continue current Thursday, , and Thursday dialysis regim en. Attempting 3.5 liter fluid removal as tolerated. 2. Anemia - on weekly Epogen. 3. Status post cardiorespiratory arrest, stable. The patient is able to follow simple commands. Ho wever, still intubated. Overall, prognosis remains guarded.
[2018-01-07] MEDS: Aspirin 81 mg Enteric Coated Tablet PO SCH (11:43)
[2018-01-07] MEDS: Ferrous Sulfate 325 MG TAB PO SCH (11:43)
[2018-01-07] MEDS: Dorzolamide HCl 2% Ophth Soln 10 ml Bottle EA EYE SCH ×2 (11:43→21:27)
[2018-01-07] MEDS: levETIRAcetam 500 MG TAB PO SCH ×2 (11:44→21:28)
[2018-01-07] MEDS: Famotidine 20 MG TAB PO SCH (11:44)
[2018-01-07] MEDS: Losartan 25 MG TAB PO SCH ×3 (12:15→16:49)
[2018-01-07] MEDS: Metoprolol Tartrate 25 MG TAB PO SCH ×3 (12:16→21:28)
--- NOTE | 2018-01-07 16:04 | PDOC.PN ---
- Subjective Encounter Start Date: 01/07/18 Encounter Start Time: 15:00 Subjective: f/u for acute hypoxic resp failure on [facility] and s/p cardiac arrest -: with ROSC and unclear etiology. Trial of CPAP now converted to rate on 30% -: FIO2. Restless per nursing and awake. Tolerated HD with 3L removed. - Objective MAR Reviewed: Yes Vital Signs & Weight: Vital Signs (12 hours) Temp Pulse Pulse Pulse Resp BP BP 01/07/18 14:53 88 87 171/100 H 161/90 H 01/07/18 13:10 86 01/07/18 10:30 87 01/07/18 10:00 15 01/07/18 08:00 97.6 F 83 15 01/07/18 06:44 83 01/07/18 06:00 98.2 F 13 Pulse Ox Pulse Ox Pulse Ox 01/07/18 14:53 94 L 93 L 01/07/18 13:10 01/07/18 10:30 01/07/18 10:00 01/07/18 08:00 97 01/07/18 06:44 01/07/18 06:00 Weight Admit Weight 139 lb Weight 126 lb 5.184 oz Most Recent Monitor Data Heart Rate from ECG 88 NIBP 126/78 NIBP BP-Mean 99 Respiration from ECG 14 SpO2 97 I&O: 01/06/18 01/07/18 01/08/18 06:59 06:59 06:59 Intake Total 1194 1068 Output Total 65 9 0 Balance 1129 1059 0 Result Diagrams: 01/07/18 03:48 01/07/18 03:48 Additional Labs: Accuchecks 01/07/18 01/07/18 01/07/18 11:41 10:34 03:42 POC Glucose 232 H 249 H 352 H 01/06/18 01/06/18 21:51 16:42 POC Glucose 285 H 282 H Radiology Reviewed by me: Yes (PCXR - no acute process) EKG Reviewed by me: Yes (Tele - SR) Phys Exam - Physical Examination awake, shakes head and nods, attempting to pull ETT HEENT: PERRLA, oral pharynx no lesions Neck: no JVD, supple Respiratory: no wheezing, clear to auscultation bilateral Cardiovascular: RRR Gastrointestinal: soft, non-tender, no distention, positive bowel sounds Musculoskeletal: no edema, pulses present Neurological: moves all 4 limbs Skin: normal turgor, cap refill <2 seconds Deviation from normal: Quinones with small volume maría urine Dx/Plan (1) Acute respiratory failure with hypoxia Code(s): J96.01 - ACUTE RESPIRATORY FAILURE WITH HYPOXIA Status: Resolved Comment: CPAP converted to rate currently, continue mech vent with slow wean pending mentation and weaning parameters achieved (2) Cardiac arrest Code(s): I46.9 - CARDIAC ARREST, CAUSE UNSPECIFIED Status: Acute Comment: s/ p ACLS and cardioversion, stable currently (3) Hypotension, iatrogenic Code(s): I95.89 - OTHER HYPOTENSION Status: Acute Comment: Iatrogenic, resolved (4) Encephalopathy acute Code(s): G93.40 - ENCEPHALOPATHY, UNSPECIFIED Status: Acute Comment: Multifactorial (5) ESRD (end stage renal disease) on dialysis Code(s): N18.6 - END STAGE RENAL DISEASE; Z99.2 - DEPENDENCE ON RENAL DIALYSIS Status: Chronic Comment: HD per [facility] (6) 3-vessel CAD Status: Acute Comment: Continue med mgmt, Cardiology assistance appreciated (7) Acute exacerbation of CHF (congestive heart failure) Code(s): I50.9 - HEART FAILURE, UNSPECIFIED Status: Acute Qualifiers: Qualified Code(s): I50.43 - Acute on chronic combined systolic (congestive) and diastolic (congestive) heart failure Comment: Resolving, serial HD tolerated (8) Chronic anemia Code(s): D64.9 - ANEMIA, UNSPECIFIED Status: Chronic Comment: Secondary to CKD, stable currently - Plan case management social worker, respiratory therapy, DVT proph w/SCDs Continue pulmonary supportive measures -: Wean off mech ventilation as clinically indicated -: HD per [facility] -: Continue ASA and Lipitor -: AM lab: BMP, CBC * PCXR
--- NOTE | 2018-01-07 18:43 | PRG ---
DATE OF SERVICE: 01/07/2018 SUBJECTIVE: Ms. Gimenez is still too somnolent to extubate. She will wake up and nod. She quickly g oes back to sleep. On pressure support and PEEP, her minute volume is only 3 liters a minute when sh clyde is asleep,, so she has been placed back on a rate as a backup. OBJECTIVE: VITAL SIGNS: Blood pressure 126/78, heart rate 88, respiratory rate is 10. HEENT: Pupils react. She will awake and move all of her extremities and nod to questions, but she q uickly goes back to sleep. LUNGS: Clear. HEART: Regular rhythm. ABDOMEN: Soft. LABORATORY DATA: White count 8.1, hemoglobin 10.3, platelets 327. Sodium 136, potassium 3.6, chloride 99, bicarbonate 28, BUN 46, creatinine 3.04. IMPRESSION: 1. Status post cardiorespiratory arrest after dialysis ? brought on by hypotension. 2. Mild anoxic brain injury, improving a little bit each day. 3. Status post admission with hypoglycemia. 4. Status post hypotension with blood pressure medicines after admission leading to transfer to the critical care unit. 5. Pulmonary edema in the morning prior to her arrest. This was resolved clinically after her emerg ent dialysis. Her chest radiograph has been reviewed by me and this is clear now. 6. End-stage seen disease, on dialysis. 7. Anemia of chronic disease. PLAN: Continue mechanical ventilation until she is neurologically stable. She did not pass a leak test yesterday or today, so she is on IV steroids. We will reassess her in t he morning. Critical care time 35 minutes.
[2018-01-07] MEDS ORDERED: Activase 2 MG VIAL CATH SCH (19:30)
[2018-01-07] MEDS ORDERED: Sterile Water 10 ML VIAL IVP SCH (19:30)
[2018-01-07] MEDS ORDERED: Sterile Water 20 ML VIAL IVP SCH (19:45)
[2018-01-07] MEDS: Atorvastatin Calcium 40 MG TAB PO SCH (21:28)
[2018-01-08] MEDS: HumaLOG 300 UNITS/3 ML VIAL SC PRN ×3 (03:32→21:13)
[2018-01-08 04:09] LABS: Anion Gap 12 mmol/L (10-20); BUN (Urea Nitrogen) 43 mg/dL (7.0-18.7); Calc. Creatinine Clearance 27 mL/min (70-130); Calcium 8.8 mg/dL (7.8-10.44); Carbon Dioxide 29 mmol/L (22-29); Chloride 102 mmol/L (98-107); Estimated GFR-MDRD 25; Glucose 453 mg/dL (70-105); Potassium 3.7 mmol/L (3.5-5.1); Sodium 139 mmol/L (136-145)
[2018-01-08 04:35] LABS: Band 4 % (5-11); Lymphocytes 8 % (21-51); MDiff Complete? YES; Mean Corpuscular HGB CONC 31.7 g/dL (32.0-36.0); Mean Corpuscular Hemoglobin 29.5 pg (27.0-31.0); Mean Platelet Volume 8.8 fL (7.4-10.4); Monocytes 2 % (0-10); Neutrophil 86 % (42-75); PLT Morphology Comment Appears Adequate; Platelet Count 361 thou/uL (130-400); RBC Distribution Width 16.4 % (11.5-14.5); Red Blood Cell (RBC) Count 3.39 mill/uL (4.20-5.40); White Blood Cell (WBC) Count 11.4 thou/uL (4.8-10.8)
--- NOTE | 2018-01-08 07:46 | RAD ---
SINGLE VIEW CHEST: Date: 01/08/18 COMPARISON: 01/07/18. HISTORY: Ventilated patient with respiratory failure. FINDINGS: Single view of the chest shows a normal sized cardiomediastinal silhouette. The patient is status pos t sternotomy. Lines and tubes are unchanged in position. No evidence of consolidation, mass, or pleur al effusion. IMPRESSION: No evidence of acute cardiopulmonary disease. POS: OFF
[2018-01-08] MEDS: levETIRAcetam 500 MG TAB PO SCH ×2 (09:22→21:29)
[2018-01-08] MEDS: Aspirin 81 mg Enteric Coated Tablet PO SCH (09:23)
[2018-01-08] MEDS: Metoprolol Tartrate 25 MG TAB PO SCH ×2 (09:23→21:28)
[2018-01-08] MEDS: Famotidine 20 MG TAB PO SCH (09:24)
[2018-01-08] MEDS: Ferrous Sulfate 325 MG TAB PO SCH (09:24)
[2018-01-08] MEDS: hydrALAZINE 20 MG/ML VIAL SLOW IVP PRN ×2 (09:24→12:29)
[2018-01-08] MEDS: Dorzolamide HCl 2% Ophth Soln 10 ml Bottle EA EYE SCH ×2 (09:26→21:13)
--- NOTE | 2018-01-08 12:09 | PRG ---
DATE OF SERVICE: 01/08/2018 SUBJECTIVE: Blood pressure is mildly elevated this morning, it is 170/97. She had one blood pressur e is in the 190s on repeat check, this is better. She has a history of becoming hypotensive with adjustments in her blood pressure medicine, so she is having dialysis today. This will likely be better after dialysis. She is more alert today. Her intake and output was positive 1073 mL. OBJECTIVE: LUNGS: Clear. HEART: Regular rhythm. ABDOMEN: Soft and nontender. EXTREMITIES: Without asymmetry or edema. NEUROLOGICAL: She is nonfocal. Moves all her extremities equally and more quickly responded to ques tions. LABORATORY DATA: White count 11.4, hemoglobin 10, platelets 361,000. Sodium 139, potassium 3.7, chloride 102, bicarb 29, BUN 43, creatinine 2.6. IMPRESSION: 1. Status post cardiorespiratory arrest? secondary to post-dialysis hypotension. 2. Improving hypoperfusion brain injury. 3. Diabetes with poor control at this time. 4. End-stage renal disease on dialysis. 5. Status post admission for hypoglycemia. 6. Status post pulmonary edema leading to dialysis today over rest. Chest radiograph today shows no pulmonary edema. PLAN: We will continue supportive care. I felt she was a candidate for extubation. She did not have a leak with deflation of her cuff, but she has had 2 days of steroids. I felt this was most likely related to upper airway anatomy. She has been successfully extubated. She has no po st-extubation stridor or respiratory distress. We will discontinue her steroids. CRITICAL CARE TIME: 35 minutes.
--- NOTE | 2018-01-08 15:59 | PRG ---
DATE OF SERVICE: 01/08/2018 SUBJECTIVE: Ms. Gimenez is a 37-year-old black female followed up at the [facility] for her mainte nance hemodialysis. She did receive dialysis yesterday. Several liters of fluid were removed. She tolerated the said treatment. Today, she is noted to be awake, but still sleepy. She is now extubat ed. OBJECTIVE: VITAL SIGNS: Blood pressure is currently at 164/97, heart rate 74, respiratory rate 16, pulse oximet ry 96%. GENERAL: Noted to be awake, but sleepy, not in distress. SKIN: Adequate turgor. HEENT: Pinkish conjunctivae, anicteric sclerae. NECK: No neck mass, no carotid bruits, no JVD. CHEST: No deformities. LUNGS: Decreased breath sounds. HEART: Normal sinus rhythm. No murmur, no gallops, no rubs. ABDOMEN: Globular, soft, nontender, no masses. EXTREMITIES: No edema. MEDICATIONS: Medications of 01/08/2018, reviewed. LABORATORY DATA: Laboratories of 01/08/2018, white count 11.4, hemoglobin 10. Sodium 139, potassium 3.7, chloride 102, carbon dioxide 29, BUN 43, creatinine 2.6, glucose 453, calcium 8.8. ASSESSMENT AND PLAN: 1. Status post cardiorespiratory arrest - much improved, off ventilator support. Currently extubate d. 2. Decreased mentation - the patient can follow simple commands. Unclear if she may have some trans ient episode of hypoxemic encephalopathy. 3. End-stage renal disease, stable. We will continue 3 times a week hemodialysis. Again, fluid rem oval as tolerated with this patient. We have been challenging her with regards to the fluid removal. 4. Labile hypertension. Continue to observe and adjust blood pressure medications. 5. Anemia, currently on weekly Epogen.
[2018-01-08] MEDS: Epoetin (ESRD) 20,000 UNITS/ML SC SCH ×2 (16:00→18:40)
--- NOTE | 2018-01-08 16:03 | PDOC.PN ---
- Subjective Encounter Start Date: 01/08/18 Encounter Start Time: 16:00 Subjective: f/u for acute hypoxic resp failure s/p extubation this am. Remains restless -: and confused per nursing. Hypoxic off O2 per nursing. - Objective Vital Signs & Weight: Vital Signs (12 hours) Temp Pulse Pulse Pulse Resp BP BP 01/08/18 12:29 81 171/101 H 01/08/18 12:00 97.9 F 01/08/18 09:24 81 170/97 H 01/08/18 09:17 78 78 194/103 H 01/08/18 08:00 97.8 F 77 13 01/08/18 06:25 81 170/97 H 01/08/18 06:00 10 L BP Pulse Ox Pulse Ox Pulse Ox 01/08/18 12:29 01/08/18 12:00 96 01/08/18 09:24 01/08/18 09:17 198/109 H 96 95 01/08/18 08:00 96 01/08/18 06:25 01/08/18 06:00 Weight Admit Weight 139 lb Weight 121 lb 4.068 oz Most Recent Monitor Data Heart Rate from ECG 74 NIBP 164/97 NIBP BP-Mean 131 Respiration from ECG 16 SpO2 96 I&O: 01/07/18 01/08/18 01/09/18 06:59 06:59 06:59 Intake Total 1068 1096 219 Output Total 9 23 5 Balance 1059 1073 214 Result Diagrams: 01/08/18 03:47 01/08/18 03:30 Additional Labs: Accuchecks 01/08/18 01/08/18 01/07/18 10:02 03:32 21:32 POC Glucose 360 H 434 H 329 H 01/07/18 16:17 POC Glucose 312 H Microbiology 07/14/17 11:10 Stool C. difficile GDH Antigen & Toxins - Final Laboratory Tests 07/09/17 07/10/17 07/11/17 04:42 04:27 04:39 WBC Hgb 9.1 L 8.6 L 8.4 L Potassium Creatinine Hemoglobin A1c 07/13/17 07/14/17 07/14/17 04:45 04:55 06:19 WBC Hgb Potassium 7.1 H* 6.6 H* Creatinine 2.10 H 1.78 H Hemoglobin A1c 07/14/17 07/15/17 01/04/18 17:49 04:31 03:30 WBC Hgb Potassium 5.3 H 3.4 L Creatinine 1.89 H 2.73 H Hemoglobin A1c 9.6 H 01/04/18 01/05/18 01/05/18 03:30 04:45 04:45 WBC Hgb 10.0 L 8.4 L Potassium 3.7 Creatinine 2.47 H Hemoglobin A1c 01/06/18 01/07/18 01/07/18 04:40 03:48 03:48 WBC 8.1 Hgb 10.3 L Potassium Creatinine 2.22 H 3.04 H Hemoglobin A1c Radiology Reviewed by me: Yes (PCXR - no acute process) EKG Reviewed by me: Yes (Tele - SR) Phys Exam - Physical Examination lethargic but opens eyes briefly, mumbles a few words and squirms in bed HEENT: oral pharynx no lesions Neck: no JVD, supple Respiratory: no wheezing, clear to auscultation bilateral Cardiovascular: RRR Gastrointestinal: soft, non-tender, no distention, positive bowel sounds Musculoskeletal: no edema, pulses present Neurological: moves all 4 limbs lethargic when not engaged Skin: normal turgor, cap refill <2 seconds Dx/Plan (1) Acute respiratory failure with hypoxia Code(s): J96.01 - ACUTE RESPIRATORY FAILURE WITH HYPOXIA Status: Resolved Comment: Extubated 01/08/18 and currently O2 via NC, continue supportive mgmt and monitor for worsening hypoxia (2) Cardiac arrest Code(s): I46.9 - CARDIAC ARREST, CAUSE UNSPECIFIED Status: Acute Comment: s/ p ACLS and cardioversion, stable currently (3) Hypotension, iatrogenic Code(s): I95.89 - OTHER HYPOTENSION Status: Acute Comment: Iatrogenic, resolved (4) Encephalopathy acute Code(s): G93.40 - ENCEPHALOPATHY, UNSPECIFIED Status: Acute Comment: Multifactorial, persists (5) ESRD (end stage renal disease) on dialysis Code(s): N18.6 - END STAGE RENAL DISEASE; Z99.2 - DEPENDENCE ON RENAL DIALYSIS Status: Chronic Comment: HD per [facility] (6) 3-vessel CAD Status: Acute Comment: Continue med mgmt, Cardiology assistance appreciated (7) Acute exacerbation of CHF (congestive heart failure) Code(s): I50.9 - HEART FAILURE, UNSPECIFIED Status: Acute Qualifiers: Qualified Code(s): I50.43 - Acute on chronic combined systolic (congestive) and diastolic (congestive) heart failure Comment: Resolving, serial HD tolerated (8) Chronic anemia Code(s): D64.9 - ANEMIA, UNSPECIFIED Status: Chronic Comment: Secondary to CKD, stable currently - Plan yu catheter, PT/OT, aids social worker, respiratory therapy, DVT proph w/SCDs Stable overall -: Continue to monitor for resp decompensation -: Continue HD per [facility] -: Avoid sedating medications -: OOB/Up to chair * AM lab: BMP, CBC * Add Hydralazine 25mg BID
[2018-01-08] MEDS: hydrALAZINE 25 MG TAB PO SCH (21:29)
[2018-01-08] MEDS: Atorvastatin Calcium 40 MG TAB PO SCH (21:30)
[2018-01-09 04:47] LABS: Anion Gap 11 mmol/L (10-20); BUN (Urea Nitrogen) 58 mg/dL (7.0-18.7); Calc. Creatinine Clearance 21 mL/min (70-130); Calcium 8.7 mg/dL (7.8-10.44); Carbon Dioxide 29 mmol/L (22-29); Chloride 103 mmol/L (98-107); Estimated GFR-MDRD 20; Glucose 182 mg/dL (70-105); Potassium 3.3 mmol/L (3.5-5.1); Sodium 140 mmol/L (136-145)
[2018-01-09 05:33] LABS: Anisocytosis SLIGHT = 6-15 cells (100X) (0-5/hpf); Band 3 % (5-11); Hemoglobin 10.1 g/dL (12.0-16.0); Hypochromia SLIGHT = 6-15 cells (100X) (0-5/hpf); Lymphocytes 15 % (21-51); MDiff Complete? YES; Mean Corpuscular HGB CONC 31.2 g/dL (32.0-36.0); Mean Corpuscular Hemoglobin 28.8 pg (27.0-31.0); Mean Corpuscular Volume 92.4 fl (81.0-99.0); Mean Platelet Volume 8.5 fL (7.4-10.4); Monocytes 7 % (0-10); Neutrophil 75 % (42-75); PLT Morphology Comment Appears Adequate; Platelet Count 385 thou/uL (130-400); RBC Distribution Width 16.6 % (11.5-14.5); Red Blood Cell (RBC) Count 3.51 mill/uL (4.20-5.40); White Blood Cell (WBC) Count 13.7 thou/uL (4.8-10.8)
--- NOTE | 2018-01-09 08:11 | PRG ---
DATE OF SERVICE: 01/09/2018 SUBJECTIVE: The patient is arousable. She can answer some simple questions. She is tied down becau se she still appears to be encephalopathic. PHYSICAL EXAMINATION: VITAL SIGNS: Temperature 97.7 with no fever overnight, pulse 72, blood pressure 160/95, 24-hour inta ke 459, output 103. HEENT: Pupils react. Sclerae are anicteric. Oropharynx clear. NECK: No JVD. CHEST: Clear to auscultation. CARDIOVASCULAR: S1, S2 regular, without murmur. ABDOMEN: Soft, nontender. EXTREMITIES: No clubbing, cyanosis, or edema. LABORATORY DATA: White blood count 13.7, hemoglobin 10, hematocrit 32.5, platelet count 385. Sodium 140, potassium 3.3, chloride 103, CO2 is 29, BUN 58, creatinine 3.2, glucose 182. ASSESSMENT: 1. Status post cardiopulmonary arrest, which was secondary to post-dialysis hypotension. 2. Anoxic encephalopathy which appears to be improving slowly. 3. Diabetes mellitus. 4. End-stage renal disease requiring hemodialysis. 5. Status post acute respiratory failure. PLAN: Continuing supportive care. She is probably not neurologically improved enough for transfer t o the floor yet. Her steroids were stopped yesterday. Her blood sugar seems to be under better cont rol. We need to get a speech evaluation and to get her up into a chair and see how she does.
[2018-01-09] MEDS: Losartan 25 MG TAB PO SCH (08:27)
[2018-01-09] MEDS: Aspirin 81 mg Enteric Coated Tablet PO SCH (08:28)
[2018-01-09] MEDS: levETIRAcetam 500 MG TAB PO SCH ×2 (08:28→20:48)
[2018-01-09] MEDS: Famotidine 20 MG TAB PO SCH (08:29)
[2018-01-09] MEDS: hydrALAZINE 25 MG TAB PO SCH ×2 (08:29→20:48)
[2018-01-09] MEDS: Ferrous Sulfate 325 MG TAB PO SCH (08:29)
[2018-01-09] MEDS: Metoprolol Tartrate 25 MG TAB PO SCH ×2 (08:29→20:48)
--- NOTE | 2018-01-09 08:29 | PRG ---
DATE OF SERVICE: 01/09/2018 SUBJECTIVE: Ms. Gimenez is awake and moving extremities. OBJECTIVE: VITAL SIGNS: Her blood pressure was high now 190/90, pulse 70. LUNGS: Clear. CARDIAC: Normal S1, S2. ABDOMEN: Soft, nontender. EXTREMITIES: No edema. ASSESSMENT: 1. Hypertension. 2. Status post arrest. 3. Previous bypass surgery. 4. Paroxysmal atrial fibrillation. PLAN: We will adjust blood pressure medicine. We will discuss with the nurse about if the patient i s able to take oral medicine. If so, probably just increase her current medicine.
[2018-01-09] MEDS: Dorzolamide HCl 2% Ophth Soln 10 ml Bottle EA EYE SCH ×2 (08:30→20:47)
--- NOTE | 2018-01-09 11:09 | RAD ---
PORTABLE CHEST 1 VIEW: Date: 01/09/18 Time: 0538 hours HISTORY: Respiratory failure. FINDINGS: Comparison made with exam from previous day. There has been interval removal of the endotracheal and nasogastric tubes. Changes of median sternoto my are again seen. Right-sided dialysis catheter remains in place. The heart size is normal. No confl uent areas of consolidation, pneumothorax, or pleural effusions are seen. IMPRESSION: No acute process. POS: [facility]
--- NOTE | 2018-01-09 11:32 | PRG ---
DATE OF SERVICE: 01/09/2018 SUBJECTIVE: Ms. Gimenez is a 37-year-old black female with ESRD and currently on maintenance hemodial ysis. Currently, she is on dialysis. We will attempt 2-3 liters of fluid removal as tolerated. No other acute events last night. OBJECTIVE: VITAL SIGNS: Blood pressure is 162/111, heart rate 73, respiratory rate 19 and pulse ox 100%. GENERAL: The patient is sleepy, but arousable. Not following commands at the present time. SKIN: Adequate turgor. HEENT: She has slightly pale conjunctivae, anicteric sclerae. NECK: No neck mass, no carotid bruits, no JVD. CHEST: No deformities. LUNGS: Decreased breath sounds. No wheezing, no crackles. HEART: Normal sinus rhythm. No murmur, no gallops, no rubs. ABDOMEN: Globular, soft and nontender. No masses. EXTREMITIES: No edema, no deformities. MEDICATIONS: Medications of 01/09/2018 was reviewed. LABORATORY DATA: Laboratories of 01/09/2018; white count 13.7 and hemoglobin 10.1. Sodium 140, pota ssium 3.3, chloride 103, carbon dioxide 29, BUN 58, creatinine 3.25, glucose 182 and calcium 8.7. ASSESSMENT AND PLAN: 1. End-stage renal disease, continuing Thursday, , and Thursday hemodialysis. We will dialyz e for 3-1/2 hours. We will adjust potassium bath due to the potassium 3.3. I will be using a 4.0 po tassium bath. No heparin use. We will attempt 2-3 liters of fluid removal as tolerated. 2. Hypertension, max. We will attempt 2-3 days for fluid removal, hopefully this will help with the blood pressure. 3. Anemia. Continue weekly Epogen. 4. Status post cardiorespiratory arrest - patient still groggy. She may have some degree of hypoxic encephalopathy, which she is slowly recovering from. Overall, prognosis remains guarded. We will b e rechecking a basic met and CBC in a.m.
[2018-01-09] MEDS ORDERED: Heparin 10,000 UNITS/ 10 ML VIAL ONE (13:55)
--- NOTE | 2018-01-09 16:57 | PDOC.PN ---
- Subjective Encounter Start Date: 01/09/18 Encounter Start Time: 16:25 Subjective: f/u s/p resp failure and extubated in last 24-48h. Remains lethargic and -: confused per nursing. Sleeps most of the time. HD session completed -: today. - Objective MAR Reviewed: Yes Vital Signs & Weight: Vital Signs (12 hours) Temp Pulse Resp Pulse Ox 01/09/18 14:00 98.1 F 01/09/18 12:00 97.8 F 01/09/18 11:00 97.2 F L 01/09/18 09:00 95.1 F L 01/09/18 08:29 75 01/09/18 08:00 97.2 F L 71 16 98 01/09/18 07:00 94 L Weight Admit Weight 139 lb Weight 114 lb 10.246 oz Most Recent Monitor Data Heart Rate from ECG 81 NIBP 138/85 NIBP BP-Mean 98 Respiration from ECG 14 SpO2 100 I&O: 01/08/18 01/09/18 01/10/18 06:59 06:59 06:59 Intake Total 1096 459 Output Total 23 103 35 Balance 1073 356 -35 Result Diagrams: 01/09/18 04:27 01/09/18 04:27 Additional Labs: Accuchecks 01/09/18 01/09/18 01/08/18 11:20 04:13 21:08 POC Glucose 195 H 157 H 207 H Radiology Reviewed by me: Yes (PCXR - no acute process) EKG Reviewed by me: Yes (Tele - SR) Phys Exam - Physical Examination lethargic, opens eyes briefly to name then falls asleep HEENT: oral pharynx no lesions Neck: no JVD, supple Respiratory: no wheezing, clear to auscultation bilateral Cardiovascular: RRR Gastrointestinal: soft, non-tender, no distention, positive bowel sounds Musculoskeletal: no edema, pulses present Neurological: moves all 4 limbs Skin: normal turgor, cap refill <2 seconds Dx/Plan (1) Encephalopathy acute Code(s): G93.40 - ENCEPHALOPATHY, UNSPECIFIED Status: Acute Comment: Multifactorial, persistent, CT brain today, consult Neurology, suspected hypoxic /anoxic encephalopathy (2) Acute respiratory failure with hypoxia Code(s): J96.01 - ACUTE RESPIRATORY FAILURE WITH HYPOXIA Status: Resolved Comment: Extubated 01/08/18 and currently O2 via NC, continue supportive mgmt and monitor for worsening hypoxia (3) Cardiac arrest Code(s): I46.9 - CARDIAC ARREST, CAUSE UNSPECIFIED Status: Acute Comment: s/ p ACLS and cardioversion, stable currently (4) Hypotension, iatrogenic Code(s): I95.89 - OTHER HYPOTENSION Status: Acute Comment: Iatrogenic, resolved (5) ESRD (end stage renal disease) on dialysis Code(s): N18.6 - END STAGE RENAL DISEASE; Z99.2 - DEPENDENCE ON RENAL DIALYSIS Status: Chronic Comment: HD per [facility] service (6) 3-vessel CAD Status: Acute Comment: Continue med mgmt, Cardiology assistance appreciated (7) Acute exacerbation of CHF (congestive heart failure) Code(s): I50.9 - HEART FAILURE, UNSPECIFIED Status: Acute Qualifiers: Qualified Code(s): I50.43 - Acute on chronic combined systolic (congestive) and diastolic (congestive) heart failure Comment: Resolving, serial HD tolerated (8) Chronic anemia Code(s): D64.9 - ANEMIA, UNSPECIFIED Status: Chronic Comment: Secondary to CKD, stable currently - Plan yu catheter, PT/OT, social media content manager, speech therapy, respiratory therapy, DVT proph w/SCDs CT brain today secondary to persistent encephalopathy -: HD per [facility] -: Continue BP regimen -: OOB/Neuro chair -: AM lab: BMP, CBC * .
--- NOTE | 2018-01-09 17:47 | CT ---
CT HEAD WITHOUT CONTRAST: 01/09/18 Multiple axial tomograms obtained through the head without IV enhancement. HISTORY: Encephalopathy. Change in mental status. No comparison. Ventricles are mildly prominent. No mass or hemorrhage identified. No evidence of infarct. Mild mucosal edema in the paranasal sinuses. IMPRESSION: Mild ventriculomegaly. Recommend neurologic consultation. Consider elective followup MRI of brain to further evaluate. POS: [facility]
[2018-01-09] MEDS: Atorvastatin Calcium 40 MG TAB PO SCH (20:47)
[2018-01-10 05:18] LABS: Anion Gap 6 mmol/L (10-20); BUN (Urea Nitrogen) 26 mg/dL (7.0-18.7); Calc. Creatinine Clearance 30 mL/min (70-130); Calcium 8.4 mg/dL (7.8-10.44); Carbon Dioxide 35 mmol/L (22-29); Chloride 102 mmol/L (98-107); Estimated GFR-MDRD 31; Glucose 128 mg/dL (70-105); Potassium 3.8 mmol/L (3.5-5.1); Sodium 139 mmol/L (136-145)
[2018-01-10 05:19] LABS: Band 2 % (5-11); Hypochromia SLIGHT = 6-15 cells (100X) (0-5/hpf); Lymphocytes 11 % (21-51); MDiff Complete? YES; Mean Corpuscular HGB CONC 31.8 g/dL (32.0-36.0); Mean Corpuscular Hemoglobin 29.2 pg (27.0-31.0); Mean Corpuscular Volume 91.8 fl (81.0-99.0); Mean Platelet Volume 7.8 fL (7.4-10.4); Monocytes 3 % (0-10); Neutrophil 84 % (42-75); PLT Morphology Comment Appears Adequate; Platelet Count 379 thou/uL (130-400); RBC Distribution Width 16.4 % (11.5-14.5); Red Blood Cell (RBC) Count 3.41 mill/uL (4.20-5.40); White Blood Cell (WBC) Count 9.6 thou/uL (4.8-10.8)
--- NOTE | 2018-01-10 08:46 | RAD ---
PORTABLE CHEST 1 VIEW: Date: 01/10/18 Time: 0500 hours HISTORY: Respiratory distress. FINDINGS: Comparison made with exam from previous day. Changes of median sternotomy are again seen. Right-sided dialysis catheter remains in place. The hear t size is normal. No confluent areas of consolidation, pneumothoraces, or pleural effusions are noted . IMPRESSION: No acute process. POS: [facility]
[2018-01-10] MEDS: Aspirin 81 mg Enteric Coated Tablet PO SCH (09:07)
[2018-01-10] MEDS: hydrALAZINE 25 MG TAB PO SCH ×2 (09:07→21:56)
[2018-01-10] MEDS: levETIRAcetam 500 MG TAB PO SCH ×2 (09:07→21:56)
[2018-01-10] MEDS: Losartan 25 MG TAB PO SCH (09:07)
[2018-01-10] MEDS: Dorzolamide HCl 2% Ophth Soln 10 ml Bottle EA EYE SCH ×2 (09:07→21:57)
[2018-01-10] MEDS: Famotidine 20 MG TAB PO SCH (09:08)
[2018-01-10] MEDS: Ferrous Sulfate 325 MG TAB PO SCH (09:08)
[2018-01-10] MEDS: Metoprolol Tartrate 25 MG TAB PO SCH ×2 (09:08→21:56)
--- NOTE | 2018-01-10 10:08 | PRG ---
DATE OF SERVICE: 01/10/2018 SUBJECTIVE: Ms. Gimenez is more awake and alert today, taking her medicines well. PHYSICAL EXAMINATION: VITAL SIGNS: Her blood pressure is improved 139/88 and pulse 70. LUNGS: Clear. CARDIAC: Normal S1, normal S2. ABDOMEN: Soft, nontender. EXTREMITIES: There is no edema. ASSESSMENT: 1. Status post arrest. 2. Hypertension, improved. 3. Previous bypass. 4. Paroxysmal atrial fibrillation, maintaining sinus rhythm. PLAN: Continue current medical regimen. No changes at this time.
--- NOTE | 2018-01-10 10:31 | CON ---
DATE OF CONSULTATION: 01/10/2018 CONSULTING PHYSICIAN: Hospitalist Service. IMPRESSION: Mild encephalopathy likely secondary to a combination of factors including severe hypert ension and renal insufficiency, she reportedly is improving. PLAN: 1. Further lab work is ordered. 2. Monitor clinical course. Ms. Gimenez is a 37-year-old white female with past history of hypertension, renal failure, coronary a rtery disease, diabetes, glaucoma, anemia and blindness of the right eye, who became unresponsive on her way to dialysis. Her blood sugar was in normal range. She was quite hypertensive with diastolic s around 120. She was admitted for further evaluation. She had a CT scan of the brain done, which s howed some ventricular prominence, but no intraaxial abnormalities. She has been afebrile since admi ssion, dialysis was restarted. She has reportedly been relatively lethargic and talks very slowly wh en the nurses have tried to assess her. She has not had any seizure activity or other abnormal behav ior. The patient is without any complaints of headache, nausea, dizziness, chest pain, shortness of breath. She does report being hungry. ALLERGIES: REGLAN. PHYSICAL EXAMINATION: GENERAL: She is a thin black female lying in bed, in no acute distress. VITAL SIGNS: Stable. She is afebrile. NEUROLOGIC: She awoke easily and answer questions appropriately. She followed commands. She had no asterixis or tremor. I did not note any focal deficits. IMAGING: CT was reviewed. SUMMARY: This is a young woman with multiple medical problems, who has been a bit lethargic, does no t seem to be anything remarkable on exam. CAT scan is unremarkable as well from standpoint of any st ructural anomalies that would account for her lethargy. Follow up on her lab work and make further r ecommendations.
--- NOTE | 2018-01-10 11:15 | PRG ---
DATE OF SERVICE: 01/10/2018 SUBJECTIVE: The patient is still somnolent. Most of the time I could get her to arouse very easily and she answers questions for me and she was appropriate. She said her throat was sore from the endo tracheal tube being down previously. OBJECTIVE: VITAL SIGNS: Temperature is 97.5, pulse 80, blood pressure 176/107, 24-hour intake 459, output 2000 by dialysis. HEENT: Pupils react. Sclerae are anicteric. Oropharynx is clear. NECK: No JVD. LUNGS: She has coarse breath sounds, especially up in the neck region. CARDIAC: S1 and S2 regular. ABDOMEN: Soft and nontender. EXTREMITIES: No edema. LABORATORY DATA: White blood cell count 9.6, hematocrit 31.3, platelet count 379. Sodium 139, potas sium 3.8, chloride 102, CO2 of 35, BUN 26, creatinine 2.1, glucose 128. IMAGING: X-ray shows no acute mass, effusion or infiltrate. ASSESSMENT: 1. Status post respiratory failure, requiring mechanical ventilation. 2. Encephalopathy, which seems to be slowly improving. 3. Diabetes mellitus. 4. End-stage renal disease, requiring hemodialysis. PLAN: Up in a chair as tolerated. Continue speech therapy assessment. I have reviewed the orders i n the chart and agree with current management. From my standpoint, she can probably be transferred o me to telemetry unit.
--- NOTE | 2018-01-10 16:49 | PRG ---
DATE OF SERVICE: 01/10/2018 SUBJECTIVE: Ms. Gimenez is a 37-year-old black female with known history of ESRD. Patient has been e xtubated. Her mentation is still somewhat decreased, but she can follow simple commands. She has been evaluated by Neurology. The feeling for decreased mentation is that she may have had me tabolic encephalopathy. No acute events noted. Cardiology is also following this patient for paroxy smal atrial fibrillation and currently is noted to be in sinus rhythm, no new complaints today. She did receive hemodialysis yesterday and we were able to pullout several liters of fluid. PHYSICAL EXAMINATION: VITAL SIGNS: Blood pressure is noted at 83/46, ranging to 123/73, heart rate 78, respiratory rate is 12, pulse ox is 92%. GENERAL: Sleepy, but arousable. Can follows simple commands. SKIN: Adequate turgor. HEENT: Slightly pale conjunctivae, anicteric sclerae. NECK: No neck mass, no carotid bruits. No JVD. CHEST: No deformities. LUNGS: Clear breath sounds. No wheezing, no crackles. HEART: Normal sinus rhythm. No murmur, no gallops, no rubs. ABDOMEN: Globular, soft, nontender, no masses. EXTREMITIES: No edema, no deformities. MEDICATIONS: Medications of 01/10/2018 was reviewed. LABORATORY DATA: Laboratories of 01/10/2018 showed white count of 9.6, hemoglobin is 10. Sodium 139 , potassium 3.8, chloride 102, carbon dioxide 35, BUN 26, creatinine 2.17, glucose 128, calcium 8.4. ASSESSMENT AND PLAN: 1. End-stage renal disease, stable. Continuing current 3 times a week hemodialysis. Fluid removal as tolerated. Due to the decreased blood flow of the dialysis catheter, dialysis nurses were instruc nick to place Activase one day prior to the said dialysis. Her next dialysis will be on Thursday. So far she is tolerating current dialysis regimen. 2. Hypertension - on the lower side today. Continue to observe. 3. Metabolic encephalopathy. Continue supportive care. CAT scan of the brain was essentially negat vickey.
--- NOTE | 2018-01-10 17:24 | PDOC.PN ---
- Subjective Encounter Start Date: 01/10/18 Encounter Start Time: 17:00 Subjective: f/u for encephalopathy, s/p hypoxic resp failure and ESRD on HD. -: Nsg states pt remains lethargic, minimally verbal and sleeps most of -: the day. CT brain neg. - Objective MAR Reviewed: Yes Vital Signs & Weight: Vital Signs (12 hours) Temp Pulse Resp BP Pulse Ox 01/10/18 16:00 97.9 F 01/10/18 12:00 97.7 F 01/10/18 09:07 75 125/81 01/10/18 09:00 97.5 F L 01/10/18 08:00 97.5 F L 75 12 99 01/10/18 07:51 100 01/10/18 07:00 97.5 F L Weight Admit Weight 139 lb Weight 115 lb 8.356 oz Most Recent Monitor Data Heart Rate from ECG 82 NIBP 135/80 NIBP BP-Mean 96 Respiration from ECG 3 SpO2 99 I&O: 01/09/18 01/10/18 01/11/18 06:59 06:59 06:59 Intake Total 459 0 Output Total 103 90 65 Balance 356 -90 -65 Result Diagrams: 01/10/18 04:50 01/10/18 04:50 Additional Labs: Accuchecks 01/10/18 01/10/18 01/09/18 10:28 04:39 20:44 POC Glucose 130 H 120 H 123 H 01/09/18 17:02 POC Glucose 126 H Radiology Reviewed by me: Yes (CT brain - no acute process) EKG Reviewed by me: Yes (Tele - SR) Phys Exam - Physical Examination lethargic, minimally responds to questions HEENT: oral pharynx no lesions Neck: no JVD, supple Respiratory: no wheezing, clear to auscultation bilateral Cardiovascular: RRR Gastrointestinal: soft, non-tender, no distention, positive bowel sounds Musculoskeletal: no edema, pulses present Neurological: normal sensation, moves all 4 limbs Skin: normal turgor, cap refill <2 seconds Dx/Plan (1) Encephalopathy acute Code(s): G93.40 - ENCEPHALOPATHY, UNSPECIFIED Status: Acute Comment: Multifactorial, persistent, CT brain negative, appreciate Neurology assistance, suspected hypoxic/anoxic encephalopathy (2) Acute respiratory failure with hypoxia Code(s): J96.01 - ACUTE RESPIRATORY FAILURE WITH HYPOXIA Status: Acute Comment: Extubated 01/08/18 and currently O2 via NC, continue supportive mgmt and monitor for worsening hypoxia, resolved (3) Cardiac arrest Code(s): I46.9 - CARDIAC ARREST, CAUSE UNSPECIFIED Status: Acute Comment: s/ p ACLS and cardioversion, stable currently (4) Hypotension, iatrogenic Code(s): I95.89 - OTHER HYPOTENSION Status: Acute Comment: Iatrogenic, resolved (5) ESRD (end stage renal disease) on dialysis Code(s): N18.6 - END STAGE RENAL DISEASE; Z99.2 - DEPENDENCE ON RENAL DIALYSIS Status: Chronic Comment: HD per Renal service (6) 3-vessel CAD Status: Acute Comment: Continue med mgmt, Cardiology assistance appreciated (7) Acute exacerbation of CHF (congestive heart failure) Code(s): I50.9 - HEART FAILURE, UNSPECIFIED Status: Acute Qualifiers: Qualified Code(s): I50.43 - Acute on chronic combined systolic (congestive) and diastolic (congestive) heart failure Comment: Resolving, serial HD tolerated (8) Chronic anemia Code(s): D64.9 - ANEMIA, UNSPECIFIED Status: Chronic Comment: Secondary to CKD, stable currently - Plan PT/OT, social media marketing analyst, respiratory therapy, DVT proph w/SCDs Stable overall -: Supportive mgmt -: Continue HD per Renal service -: OOB/chair with PT -: Transfer to Tele * AM lab: BMP
[2018-01-10] MEDS: Atorvastatin Calcium 40 MG TAB PO SCH (21:56)
[2018-01-11 05:40] LABS: Anion Gap 13 mmol/L (10-20); BUN (Urea Nitrogen) 33 mg/dL (7.0-18.7); Calc. Creatinine Clearance 22 mL/min (70-130); Calcium 8.6 mg/dL (7.8-10.44); Carbon Dioxide 29 mmol/L (22-29); Chloride 102 mmol/L (98-107); Estimated GFR-MDRD 21; Glucose 110 mg/dL (70-105); Potassium 4.1 mmol/L (3.5-5.1); Sodium 140 mmol/L (136-145)
[2018-01-11] MEDS: Dorzolamide HCl 2% Ophth Soln 10 ml Bottle EA EYE SCH ×2 (09:00→21:02)
[2018-01-11] MEDS: Ferrous Sulfate 325 MG TAB PO SCH (09:00)
[2018-01-11] MEDS: hydrALAZINE 25 MG TAB PO SCH ×2 (09:01→21:01)
[2018-01-11] MEDS: levETIRAcetam 500 MG TAB PO SCH ×2 (09:01→21:01)
[2018-01-11] MEDS: Losartan 25 MG TAB PO SCH (09:01)
[2018-01-11] MEDS: Famotidine 20 MG TAB PO SCH (09:02)
[2018-01-11] MEDS: Aspirin 81 mg Enteric Coated Tablet PO SCH (09:02)
[2018-01-11] MEDS: Metoprolol Tartrate 25 MG TAB PO SCH ×2 (09:02→21:02)
--- NOTE | 2018-01-11 09:44 | PRG ---
DATE OF SERVICE: 01/11/2018 SUBJECTIVE: Ms. Gimenez is a 37-year-old black female with ESRD, status post cardiorespiratory failur e, hypoxic encephalopathy and being followed by the Renal Service. No acute events noted last night. She still feels lethargic. However, she is responding to verbal commands. OBJECTIVE: VITAL SIGNS: Blood pressure is 154/104, heart rate is 83, pulse ox 100%. GENERAL: Awake sleepy, but arousable and comfortable. SKIN: Adequate turgor. HEENT: Pinkish conjunctivae. Anicteric sclerae. NECK: No neck mass, no carotid bruits, no JVD. CHEST: No deformities. LUNGS: Clear breath sounds. No wheezing, no crackles. HEART: Normal sinus rhythm. No murmur, no gallops, no rubs. ABDOMEN: Globular, soft, nontender, no masses. EXTREMITIES: No edema. MEDICATIONS: 01/11/2018 - Reviewed. LABORATORY: 01/10/2018 - White count 9.6, hemoglobin 10. 01/11/2018 - Sodium 140, potassium 4.1, chloride 102, carbon dioxide 29, BUN 33, creatinine 3.04, alicia cium 8.6. Cortisol 13.5, thyroxine 7. ASSESSMENT AND PLAN: 1. Generalized malaise/lethargy - continue to observe. Neurology has evaluated this patient. She m ay have a simple underlying metabolic encephalopathy. Please note she is also status post cardioresp iratory arrest and for that reason we could not completely rule out a transient hypoxic encephalopath y with her during that initial arrest. 2. End-stage renal disease, stable. We will continue current hemodialysis regimen. The patient is due for dialysis in a.m. Again, fluid removal only as tolerated by the patient. 3. Anemia, currently on weekly Epogen. 4. Labile hypertension. Continue to observe on blood pressure meds. Adjust blood pressure medicati ons as needed with this patient. Overall, prognosis remains guarded.
--- NOTE | 2018-01-11 11:44 | PRG ---
DATE OF SERVICE: 01/06/2018 Ms. Gimenez continues to awaken, but is still too somnolent to extubate. She has not had any fever. PHYSICAL EXAMINATION: VITAL SIGNS: Blood pressure 145/82, respiratory rate was 12, heart rate 80. She is being dialyzed. Intake and output was positive 1129, showing a 65 mL of urine output. LUNGS: Her lungs are clear anteriorly. CARDIOVASCULAR: Regular rhythm. ABDOMEN: Soft. EXTREMITIES: Without edema. Chest radiograph shows bilateral infiltrates suggestive of pulmonary edema. LABORATORY DATA: White count 7.6, hemoglobin 8.8, platelets 294,000. Sodium 141, potassium 3.1, chloride 102, bicarb 29, BUN 26, creatinine 2.22. IMPRESSION: 1. Status post cardiorespiratory arrest ? secondary to post-dialysis hypotension. 2. Hypoperfusion brain injury that is improving. 3. End-stage renal disease on dialysis. 4. Respiratory failure on mechanical ventilation. She needs to be more alert before we extubated her. When her cuff is deflated she has no leak as well, so she may end up needing steroids to hopefully facilitate decreasing vocal cord edema if this is present. It may simply be that her body habitus is leading to a lack of a leak. We will continue to follow. Hopefully, she will be weanable by the end of the week. Prognosis remains quite guarded, given the stormy she has had with multiple physicians trying to manage her care in this hospitalization. Critical care time 30 min. ROBERT
[2018-01-11 15:40] LABS: Actual Bicarbonate (HCO3a) 27.5 mEq/L (22-26); Base Excess (BEa) 2.7 mEq/L (0 (+/-) 2.5); CO2 Tension 43.7 mmHg (35.0-45.0); Hematocrit-ABG 31.3 % (36.0-47.0); Hemoglobin (Hb) 9.5 g/dL (12.0-16.0); O2 Tension (PaO2) 59.6 mmHg (80.0-100.0); pH, Arterial 7.42 (7.35-7.45)
[2018-01-11 15:41] LABS: ALV-art Gradient 99.675 (0-20); Calcium, Ionized 1.2 mmol/L (1.12-1.30); Puncture Site RRA
--- NOTE | 2018-01-11 16:17 | RAD ---
AP CHEST: History: Status post intubation. Respiratory distress. Date: 01-11-18 Comparison: 01-10-18 FINDINGS: Sternotomy wires are seen. There is a right jugular dialysis catheter in place. Patient has been intu bated. Endotracheal tube is in good position. There is a nasogastric tube, distal tip not visualized. The lungs are well aerated. No evidence of acute intrathoracic abnormality is seen. IMPRESSION: Unremarkable AP chest. POS: CET
--- NOTE | 2018-01-11 16:35 | PRG ---
DATE OF SERVICE: 01/11/2018 SUBJECTIVE: Ammy was evaluated earlier. She has not returned to her normal baseline mental status, but was protecting her airway, was wiggling around in bed, able to follow commands, moving all extremities. PHYSICAL EXAMINATION: VITAL SIGNS: Heart rate was in the 70s, blood pressure was in the 150s, respiratory rate was in the teens. LUNGS: Clear. HEART: Regular rhythm. S1 and S2 are normal. At approximately 2 p.m., she dropped her pressure to 41/23, became unresponsive. She was placed in Trendelenburg and begun with bag mask ventilation immediately. Blood pressure came up into the 60s. She subsequently was intubated by me with bronchoscope. She is Ambu bagged; at that point, her blood pressure last check is 145/98 with heart rate in the 70s. I suspect this is the same thing that led to her rest up on the medical floor. I would wonder if she does not have coronary lesion leading to these events. We will plan to discuss with Cardiology. CRITICAL CARE TIME: 40 minutes excluding procedure. ROBERT
[2018-01-11] MEDS ORDERED: Nitroglycerin 2% Ointment 1 INCH/1 GM Packet TOP SCH (16:45)
[2018-01-11] MEDS: hydrALAZINE 20 MG/ML VIAL SLOW IVP PRN (17:31)
--- NOTE | 2018-01-11 19:22 | PDOC.PN ---
- Subjective Encounter Start Date: 01/11/18 Encounter Start Time: 17:00 Subjective: f/u for ESRD, encephalopathy and recurrent resp failure. Apparently became -: less responsive, hypotensive this afternoon leading to re-intubation. -: Same episode previously noted. - Objective MAR Reviewed: Yes Vital Signs & Weight: Vital Signs (12 hours) Temp Pulse Resp BP Pulse Ox 01/11/18 18:08 78 180/100 H 01/11/18 18:00 14 01/11/18 17:31 81 182/98 H 01/11/18 16:00 97.6 F 14 01/11/18 14:30 77 01/11/18 14:15 14 01/11/18 09:01 83 154/104 H 01/11/18 08:00 98.4 F 83 14 99 Weight Admit Weight 139 lb Weight 116 lb 6.465 oz Most Recent Monitor Data Heart Rate from ECG 78 NIBP 180/100 NIBP BP-Mean 118 Respiration from ECG 5 SpO2 93 I&O: 01/10/18 01/11/18 01/12/18 06:59 06:59 06:59 Intake Total 120 0 Output Total 90 95 30 Balance -90 25 -30 Result Diagrams: 01/10/18 04:50 01/11/18 05:00 Additional Labs: Accuchecks 01/11/18 01/11/18 01/10/18 15:26 04:51 22:07 POC Glucose 132 H 109 126 H Radiology Reviewed by me: Yes (PCXR - ETT in position, no acute infiltrates) EKG Reviewed by me: Yes (Tele - SR) Phys Exam - Physical Examination [facility] E[facility] in place HEENT: oral pharynx no lesions Neck: no JVD, supple Respiratory: no wheezing, clear to auscultation bilateral Cardiovascular: RRR Gastrointestinal: soft, non-tender, no distention, positive bowel sounds Musculoskeletal: no edema, pulses present sedate on mech vent Skin: normal turgor, cap refill <2 seconds Dx/Plan (1) Acute respiratory failure with hypoxia Code(s): J96.01 - ACUTE RESPIRATORY FAILURE WITH HYPOXIA Status: Acute Comment: Extubated 01/08/18 now re-intubated 01/11/18, continue supportive mgmt, ? etiology of recurrent resp failure (2) Encephalopathy acute Code(s): G93.40 - ENCEPHALOPATHY, UNSPECIFIED Status: Acute Comment: Multifactorial, persistent, CT brain negative, appreciate Neurology assistance, suspected hypoxic/anoxic encephalopathy, ? contributor to recurrent resp failure (3) Cardiac arrest Code(s): I46.9 - CARDIAC ARREST, CAUSE UNSPECIFIED Status: Acute Comment: s/ p ACLS and cardioversion, stable currently, no ACS noted currently (4) Hypotension, iatrogenic Code(s): I95.89 - OTHER HYPOTENSION Status: Acute Comment: Recurrent episode and associated resp failure requiring intubation, BP improved after mech ventilation, no pressors currently (5) ESRD (end stage renal disease) on dialysis Code(s): N18.6 - END STAGE RENAL DISEASE; Z99.2 - DEPENDENCE ON RENAL DIALYSIS Status: Chronic Comment: HD per Renal service (6) 3-vessel CAD Status: Acute Comment: Continue med mgmt, Cardiology assistance appreciated (7) Acute exacerbation of CHF (congestive heart failure) Code(s): I50.9 - HEART FAILURE, UNSPECIFIED Status: Acute Qualifiers: Qualified Code(s): I50.43 - Acute on chronic combined systolic (congestive) and diastolic (congestive) heart failure Comment: Resolving, serial HD tolerated (8) Chronic anemia Code(s): D64.9 - ANEMIA, UNSPECIFIED Status: Chronic Comment: Secondary to CKD, stable currently - Plan social worker clinical, speech therapy, respiratory therapy, DVT proph w/SCDs Recurrent resp failure and hypotension of unclear etiology -: Continue mech ventilation and wean as clinically indicated -: ? ACS event vs iatrogenic -: Palliative care consult, ? Hospice -: AM lab: BMP, ABG * PCXR in am
[2018-01-11] MEDS ORDERED: Activase 2 MG VIAL CATH SCH (19:42)
[2018-01-11] MEDS ORDERED: Sterile Water 10 ML VIAL IVP SCH (19:42)
--- NOTE | 2018-01-11 19:48 | OP ---
DATE: 01/11/2018 BRONCHOSCOPY NOTE Bite block was placed in her mouth. Bronchoscope was introduced into her mouth without any sedation since she was somewhat obtunded. Vocal cords were visualized. Copious oral secretions were suctione d from around her vocal cords, and bronchoscope was introduced into trachea. Trachea was full of nathaniel yani. This was all suctioned clear. Right lower lobe, right middle lobe, right upper lobe, left lowe r lobe and left upper lobe were quickly suctioned until clear. She tolerated intubation well and the rapeutic suctioning.
[2018-01-11] MEDS ORDERED: Sterile Water 20 ML VIAL IVP SCH (20:30)
[2018-01-11] MEDS: Nitroglycerin 2% Ointment 1 INCH/1 GM Packet TOP SCH (21:01)
[2018-01-11] MEDS: Atorvastatin Calcium 40 MG TAB PO SCH (21:01)
[2018-01-12 04:34] LABS: Anion Gap 14 mmol/L (10-20); BUN (Urea Nitrogen) 40 mg/dL (7.0-18.7); Calc. Creatinine Clearance 18 mL/min (70-130); Calcium 8.7 mg/dL (7.8-10.44); Carbon Dioxide 27 mmol/L (22-29); Chloride 103 mmol/L (98-107); Estimated GFR-MDRD 17; Glucose 124 mg/dL (70-105); Potassium 3.9 mmol/L (3.5-5.1); Sodium 140 mmol/L (136-145)
[2018-01-12] MEDS: Nitroglycerin 2% Ointment 1 INCH/1 GM Packet TOP SCH ×3 (05:25→21:34)
[2018-01-12 06:58] LABS: CO2 Tension 32.3 mmHg (35.0-45.0); Hematocrit-ABG 28.3 % (36.0-47.0); O2 Tension (PaO2) 75.8 mmHg (80.0-100.0); pH, Arterial 7.51 (7.35-7.45)
[2018-01-12 06:59] LABS: Hemoglobin (Hb) 8.7 g/dL (12.0-16.0)
[2018-01-12 07:00] LABS: ALV-art Gradient 169.025 (0-20); Calcium, Ionized 1.3 mmol/L (1.12-1.30); Puncture Site RRA
--- NOTE | 2018-01-12 09:09 | PRG ---
DATE OF SERVICE: 01/12/2017 SUBJECTIVE: Events of the last 24 hours was noted. The patient was said to become unresponsive yest erday, went to acute respiratory failure and she was reintubated. Currently, she is on ventilator rodney pport. We are following her up for her maintenance hemodialysis. I have scheduled her for hemodialysis with fluid removal as tolerated with this patient. PHYSICAL EXAMINATION: VITAL SIGNS: Blood pressure 113/71, heart rate 77, respiratory rate 17, pulse ox 94%, temperature 97 .5. GENERAL: Sedated, intubated on ventilator support. SKIN: Adequate turgor. HEENT: Slightly pale conjunctivae, anicteric sclerae. NECK: No neck mass, no carotid bruit, no JVD. CHEST: No deformities. LUNGS: Decreased breath sounds. HEART: Normal sinus rhythm. No murmur, no gallops, no rubs. ABDOMEN: Globular, soft, nontender, no masses. EXTREMITIES: No edema. MEDICATIONS: 01/12/2018 - Reviewed. LABORATORIES: 01/10/2018 - Hemoglobin 10, white count is 9.6. 01/12/2018 - Sodium 140, potassium 3.9, chloride 103, carbon dioxide 27, BUN 40, creatinine 3.61, alicia cium 8.7. ASSESSMENT AND PLAN: 1. Acute respiratory failure - secondary to decreased mentation. Again, the possibility she may hav e hypoxic encephalopathy remains. Continue supportive care. 2. End-stage renal disease, stable. We will continue the 3 times a week hemodialysis regimen. I di d review the chest x-ray - minimal fluid. We will remove fluid only as tolerated by the patient. 3. Anemia, much improved, currently on weekly Epogen. Overall, prognosis remains guarded.
[2018-01-12] MEDS: Famotidine 20 MG TAB PO SCH ×2 (10:09→10:13)
[2018-01-12] MEDS: Ferrous Sulfate 325 MG TAB PO SCH ×2 (10:09→10:12)
[2018-01-12] MEDS: Losartan 25 MG TAB PO SCH (10:09)
[2018-01-12] MEDS: Metoprolol Tartrate 25 MG TAB PO SCH ×2 (10:10→21:34)
[2018-01-12] MEDS: levETIRAcetam 500 MG TAB PO SCH ×2 (10:11→21:33)
[2018-01-12] MEDS: Dorzolamide HCl 2% Ophth Soln 10 ml Bottle EA EYE SCH ×2 (10:16→21:33)
[2018-01-12] MEDS: Aspirin 81 mg Enteric Coated Tablet PO SCH (10:16)
--- NOTE | 2018-01-12 11:49 | EKG ---
Test Reason : Blood Pressure : / mmHG Vent. Rate : 079 BPM Atrial Rate : 079 BPM P-R Int : 114 ms QRS Dur : 066 ms QT Int : 394 ms P-R-T Axes : 076 023 199 degrees QTc Int : 451 ms Normal sinus rhythm Low voltage QRS Cannot rule out Anterior infarct (cited on or before 04-SEP-2017) Nonspecific ST-T changes Abnormal ECG When compared with ECG of 31-DEC-2017 13:17, (Unconfirmed) No significant change was found Confirmed by DR. Rashawn ALEXANDER ([id number]) on 01/12/2018 11:49:04 AM Referred By: LASHANDA Confirmed By:DR. Rashawn ALEXANDER
[2018-01-12] MEDS: hydrALAZINE 25 MG TAB PO SCH ×2 (13:09→21:33)
--- NOTE | 2018-01-12 14:54 | PDOC.PN ---
- Subjective Encounter Start Date: 01/12/18 Encounter Start Time: 11:30 -: non-verbal, old records requested/rev Pt seen and examined, chart reviewed in its entirety, this is my first visit with this patient No F/C, no N/V/D/C, no CP, no SOB Pt unresponsive off of SEDATION, NO AUTE EVENTS OVERNIGHT ROS not obtainable due to AMS - Objective MAR Reviewed: Yes Vital Signs & Weight: Vital Signs (12 hours) Temp Pulse Pulse Pulse Resp BP BP 01/12/18 13:09 78 01/12/18 12:40 78 01/12/18 10:05 73 01/12/18 10:00 10 L 01/12/18 08:49 106 H 75 141/85 H 01/12/18 08:00 97.5 F L 73 14 01/12/18 07:00 97.5 F L 01/12/18 06:43 77 01/12/18 06:00 14 01/12/18 04:00 97.7 F 17 01/12/18 03:34 76 141/88 H BP Pulse Ox Pulse Ox 01/12/18 13:09 01/12/18 12:40 01/12/18 10:05 01/12/18 10:00 01/12/18 08:49 135/79 99 99 01/12/18 08:00 01/12/18 07:00 01/12/18 06:43 01/12/18 06:00 01/12/18 04:00 01/12/18 03:34 Weight Admit Weight 139 lb Weight 117 lb 11.629 oz Most Recent Monitor Data Heart Rate from ECG 80 NIBP 107/66 NIBP BP-Mean 80 Respiration from ECG 7 SpO2 100 I&O: 01/11/18 01/12/18 01/13/18 06:59 06:59 06:59 Intake Total 120 7 0 Output Total 95 40 5 Balance 25 -33 -5 Result Diagrams: 01/14/18 04:10 01/14/18 04:10 Additional Labs: Accuchecks 01/12/18 01/12/18 01/11/18 12:57 03:53 21:05 POC Glucose 98 118 H 151 H 01/11/18 15:26 POC Glucose 132 H Radiology Reviewed by me: Yes EKG Reviewed by me: Yes Phys Exam - Physical Examination Constitutional: NAD HEENT: PERRLA, moist MMs, sclera anicteric, oral pharynx no lesions orally intubated, OG tube in place Neck: no nodes, no JVD, supple, full ROM Respiratory: no wheezing, no rales, no rhonchi, clear to auscultation bilateral Cardiovascular: RRR, no significant murmur, no rub Gastrointestinal: soft, non-tender, no distention, positive bowel sounds Musculoskeletal: pulses present, edema present Lymphatic: no nodes Deviation from normal: unresponsive except attempts to open eyes to verbal stimuli Skin: no rash, normal turgor, cap refill <2 seconds Dx/Plan (1) Cardiac arrest Code(s): I46.9 - CARDIAC ARREST, CAUSE UNSPECIFIED Status: Acute Comment: s/ p ACLS and cardioversion, stable currently, no ACS noted currently (2) Encephalopathy acute Code(s): G93.40 - ENCEPHALOPATHY, UNSPECIFIED Status: Acute Comment: Multifactorial, persistent, CT brain negative, appreciate Neurology assistance, suspected hypoxic/anoxic encephalopathy, ? contributor to recurrent resp failure (3) Hypotension, iatrogenic Code(s): I95.89 - OTHER HYPOTENSION Status: Acute Comment: Recurrent episode and associated resp failure requiring intubation, [facility], no pressors currently (4) CAD (coronary artery disease) Code(s): I25.10 - ATHSCL HEART DISEASE OF [place] CORONARY ARTERY W/O ANG PCTRS Status: Chronic (5) ESRD (end stage renal disease) on dialysis Code(s): N18.6 - END STAGE RENAL DISEASE; Z99.2 - DEPENDENCE ON RENAL DIALYSIS Status: Chronic Comment: HD per Renal service (6) Hypotension Status: Resolved (7) 3-vessel CAD Status: Acute Comment: Continue med mgmt, Cardiology assistance appreciated (8) Acute exacerbation of CHF (congestive heart failure) Code(s): I50.9 - HEART FAILURE, UNSPECIFIED Status: Acute Qualifiers: Qualified Code(s): I50.43 - Acute on chronic combined systolic (congestive) and diastolic (congestive) heart failure Comment: Resolving, serial HD tolerated (9) Hypoalbuminemia Code(s): E88.09 - OTH DISORDERS OF PLASMA-PROTEIN METABOLISM, NEC Status: Acute Comment: due to diabetic nephropathy (10) Anemia, normocytic normochromic Code(s): D64.9 - ANEMIA, UNSPECIFIED Status: Chronic (11) DM type 1 (diabetes mellitus, type 1) Status: Chronic Qualifiers: Diabetes mellitus complication status: with ophthalmic complications Diabetes mellitus complication detail: with diabetic retinopathy Diabetic retinopathy severity: with unspecified retinopathy severity Diabetes mellitus macular edema: macular edema presence unspecified Laterality: bilateral Qualified Code(s): E10.319 - Type 1 diabetes mellitus with unspecified diabetic retinopathy without macular edema (12) Glaucoma Code(s): H40.9 - UNSPECIFIED GLAUCOMA Status: Chronic (13) Hypertension Code(s): I10 - ESSENTIAL (PRIMARY) HYPERTENSION Status: Chronic Qualifiers: Hypertension type: essential hypertension Qualified Code(s): I10 - Essential (primary) hypertension (14) Acute hypoxemic respiratory failure Code(s): J96.01 - ACUTE RESPIRATORY FAILURE WITH HYPOXIA Status: Acute Comment: reintubated on vent. Pulm following - Plan cont current plan of care, continue antibiotics, PT/OT, respiratory therapy * .
[2018-01-12] MEDS: Atorvastatin Calcium 40 MG TAB PO SCH (21:33)
--- NOTE | 2018-01-12 22:12 | PRG ---
DATE OF SERVICE: 01/12/2018 SUBJECTIVE: Ms. Gimenez remains mechanically ventilated. OBJECTIVE: VITAL SIGNS: Heart rate 89, blood pressure 122/76, respiratory rate is 17. HEENT: Pupils react. Sclerae anicteric. NECK: Supple. LUNGS: Clear anteriorly. HEART: Regular rate and rhythm. ABDOMEN: Soft and nontender. EXTREMITIES: Without asymmetry. LABORATORY DATA: Sodium 140, potassium 4.9, chloride 103, bicarb 27, BUN 40, creatinine 3.61. A pH 7.51, pCO2 of 32, pO2 of 75. Ventilator rate was adjusted down. IMPRESSION: 1. Recurrent hypotension most likely secondary to coronary ischemia. There is really nothing that c an be done for her therapeutically from a coronary artery standpoint per my discussion with cardiolog ist. 2. End-stage renal disease. 3. Anoxic injury secondary to a code earlier during this admission. 4. Diabetes with hypoglycemia on presentation, no clinical evidence of sepsis in this admission. Her prognosis for any type of functional recovery, I believe is dismal. With these recurrent episode s of hypotension (she has had 3 this admission) I suspect one of these will lead to her demise. We w ill continue with mechanical ventilation. Dr. Garcia recommended starting her on Ranexa today, hopefully, this will help. Critical care time 30 minutes.
[2018-01-13 04:58] LABS: Anion Gap 11 mmol/L (10-20); BUN (Urea Nitrogen) 17 mg/dL (7.0-18.7); Calc. Creatinine Clearance 29 mL/min (70-130); Calcium 8.3 mg/dL (7.8-10.44); Carbon Dioxide 30 mmol/L (22-29); Chloride 101 mmol/L (98-107); Estimated GFR-MDRD 30; Glucose 103 mg/dL (70-105); Potassium 3.8 mmol/L (3.5-5.1); Sodium 138 mmol/L (136-145)
[2018-01-13] MEDS: Nitroglycerin 2% Ointment 1 INCH/1 GM Packet TOP SCH ×3 (06:20→22:04)
[2018-01-13] MEDS: hydrALAZINE 25 MG TAB PO SCH (09:02)
[2018-01-13] MEDS: Famotidine 20 MG TAB PO SCH (09:03)
[2018-01-13] MEDS: levETIRAcetam 500 MG TAB PO SCH ×2 (09:03→22:01)
[2018-01-13] MEDS: Aspirin 81 mg Enteric Coated Tablet PO SCH (09:04)
[2018-01-13] MEDS: Dorzolamide HCl 2% Ophth Soln 10 ml Bottle EA EYE SCH ×2 (09:04→22:05)
[2018-01-13] MEDS: Ferrous Sulfate 325 MG TAB PO SCH (09:04)
--- NOTE | 2018-01-13 09:12 | PRG ---
DATE OF SERVICE: 01/13/2018 RENAL MEDICINE SUBJECTIVE: Ms. Gimenez is a 37-year-old black female followed up by the [facility]al Service for her mainte nance hemodialysis. She underwent hemodialysis yesterday without any significant difficulty. She wa s recently reintubated due to acute respiratory failure. Her mentation is still decrease at the pres ent time. PHYSICAL EXAMINATION: VITAL SIGNS: Blood pressure is 155/91, heart rate 86, respiratory rate 10, pulse ox 98%, temperature 97.5. GENERAL: The patient is unresponsive, intubated on ventilator support. SKIN: Adequate turgor. HEENT: Pinkish conjunctivae. Anicteric sclerae. NECK: No neck mass, no carotid bruits, no JVD. CHEST: No deformities. LUNGS: Clear breath sounds. HEART: Normal sinus rhythm. No murmurs, no gallops, no rubs. ABDOMEN: Globular, soft, nontender, no masses. EXTREMITIES: No edema. MEDICATIONS: Medications of 01/13/2018 was reviewed. LABORATORY DATA: Laboratories of 01/10/2018; hemoglobin is 10, white count 9.6. On 01/13/2018; sodi um 138, potassium 3.8, chloride 101, carbon dioxide 30, BUN 17, creatinine 2.25, glucose 103, and alicia cium 8.3. ASSESSMENT AND PLAN: 1. End-stage renal disease, stable. We will continue 3 times a week hemodialysis. Fluid removal on ly as tolerated. 2. Acute respiratory failure - secondary to decreased mentation and hypoventilation. Patient is int ubated and ventilator support. 3. Anemia, continuing weekly Epogen. Will be rechecking a base met and CBC in a.m.
[2018-01-13 09:24] LABS: Actual Bicarbonate (HCO3a) 27.5 mEq/L (22-26); Base Excess (BEa) 4.1 mEq/L (0 (+/-) 2.5); CO2 Tension 36.4 mmHg (35.0-45.0); Hematocrit-ABG 27.2 % (36.0-47.0); O2 Tension (PaO2) 82.2 mmHg (80.0-100.0)
[2018-01-13 09:25] LABS: Calcium, Ionized 1.2 mmol/L (1.12-1.30); Hemoglobin (Hb) 8.3 g/dL (12.0-16.0); Puncture Site RRA
--- NOTE | 2018-01-13 13:38 | PQF ---
DASHACHARLY JOSEPH ERIC [id number] CLINICAL DOCUMENTATION IMPROVEMENT CLARIFICATION FORM: ICD-10 Updated PLEASE DO AN ADDENDUM TO THE PROGRESS NOTE WITH ANY DOCUMENTATION UPDATES OR ADDITIONS AND CARRY THROUGH TO DC SUMMARY. THANK YOU. DATE: 01-13-18 ATTN: DR. CHANEL Please exercise your independent, professional judgment in responding to the clarification form. Clinical indicators are provided on the bottom of this form for your review Please check appropriate box(s): AMI TYPE: [ ] NSTEMI [ ] AMI Type II [ ] Other diagnosis [ ] Unable to determine In addition, please specify: Present on Admission (POA): [ ] Yes [ ] No [ ] Unable to determine CLINICAL INDICATORS - SIGNS / SYMPTOMS / LABS KEIHSA CONSULT: PROBABLY DEMAND ISCHEMIA, ALTHOUGH NC CANNOT BE TOTALLY RULED OUT 2- @ 1404 0.178 2- @ 1958 0.103 - @ 1145 0.435 - PN DR. BYNUM: CODE BLUE ; UNRESPONSIVE; NO PULSE; NOT BREATHING - PN DR. PYLE: POSSIBLE CARDIAC LESION 01-[address] PYLE: RECURRENT HYPOTENSION MOST LIKELY D/T CORONARY ISCHEMIA RISKS: H&P: ESRD; CAD S/P CABG; CHF; DM TYPE 1 PN - CARDIAC ARREST W/ V-FIB TREATMENTS: CARDIO CONSULT MAR: Aspirin 2-16 to 01-13 Lasix IV - / 2- Levophed 2- Lopressor 2- to 01-12 Nitro-Bid 2% Ointment 01-11 / 01-12 / 01-13 MECHANICAL VENT - @ 2035 TO 01-08 @ 1809 - LATER BACK ON VENT AGAIN THANK YOU, BRANDY (This form is maintained as a part of the permanent medical record) 2014 [employer]. All Rights Reserved Brandy Salazar RN, BS [email or web address]
--- NOTE | 2018-01-13 14:33 | PDOC.PN ---
- Subjective Encounter Start Date: 01/13/18 Encounter Start Time: 12:30 -: non-verbal no changes overngiht. Case discussed iwth pulmonary. Mom down the zavaleta about to get trach and PEG. palliative care attemptimg to contact [facility]K to get consents. No F/c overnight, no d/C, no N/v/. stil lintubate don vent, on minimal to no sedation, not waking up - Objective MAR Reviewed: Yes Vital Signs & Weight: Vital Signs (12 hours) Temp Pulse Pulse Pulse Resp BP BP 01/13/18 12:00 97.9 F 10 L 01/13/18 11:17 73 101/60 01/13/18 10:00 10 L 01/13/18 09:07 81 124/76 01/13/18 09:02 86 01/13/18 08:42 82 82 132/84 01/13/18 08:00 10 L 01/13/18 07:57 97.5 F L 86 10 L 01/13/18 07:00 97.5 F L 01/13/18 06:00 10 L 01/13/18 04:00 12 01/13/18 03:41 83 124/80 01/13/18 03:00 97.8 F BP Pulse Ox Pulse Ox Pulse Ox 01/13/18 12:00 01/13/18 11:17 01/13/18 10:00 01/13/18 09:07 01/13/18 09:02 01/13/18 08:42 142/85 H 98 98 01/13/18 08:00 01/13/18 07:57 98 01/13/18 07:00 01/13/18 06:00 01/13/18 04:00 01/13/18 03:41 01/13/18 03:00 Weight Admit Weight 139 lb Weight 119 lb 0.794 oz Most Recent Monitor Data Heart Rate from ECG 77 NIBP 136/89 NIBP BP-Mean 107 Respiration from ECG 10 SpO2 99 I&O: 01/12/18 01/13/18 01/14/18 06:59 06:59 06:59 Intake Total 7 150 Output Total 40 15 Balance -33 135 Result Diagrams: 01/14/18 04:10 01/14/18 04:10 Additional Labs: Accuchecks 01/13/18 01/12/1801/12/18 10:34 22:39 15:14 POC Glucose 109 119 H 84 Radiology Reviewed by me: Yes EKG Reviewed by me: Yes Phys Exam - Physical Examination Constitutional: NAD HEENT: PERRLA, moist MMs, sclera anicteric, oral pharynx no lesions Neck: no nodes, no JVD, supple, full ROM Respiratory: no wheezing, no rales, no rhonchi, clear to auscultation bilateral Cardiovascular: RRR, no significant murmur, no rub Gastrointestinal: soft, non-tender, no distention, positive bowel sounds Musculoskeletal: pulses present, edema present Neurological: non-focal, normal sensation, moves all 4 limbs Lymphatic: no nodes Deviation from normal: turns to verbal stim, tries to open eyes, Skin: no rash, normal turgor, cap refill <2 seconds Dx/Plan - Plan * .
[2018-01-13] MEDS: Metoprolol Tartrate 25 MG TAB PO SCH ×2 (14:54→22:03)
[2018-01-13] MEDS: Losartan 25 MG TAB PO SCH (14:54)
--- NOTE | 2018-01-13 15:45 | PRG ---
DATE OF SERVICE: 01/13/2018 SUBJECTIVE: Ms. Gimenez remains mechanically ventilated. She actually had another hypotensive event today. She was placed in Trendelenburg and her blood pressure gradually came up. I have stopped her hydralazine. I am not sure that this is a delayed effect of the hydralazine. I more worried that s he is having intermittent coronary ischemia, but will try to lighten her blood pressure run a little bit higher. OBJECTIVE: VITAL SIGNS: Heart rate 79, blood pressure 131/86, respiratory rates per mechanical ventilation. LUNGS: Clear. HEART: Regular rhythm. ABDOMEN: Soft, nontender. LABORATORY DATA There has been no CBC done in 3 days. pH 7.5, CO2 of 36, pO2 of 82. Electrolytes a re normal. Potassium is 3.8, creatinine is 2.25, BUN 17. IMPRESSION: 1. Respiratory failure. 2. Coronary artery disease, status post coronary bypass grafting with? ongoing ischemia. I talked t o the aunt by phone and relayed all my concerns. Unfortunately, Ms. Gimenez's mom is several doors do wn, mechanically ventilated. Unfortunately, also Ms. Gimenez will unlikely to have the same neurological function she had before. Based on my exam after we extubated her the last time, it is very likely that she will end up with a tracheostomy and feeding tube unless family decides to keep her comfortable. I would think this migh t be unlikely given the burden that is on her shoulders already with the mother on life support. Critical care time was 30 minutes.
[2018-01-13 16:10] LABS: CKMB 3.9 ng/mL (0-6.6); Troponin I 0.049 ng/mL (< 0.028)
[2018-01-13] MEDS: Atorvastatin Calcium 40 MG TAB PO SCH (22:01)
[2018-01-14 05:05] LABS: Eosinophils 1 % (0-10); Hemoglobin 8.7 g/dL (12.0-16.0); Lymphocytes 11 % (21-51); MDiff Complete? YES; Mean Corpuscular HGB CONC 32.3 g/dL (32.0-36.0); Mean Corpuscular Hemoglobin 29.3 pg (27.0-31.0); Mean Corpuscular Volume 90.7 fl (81.0-99.0); Mean Platelet Volume 7.9 fL (7.4-10.4); Monocytes 2 % (0-10); Neutrophil 86 % (42-75); Platelet Count 377 thou/uL (130-400); Red Blood Cell (RBC) Count 2.98 mill/uL (4.20-5.40); White Blood Cell (WBC) Count 12.2 thou/uL (4.8-10.8)
[2018-01-14 05:20] LABS: Anion Gap 12 mmol/L (10-20); BUN (Urea Nitrogen) 26 mg/dL (7.0-18.7); Calc. Creatinine Clearance 22 mL/min (70-130); Calcium 8.7 mg/dL (7.8-10.44); Carbon Dioxide 28 mmol/L (22-29); Chloride 101 mmol/L (98-107); Estimated GFR-MDRD 21; Glucose 111 mg/dL (70-105); Potassium 3.9 mmol/L (3.5-5.1); Sodium 137 mmol/L (136-145)
[2018-01-14 07:17] LABS: Actual Bicarbonate (HCO3a) 28.5 mEq/L (22-26); Base Excess (BEa) 4.7 mEq/L (0 (+/-) 2.5); CO2 Tension 38.9 mmHg (35.0-45.0); Hematocrit-ABG 28.9 % (36.0-47.0); Hemoglobin (Hb) 8.8 g/dL (12.0-16.0); O2 Tension (PaO2) 108.4 mmHg (80.0-100.0); pH, Arterial 7.48 (7.35-7.45)
[2018-01-14 07:18] LABS: ALV-art Gradient 126.175 (0-20); Puncture Site RR
[2018-01-14] MEDS: Losartan 25 MG TAB PO SCH (09:00)
[2018-01-14] MEDS: Famotidine 20 MG TAB PER TUBE SCH (09:00)
[2018-01-14] MEDS: Nitroglycerin 2% Ointment 1 INCH/1 GM Packet TOP SCH ×2 (09:00→21:18)
[2018-01-14] MEDS: levETIRAcetam 500 MG TAB PO SCH ×2 (09:00→21:16)
[2018-01-14] MEDS: Metoprolol Tartrate 25 MG TAB PO SCH ×2 (09:00→21:14)
[2018-01-14] MEDS: Dorzolamide HCl 2% Ophth Soln 10 ml Bottle EA EYE SCH ×2 (09:00→21:20)
[2018-01-14] MEDS: Ferrous Sulfate 325 MG TAB PO SCH (09:00)
[2018-01-14] MEDS: Aspirin 81 mg Enteric Coated Tablet PO SCH (09:00)
--- NOTE | 2018-01-14 09:56 | PRG ---
DATE OF SERVICE: 01/14/2018 RENAL MEDICINE SUBJECTIVE: Ms. Gimenez is a 37-year-old black female with ESRD and currently being followed by the R enal Service for her maintenance hemodialysis. I am currently dialyzing the patient and I am at the bedside attempting about 3.5 liter of fluid removal as tolerated by the patient. No acute events not ed. The only thing is that she has become agitated. She is taking p.r.n. Versed. OBJECTIVE: VITAL SIGNS: Blood pressure is 163/106, heart rate 90, pulse ox 95%. GENERAL: Sedated and intubated on ventilator support. SKIN: Adequate turgor. HEENT: Pinkish conjunctivae, anicteric sclerae. NECK: No neck mass, no carotid bruits, no JVD. CHEST: No deformities. LUNGS: Decreased breath sounds. HEART: Normal sinus rhythm. No murmur, no gallops or rubs. ABDOMEN: Globular, soft, nontender. EXTREMITIES: No edema, no deformities. MEDICATIONS: Of 01/14/2018 was reviewed. LABORATORY DATA: Of 01/14/2018, white count 12.2, hemoglobin 8.7, sodium 137, potassium 3.9, chlorid e 101, carbon dioxide 28, BUN is 26, creatinine 3.04, glucose 111, calcium 8.7. ASSESSMENT AND PLAN: 1. End-stage renal disease - Continue current Thursday, , and Thursday dialysis regimen. Flu id removal only as tolerated by the patient. No heparin use with the dialysis. Catheter has adequat e blood flow. 2. Acute respiratory failure - currently intubated on ventilator support. Continue supportive care. Pulmonary is following. 3. Anemia, on weekly Epogen.
--- NOTE | 2018-01-14 11:12 | PRG ---
DATE OF SERVICE: 01/14/2018 Ms. Gimenez moves all of her extremities. She is sedated for ventilation. PHYSICAL EXAMINATION: VITAL SIGNS: Blood pressures have been a little elevated, as high as 163/106 today. Heart rate is 9 0, respiratory rate is per mechanical ventilation. HEENT: Pupils are equal. Sclerae is anicteric. LUNGS: Lungs are remarkable for coarse equal breath sounds. HEART: Regular rhythm. S1 and S2 are normal. ABDOMEN: Soft. EXTREMITIES: With asymmetry. LABORATORY DATA: White count 12.3, hemoglobin 8.7, platelets 377. Sodium 137, potassium 3.9, chloride 101, bicarbonate 28, BUN 26, creatinine 3.04. IMPRESSION: 1. Respiratory failure associated with hypotension. 2. Status post cardiorespiratory arrest after dialysis. 3. Status post admission for hypoglycemia. 4. End-stage renal disease. 5. Severe coronary disease, status post coronary bypass grafting with poor targets. PLAN: Continue mechanical ventilation. She had marginal ability to protect her airway after extubat ion last time, but she made it several days and actually was reintubated for hypotension and not for airway issues or respiratory distress. This is a very sad situation. Her mother is actually intubated in the ICU at the same time. Tracheostomy and PEG may be in her future if the family wants to go down this path. I would not jonas mmend extubation at this point in time. Her blood pressure is running a little higher today. Dialys is should take care of that. Fluid balance was reviewed and her intake and output is only positive 36 mL. I have written an order for daily radiographs. PH today 7.48, CO2 38, pO2 of 108. Critical care time was 30 minutes.
--- NOTE | 2018-01-14 15:41 | PDOC.PN ---
- Subjective Encounter Start Date: 01/14/18 Encounter Start Time: 13:50 no changes. Sedation off, not waking up. not onany nutrition, will attempt to discuss with pulm - Objective MAR Reviewed: Yes Vital Signs & Weight: Vital Signs (12 hours) Temp Pulse Resp BP Pulse Ox 01/14/18 15:23 102 H 139/103 H 01/14/18 14:00 10 L 01/14/18 13:28 94 122/80 01/14/18 12:00 98.6 F 01/14/18 11:37 95 82/55 L 01/14/18 10:00 10 L 01/14/18 08:00 98.1 F 90 10 L 99 01/14/18 07:45 88 172/112 H 01/14/18 06:00 10 L 01/14/18 04:00 10 L Weight Admit Weight 139 lb Weight 116 lb 6.465 oz Most Recent Monitor Data Heart Rate from ECG 97 NIBP 141/97 NIBP BP-Mean 118 Respiration from ECG 10 SpO2 97 I&O: 01/13/18 01/14/18 01/15/18 06:59 06:59 06:59 Intake Total 150 279.4 Output Total 15 243 165 Balance 135 36.4 -165 Result Diagrams: 01/14/18 04:10 01/14/18 04:10 Additional Labs: Accuchecks 01/14/18 01/14/18 01/13/18 11:42 04:31 23:13 POC Glucose 83 113 H 156 H 01/13/18 01/13/18 22:20 15:35 POC Glucose 76 95 Radiology Reviewed by me: Yes EKG Reviewed by me: Yes Phys Exam - Physical Examination Constitutional: NAD HEENT: PERRLA, moist MMs, sclera anicteric, oral pharynx no lesions oral ETT adn OG tubes in place Neck: no nodes, no JVD, supple, full ROM Respiratory: no wheezing, no rales, no rhonchi, clear to auscultation bilateral Cardiovascular: RRR, no significant murmur, no rub Gastrointestinal: soft, non-tender, no distention, positive bowel sounds Musculoskeletal: pulses present, edema present Lymphatic: no nodes Deviation from normal: turns to calling her name, tires to open eyes Skin: no rash, normal turgor, cap refill <2 seconds Dx/Plan (1) Acute hypoxemic respiratory failure Code(s): J96.01 - ACUTE RESPIRATORY FAILURE WITH HYPOXIA Status: Acute Comment: reintubated on vent. Pulm following (2) Cardiac arrest Code(s): I46.9 - CARDIAC ARREST, CAUSE UNSPECIFIED Status: Acute Comment: s/ p ACLS and cardioversion, stable currently, no ACS noted currently (3) Encephalopathy acute Code(s): G93.40 - ENCEPHALOPATHY, UNSPECIFIED Status: Acute Comment: Multifactorial, persistent, CT brain negative, appreciate Neurology assistance, suspected hypoxic/anoxic encephalopathy, ? contributor to recurrent resp failure (4) Hypotension, iatrogenic Code(s): I95.89 - OTHER HYPOTENSION Status: Acute Comment: Recurrent episode and associated resp failure requiring intubation, BP improved after mech ventilation, no pressors currently (5) CAD (coronary artery disease) Code(s): I25.10 - ATHSCL HEART DISEASE OF [place] CORONARY ARTERY W/O ANG PCTRS Status: Chronic (6) ESRD (end stage renal disease) on dialysis Code(s): N18.6 - END STAGE RENAL DISEASE; Z99.2 - DEPENDENCE ON RENAL DIALYSIS Status: Chronic Comment: HD per Renal service (7) Hypotension Status: Resolved (8) 3-vessel CAD Status: Acute Comment: Continue med mgmt, Cardiology assistance appreciated (9) DM type 1 (diabetes mellitus, type 1) Status: Chronic Qualifiers: Diabetes mellitus complication status: with ophthalmic complications Diabetes mellitus complication detail: with diabetic retinopathy Diabetic retinopathy severity: with unspecified retinopathy severity Diabetes mellitus macular edema: macular edema presence unspecified Laterality: bilateral Qualified Code(s): E10.319 - Type 1 diabetes mellitus with unspecified diabetic retinopathy without macular edema (10) Diabetes type 1, uncontrolled Code(s): E10.65 - TYPE 1 DIABETES MELLITUS WITH HYPERGLYCEMIA Status: Chronic Qualifiers: Diabetes mellitus complication status: with hyperglycemia Qualified Code(s) : E10.65 - Type 1 diabetes mellitus with hyperglycemia Comment: Continue Levemir 25u sc qam and decrease 15u sc hs due to am hypoglycemia (11) Glaucoma Code(s): H40.9 - UNSPECIFIED GLAUCOMA Status: Chronic (12) Hypertension Code(s): I10 - ESSENTIAL (PRIMARY) HYPERTENSION Status: Chronic Qualifiers: Hypertension type: essential hypertension Qualified Code(s): I10 - Essential (primary) hypertension - Plan * .
[2018-01-14] MEDS: Atorvastatin Calcium 40 MG TAB PO SCH (21:14)
[2018-01-15 04:49] LABS: Anion Gap 12 mmol/L (10-20); BUN (Urea Nitrogen) 14 mg/dL (7.0-18.7); Calc. Creatinine Clearance 29 mL/min (70-130); Calcium 8.8 mg/dL (7.8-10.44); Carbon Dioxide 28 mmol/L (22-29); Chloride 103 mmol/L (98-107); Estimated GFR-MDRD 29; Glucose 64 mg/dL (70-105); Potassium 3.5 mmol/L (3.5-5.1); Sodium 139 mmol/L (136-145)
[2018-01-15 05:19] LABS: Band 8 % (5-11); Eosinophils 1 % (0-10); Hemoglobin 8.6 g/dL (12.0-16.0); Lymphocytes 21 % (21-51); MDiff Complete? YES; Mean Corpuscular HGB CONC 32.9 g/dL (32.0-36.0); Mean Corpuscular Hemoglobin 29.5 pg (27.0-31.0); Mean Corpuscular Volume 89.8 fl (81.0-99.0); Mean Platelet Volume 7.5 fL (7.4-10.4); Monocytes 3 % (0-10); Neutrophil 67 % (42-75); Platelet Count 371 thou/uL (130-400); RBC Distribution Width 17.7 % (11.5-14.5); Red Blood Cell (RBC) Count 2.93 mill/uL (4.20-5.40); White Blood Cell (WBC) Count 9.7 thou/uL (4.8-10.8)
[2018-01-15] MEDS: hydrALAZINE 20 MG/ML VIAL SLOW IVP PRN (06:05)
--- NOTE | 2018-01-15 08:54 | RAD ---
FRONTAL VIEW CHEST: Date: 01/15/18 COMPARISON: 01/11/18. INDICATION: Ventilated patient, follow-up. FINDINGS: Tunneled right-sided vascular catheter is again seen. Endotracheal tube and enteric catheter remain i n place. No significant interval change. IMPRESSION: Stable chest. POS: GUS
[2018-01-15] MEDS: Dorzolamide HCl 2% Ophth Soln 10 ml Bottle EA EYE SCH ×2 (09:00→20:50)
[2018-01-15] MEDS: Metoprolol Tartrate 25 MG TAB PO SCH ×2 (09:29→20:49)
[2018-01-15] MEDS: levETIRAcetam 500 MG TAB PO SCH ×2 (09:29→20:49)
[2018-01-15] MEDS: Famotidine 20 MG TAB PER TUBE SCH (09:29)
[2018-01-15] MEDS: Aspirin 81 mg Enteric Coated Tablet PO SCH (09:29)
[2018-01-15] MEDS: Nitroglycerin 2% Ointment 1 INCH/1 GM Packet TOP SCH ×2 (09:30→20:49)
[2018-01-15] MEDS: Ferrous Sulfate 325 MG TAB PO SCH (09:30)
[2018-01-15] MEDS: Losartan 25 MG TAB PO SCH (09:30)
--- NOTE | 2018-01-15 10:38 | PRG ---
DATE OF SERVICE: 01/15/2018 SUBJECTIVE: Ms. Gimenez is a 37-year-old black female being followed up for her maintenance hemodialy sis. She has had 2 episodes of cardiorespiratory arrest. She is intubated. Due to decreased mentat ion she is unable to wean. The family has been informed about possible tracheostomy and they are try ing to decide on this. No acute events last night. She received dialysis yesterday without any difficulty. Several liters of fluid was removed with dialysis. PHYSICAL EXAMINATION: VITAL SIGNS: Blood pressure is 124/81, heart rate 88, respiratory rate 12, pulse ox 99%. GENERAL: Decreased mentation, not responding to my verbal stimuli, intubated on ventilator support. SKIN: Adequate turgor. HEENT: She has slightly pale conjunctivae, anicteric sclerae. NECK: No neck mass, no carotid bruits, no JVD. CHEST: No deformities. LUNGS: Decreased breath sounds. HEART: Normal sinus rhythm. No murmur, no gallops, no rubs. ABDOMEN: Globular, soft, nontender, no masses. EXTREMITIES: No edema. MEDICATIONS: 01/15/2018 - Reviewed. LABORATORY: 01/15/2018 - White count 9.7, hemoglobin 8.6. Sodium 139, potassium 3.5, chloride 103, carbon dioxide 28, BUN 14, creatinine 2.28, glucose 64, calcium 8.8. ASSESSMENT AND PLAN: 1. End-stage renal disease, stable. Continue current Thursday, , and Thursday dialysis. Aga in, fluid removal as tolerated by the patient. 2. Labile hypertension, slowly improving. Continue current blood pressure meds. 3. Acute respiratory failure - due to severe decreased mentation, unable to be weaned off. Consider ation for hypoxic encephalopathy/metabolic encephalopathy is being considered. Overall prognosis remains guarded. Awaiting family decision regarding tracheostomy.
--- NOTE | 2018-01-15 11:07 | PRG ---
DATE OF SERVICE: 01/15/2018 Ms. Gimenez remains mechanically ventilated. PHYSICAL EXAMINATION: VITAL SIGNS: Blood pressure 143/93, heart rate is 85, respiratory rates per mechanical ventilation. HEENT: Pupils react. NECK: Supple. LUNGS: Her lungs are clear. HEART: Regular rhythm. S1 and S2 are normal. ABDOMEN: Abdomen is soft and nontender. EXTREMITIES: Without asymmetry. LABORATORY DATA: White count is 9.7, hemoglobin 8.6, platelets 171,000. Sodium 139, potassium 3.5, chloride 103, bicarbonate 28, BUN 14, creatinine 2.28. There is no blood gas today. IMPRESSION: 1. Respiratory failure associated with hypotension. 2. Anoxic brain injury after a cardiac arrest on the medical floor. 3. Status post admission for hypoglycemia complicated by hypotension after hypoglycemia was repeated . 4. Coronary artery disease with a history of bypass grafting with poor targets. I suspect these int ermittent episodes of hypertension maybe this coronary artery mediated. I do not feel that she will wean for very long without a tracheostomy based on my evaluation of her o ff of mechanical ventilation last admission. She will need a tracheostomy tube and a PEG tube most l ikely. All of this is complicated by the fact that her mother is mechanically ventilated in the ICU at the same time. PLAN: We will continue with current care. Slow weaning from mechanical ventilation. The leading is sues are more mental status mediated. I do not think she will successfully protect her airway for very long, no more than a few days if we were to extubate her at this point in time. Critical care time was 30 minutes. ADDENDUM: 01/15/2018 ADD TO OTHER PROBLEM LIST: 1. End-stage renal disease on dialysis. 2. History of hypertension. 3. History of diabetes. 4. Glaucoma with legal blindness. 5. Reflux disease. 6. History of a thoracentesis in the past. 7. History of multiple vascular access procedures. We will continue to try to update the family, although I have not seen the since her cardiac arrest. The nurses have not seen him during the day as well. Palliative Care has been very helpful at contacting family. I did discuss Ms. Gimenez's care with an aunt who told me she would relay all t he information to the rest of the family.
--- NOTE | 2018-01-15 13:59 | PDOC.PN ---
- Subjective Encounter Start Date: 01/15/18 Encounter Start Time: 11:25 -: non-verbal - Objective MAR Reviewed: Yes Vital Signs & Weight: Vital Signs (12 hours) Temp Pulse Resp BP Pulse Ox 01/15/18 13:44 77 146/60 H 01/15/18 12:00 97.8 F 10 L 01/15/18 10:00 10 L 01/15/18 08:39 88 124/81 01/15/18 08:00 97.8 F 88 10 L 99 01/15/18 06:05 88 183/117 H 01/15/18 05:56 10 L 01/15/18 04:00 98.2 F 10 L 01/15/18 02:00 10 L Weight Admit Weight 139 lb Weight 100 lb 4.965 oz Most Recent Monitor Data Heart Rate from ECG 77 NIBP 146/90 NIBP BP-Mean 104 Respiration from ECG 13 SpO2 96 I&O: 01/14/18 01/15/18 01/16/18 06:59 06:59 06:59 Intake Total 279.4 268.1 Output Total 243 790 15 Balance 36.4 -521.9 -15 Result Diagrams: 01/15/18 04:20 01/15/18 04:20 Additional Labs: Accuchecks 01/15/18 01/15/18 01/14/18 13:42 04:19 23:56 POC Glucose 63 L 66 L 70 01/14/18 01/14/18 22:51 18:44 POC Glucose 66 L 80 Radiology Reviewed by me: Yes EKG Reviewed by me: Yes Phys Exam - Physical Examination Constitutional: NAD HEENT: PERRLA, moist MMs, sclera anicteric, oral pharynx no lesions Neck: no nodes, no JVD, supple, full ROM Respiratory: no wheezing, no rales, no rhonchi, clear to auscultation bilateral Cardiovascular: RRR, no significant murmur, no rub Gastrointestinal: soft, non-tender, no distention, positive bowel sounds Musculoskeletal: no edema, pulses present Lymphatic: no nodes Skin: no rash, normal turgor, cap refill <2 seconds Dx/Plan (1) Acute hypoxemic respiratory failure Code(s): J96.01 - ACUTE RESPIRATORY FAILURE WITH HYPOXIA Status: Acute Comment: reintubated on vent. Pulm following (2) Cardiac arrest Code(s): I46.9 - CARDIAC ARREST, CAUSE UNSPECIFIED Status: Acute Comment: s/ p ACLS and cardioversion, stable currently, no ACS noted currently (3) Encephalopathy acute Code(s): G93.40 - ENCEPHALOPATHY, UNSPECIFIED Status: Acute Comment: Multifactorial, persistent, CT brain negative, appreciate Neurology assistance, suspected hypoxic/anoxic encephalopathy, ? contributor to recurrent resp failure (4) Hypotension, iatrogenic Code(s): I95.89 - OTHER HYPOTENSION Status: Acute Comment: Recurrent episode and associated resp failure requiring intubation, [facility], no pressors currently (5) CAD (coronary artery disease) Code(s): I25.10 - ATHSCL HEART DISEASE OF [place] CORONARY ARTERY W/O ANG PCTRS Status: Chronic (6) ESRD (end stage renal disease) on dialysis Code(s): N18.6 - END STAGE RENAL DISEASE; Z99.2 - DEPENDENCE ON RENAL DIALYSIS Status: Chronic Comment: HD per Renal service (7) Hypotension Status: Resolved (8) 3-vessel CAD Status: Acute Comment: Continue med mgmt, Cardiology assistance appreciated (9) DM type 1 (diabetes mellitus, type 1) Status: Chronic Qualifiers: Diabetes mellitus complication status: with ophthalmic complications Diabetes mellitus complication detail: with diabetic retinopathy Diabetic retinopathy severity: with unspecified retinopathy severity Diabetes mellitus macular edema: macular edema presence unspecified Laterality: bilateral Qualified Code(s): E10.319 - Type 1 diabetes mellitus with unspecified diabetic retinopathy without macular edema (10) Diabetes type 1, uncontrolled Code(s): E10.65 - TYPE 1 DIABETES MELLITUS WITH HYPERGLYCEMIA Status: Chronic Qualifiers: Diabetes mellitus complication status: with hyperglycemia Qualified Code(s) : E10.65 - Type 1 diabetes mellitus with hyperglycemia Comment: Continue Levemir 25u sc qam and decrease 15u sc hs due to am hypoglycemia (11) Glaucoma Code(s): H40.9 - UNSPECIFIED GLAUCOMA Status: Chronic (12) Hypertension Code(s): I10 - ESSENTIAL (PRIMARY) HYPERTENSION Status: Chronic Qualifiers: Hypertension type: essential hypertension Qualified Code(s): I10 - Essential (primary) hypertension (13) Demand ischemia of myocardium Code(s): I24.8 - OTHER FORMS OF ACUTE ISCHEMIC HEART DISEASE Status: Acute - Plan cont current plan of care, social welfare clerk * .
[2018-01-15] MEDS: Epoetin (ESRD) 20,000 UNITS/ML SC SCH (17:08)
[2018-01-15] MEDS: Atorvastatin Calcium 40 MG TAB PO SCH (20:49)
[2018-01-16 04:54] LABS: Eosinophils 2 % (0-10); Hemoglobin 9.4 g/dL (12.0-16.0); Lymphocytes 21 % (21-51); MDiff Complete? YES; Mean Corpuscular HGB CONC 32.4 g/dL (32.0-36.0); Mean Corpuscular Volume 92.6 fl (81.0-99.0); Mean Platelet Volume 7.9 fL (7.4-10.4); Monocytes 4 % (0-10); Neutrophil 73 % (42-75); Platelet Count 385 thou/uL (130-400); RBC Distribution Width 17.6 % (11.5-14.5); Red Blood Cell (RBC) Count 3.11 mill/uL (4.20-5.40); White Blood Cell (WBC) Count 9.6 thou/uL (4.8-10.8)
[2018-01-16 05:09] LABS: Anion Gap 16 mmol/L (10-20); BUN (Urea Nitrogen) 22 mg/dL (7.0-18.7); Calc. Creatinine Clearance 18 mL/min (70-130); Calcium 9.1 mg/dL (7.8-10.44); Carbon Dioxide 26 mmol/L (22-29); Chloride 102 mmol/L (98-107); Estimated GFR-MDRD 20; Glucose 138 mg/dL (70-105); Potassium 3.7 mmol/L (3.5-5.1); Sodium 140 mmol/L (136-145)
[2018-01-16 07:36] LABS: CO2 Tension 40.3 mmHg (35.0-45.0); pH, Arterial 7.44 (7.35-7.45)
[2018-01-16 07:37] LABS: Actual Bicarbonate (HCO3a) 27.1 mEq/L (22-26); Base Excess (BEa) 2.8 mEq/L (0 (+/-) 2.5); Calcium, Ionized 1.2 mmol/L (1.12-1.30); Hemoglobin (Hb) 9.8 g/dL (12.0-16.0); O2 Tension (PaO2) 78.8 mmHg (80.0-100.0)
[2018-01-16 07:38] LABS: ALV-art Gradient 120.375 (0-20); Puncture Site RRA
[2018-01-16] MEDS: Aspirin 81 mg Enteric Coated Tablet PO SCH (09:30)
[2018-01-16] MEDS: levETIRAcetam 500 MG TAB PO SCH ×2 (09:30→21:41)
[2018-01-16] MEDS: Metoprolol Tartrate 25 MG TAB PO SCH ×2 (09:30→21:42)
[2018-01-16] MEDS: Famotidine 20 MG TAB PER TUBE SCH (09:30)
[2018-01-16] MEDS: Losartan 25 MG TAB PO SCH (09:31)
[2018-01-16] MEDS: Ferrous Sulfate 325 MG TAB PO SCH (09:31)
[2018-01-16] MEDS: Nitroglycerin 2% Ointment 1 INCH/1 GM Packet TOP SCH ×2 (09:32→21:42)
[2018-01-16] MEDS: Dorzolamide HCl 2% Ophth Soln 10 ml Bottle EA EYE SCH ×2 (09:46→21:42)
[2018-01-16] MEDS ORDERED: Metoprolol Tartrate 25 MG TAB PO SCH (10:06)
--- NOTE | 2018-01-16 10:19 | RAD ---
RADIOGRAPH CHEST 1 VIEW: DATE: 01/16/18. TIME: 5:15 a.m. COMPARISON: 01/15/18, 5:10 a.m. HISTORY: A 37-year-old female in respiratory failure. FINDINGS: There are no air space densities, pulmonary edema, pneumothorax, or cardiomegaly. The lateral costop hrenic angles are sharp. No change in life support lines. Sternotomy wires are again noted. IMPRESSION: 1. No acute cardiopulmonary findings. 2. Endotracheal tube, nasogastric tube, and right internal jugular double lumen dialysis catheter, r emain. 3. No interval change overall. arthur [] POS: GUS
--- NOTE | 2018-01-16 11:26 | HP ---
RENAL MEDICINE HISTORY OF PRESENT ILLNESS: Ms. Gimenez is a 37-year-old black female with ESRD and currently being d ialyzed. We attempted to remove more fluid with her, but she dropped her pressure. For that reason, we are attempting to just remove about a liter of fluid. She continues to be on ventilator. She is not weanable. The plan is to eventually have her undergo tracheostomy placement. No acute events noted last night. PHYSICAL EXAMINATION: VITAL SIGNS: Blood pressure is 110/70 with heart rate of 87, respiratory rate 12, pulse ox 100%. GENERAL: Sedated and intubated and ventilator support. SKIN: Adequate turgor. HEENT: Pinkish conjunctivae, anicteric sclerae. NECK: No neck mass, no carotid bruits, no JVD. CHEST: No deformities. LUNGS: Decreased breath sounds. HEART: Normal sinus rhythm. No murmurs, no gallops, no rubs. ABDOMEN: Globular, soft, nontender, no masses. EXTREMITIES: No edema. MEDICATIONS: Medications of 01/16/2018 reviewed. LABORATORY DATA: Laboratories of 01/16/2018; white count 9.6, hemoglobin 9.4. Sodium 140, potassium 3.7, chloride 102, carbon dioxide 26, BUN 22, creatinine 3.22, glucose 138, calcium 9.1. ASSESSMENT AND PLAN: 1. End-stage renal disease, stable. We will continue current hemodialysis regimen of Thursday, day, and Thursday. Fluid removal only as tolerated. 2. Anemia, on weekly Epogen, p.r.n. blood transfusion. 3. Acute respiratory failure, multifactorial etiology. The patient is not weanable. Awaiting decis ion by the family for tracheostomy.
--- NOTE | 2018-01-16 15:12 | PRG ---
DATE OF SERVICE: 01/16/2018 SERVICE: Pulmonary Medicine. INTERVAL HISTORY: The patient is doing okay from a respiratory standpoint. She is on 21% FiO2. She wakes up, but is little groggy. She is following some simple commands. She remains on Versed drip at 5 mg per hour. Otherwise, there has been no change to her condition. PHYSICAL EXAMINATION: VITAL SIGNS: Afebrile, pulse 87, blood pressure 148/97, respirations 10, saturation 100% on 21% FiO2 and a PEEP of 5. GENERAL: The patent is somnolent, but wakes up with gentle stimulation. HEENT: Normocephalic, atraumatic. Sclerae are white, conjunctivae pink. Oral mucosa is moist without lesions. LUNGS: Decent air entry. No prolonged expiratory phase or wheezing is appreciated. HEART: Normal rate and regular. ABDOMEN: Soft, nontender, nondistended. Bowel sounds are positive. MUSCULOSKELETAL: No cyanosis or clubbing. There is no pitting in the bilateral lower extremities. NEUROLOGIC: Grossly nonfocal. LABORATORY DATA: A pH 7.44, pCO2 40, pO2 78. She is on 35% FiO2 at that time corresponding to saturation of 97%. Creatinine 3.22. Basic metabolic profile is otherwise unremarkable. IMAGIN. Chest x-ray demonstrates no acute cardiopulmonary abnormality. There is a small heart. There is an enteric catheter coursing well below the level of the diaphragm. Overlying tubes and wires are also in place. 2. Echocardiogram demonstrates 65%-70% ejection fraction with severe concentric left ventricular hypertrophy. Elevated pulmonary artery pressure is present. ASSESSMENT: 1. Acute hypoxic respiratory failure, resolved. 2. Acute on chronic diastolic heart failure. 3. End-stage renal disease. PLAN: We will leave the patient on mechanical ventilation today. I will wean ventilator settings as tolerated. Pulmonary Critical Care will continue to follow the patient while she remains in this location. Critical care time: 30 minutes. DMITRIYD
--- NOTE | 2018-01-16 16:38 | PDOC.PN ---
- Subjective Encounter Start Date: 01/16/18 Encounter Start Time: 12:00 -: non-verbal lightly sedated, orally intubated. Not much response. notes form consultants reviewed. No F/C, no N/V/d/C. No overnight events. ROS not obtainable due to depressed MS - Objective MAR Reviewed: Yes Vital Signs & Weight: Vital Signs (12 hours) Temp Pulse Resp BP Pulse Ox 01/16/18 15:22 90 125/86 01/16/18 14:00 14 01/16/18 12:00 98.5 F 9 L 01/16/18 11:28 97 119/78 01/16/18 10:00 9 L 01/16/18 08:00 97.5 F L 92 9 L 100 01/16/18 06:41 88 163/95 H 01/16/18 06:00 10 L Weight Admit Weight 139 lb Weight 102 lb 11.767 oz Most Recent Monitor Data Heart Rate from ECG 89 NIBP 125/86 NIBP BP-Mean 95 Respiration from ECG 8 SpO2 98 I&O: 01/15/18 01/16/18 01/17/18 06:59 06:59 06:59 Intake Total 268.1 781 Output Total 790 40 20 Balance -521.9 741 -20 Result Diagrams: 01/16/18 03:40 01/16/18 03:40 Additional Labs: Accuchecks 01/16/18 01/16/18 01/15/18 11:23 03:49 22:06 POC Glucose 125 H 128 H 114 H 01/15/18 16:44 POC Glucose 69 L Radiology Reviewed by me: Yes EKG Reviewed by me: Yes Phys Exam - Physical Examination Constitutional: NAD HEENT: PERRLA, moist MMs, sclera anicteric, oral pharynx no lesions minimally reactive Neck: no nodes, no JVD, supple, full ROM Respiratory: no wheezing, no rales, no rhonchi, clear to auscultation bilateral Cardiovascular: RRR, no significant murmur, no rub Gastrointestinal: soft, no distention, positive bowel sounds Musculoskeletal: no edema Lymphatic: no nodes Skin: no rash, normal turgor, cap refill <2 seconds Dx/Plan (1) Acute hypoxemic respiratory failure Code(s): J96.01 - ACUTE RESPIRATORY FAILURE WITH HYPOXIA Status: Acute Comment: reintubated on vent. Pulm following (2) Cardiac arrest Code(s): I46.9 - CARDIAC ARREST, CAUSE UNSPECIFIED Status: Acute Comment: s/ p ACLS and cardioversion, stable currently, no ACS noted currently (3) Encephalopathy acute Code(s): G93.40 - ENCEPHALOPATHY, UNSPECIFIED Status: Acute Comment: Multifactorial, persistent, CT brain negative, appreciate Neurology assistance, suspected hypoxic/anoxic encephalopathy, ? contributor to recurrent resp failure (4) Hypotension, iatrogenic Code(s): I95.89 - OTHER HYPOTENSION Status: Acute Comment: Recurrent episode and associated resp failure requiring intubation, BP improved after mech ventilation, no pressors currently (5) CAD (coronary artery disease) Code(s): I25.10 - ATHSCL HEART DISEASE OF [place] CORONARY ARTERY W/O ANG PCTRS Status: Chronic (6) ESRD (end stage renal disease) on dialysis Code(s): N18.6 - END STAGE RENAL DISEASE; Z99.2 - DEPENDENCE ON RENAL DIALYSIS Status: Chronic Comment: HD per Renal service (7) Hypotension Status: Resolved (8) 3-vessel CAD Status: Acute Comment: Continue med mgmt, Cardiology assistance appreciated (9) DM type 1 (diabetes mellitus, type 1) Status: Chronic Qualifiers: Diabetes mellitus complication status: with ophthalmic complications Diabetes mellitus complication detail: with diabetic retinopathy Diabetic retinopathy severity: with unspecified retinopathy severity Diabetes mellitus macular edema: macular edema presence unspecified Laterality: bilateral Qualified Code(s): E10.319 - Type 1 diabetes mellitus with unspecified diabetic retinopathy without macular edema (10) Diabetes type 1, uncontrolled Code(s): E10.65 - TYPE 1 DIABETES MELLITUS WITH HYPERGLYCEMIA Status: Chronic Qualifiers: Diabetes mellitus complication status: with hyperglycemia Qualified Code(s) : E10.65 - Type 1 diabetes mellitus with hyperglycemia Comment: Continue Levemir 25u sc qam and decrease 15u sc hs due to am hypoglycemia (11) Glaucoma Code(s): H40.9 - UNSPECIFIED GLAUCOMA Status: Chronic (12) Hypertension Code(s): I10 - ESSENTIAL (PRIMARY) HYPERTENSION Status: Chronic Qualifiers: Hypertension type: essential hypertension Qualified Code(s): I10 - Essential (primary) hypertension (13) Demand ischemia of myocardium Code(s): I24.8 - OTHER FORMS OF ACUTE ISCHEMIC HEART DISEASE Status: Acute - Plan * .
[2018-01-16] MEDS: Atorvastatin Calcium 40 MG TAB PO SCH (21:42)
[2018-01-17 06:37] VITALS: BMI 18.8
[2018-01-17 08:23] LABS: Actual Bicarbonate (HCO3a) 28.8 mEq/L (22-26); Base Excess (BEa) 5.1 mEq/L (0 (+/-) 2.5); CO2 Tension 38.8 mmHg (35.0-45.0); O2 Tension (PaO2) 50.6 mmHg (80.0-100.0); pH, Arterial 7.49 (7.35-7.45)
[2018-01-17 08:24] LABS: Calcium, Ionized 1.1 mmol/L (1.12-1.30); Hematocrit-ABG 29.6 % (36.0-47.0); Hemoglobin (Hb) 8.9 g/dL (12.0-16.0)
[2018-01-17 08:31] LABS: Puncture Site RRA
[2018-01-17] MEDS: levETIRAcetam 500 MG TAB PO SCH ×2 (09:09→21:08)
[2018-01-17] MEDS: Dorzolamide HCl 2% Ophth Soln 10 ml Bottle EA EYE SCH ×2 (09:09→21:09)
[2018-01-17] MEDS: Aspirin 81 mg Enteric Coated Tablet PO SCH (09:09)
[2018-01-17] MEDS: Losartan 25 MG TAB PO SCH (09:10)
[2018-01-17] MEDS: Ferrous Sulfate 325 MG TAB PO SCH (09:10)
[2018-01-17] MEDS: Nitroglycerin 2% Ointment 1 INCH/1 GM Packet TOP SCH ×2 (09:10→21:09)
[2018-01-17] MEDS: Metoprolol Tartrate 25 MG TAB PO SCH ×2 (09:10→21:09)
[2018-01-17] MEDS: Famotidine 20 MG TAB PER TUBE SCH (09:10)
--- NOTE | 2018-01-17 09:53 | PRG ---
DATE OF SERVICE: 01/17/2018 RENAL MEDICINE SUBJECTIVE: Ms. Gimenez is a 37-year-old black female followed up for maintenance hemodialysis. She underwent hemodialysis yesterday. We were able to remove between 1 and 1.5 liters of fluid. She rem ains intubated on ventilator support. We are awaiting for final decision regarding tracheostomy. Archie barnes is semiconscious. She most likely has underlying hypoxic encephalopathy. No acute events last night. OBJECTIVE: VITAL SIGNS: Blood pressure is 137/82, heart rate 87, respiratory rate 12, temperature 98.8, pulse o x 98%. GENERAL: Unresponsive, intubated on ventilator support. SKIN: Adequate turgor. HEENT: She has slightly pale conjunctivae, anicteric sclerae. NECK: No neck mass, no carotid bruits, no JVD. CHEST: No deformities. LUNGS: Decreased breath sounds. HEART: Normal sinus rhythm. No murmur, no gallops, no rubs. ABDOMEN: Globular, soft, nontender, no masses. EXTREMITIES: No edema, no deformities. MEDICATIONS: Of 01/17/2018 was reviewed. LABORATORY DATA: Of 01/16/2018, white count 9.6, hemoglobin 9.4, sodium 140, potassium 3.7, chloride 102, carbon dioxide 28, BUN 22, creatinine 3.22, calcium 9.1. ASSESSMENT AND PLAN: 1. End-stage renal disease, stable. Continue current 3 times a week hemodialysis. Again, fluid rem oval only as tolerated. 2. Acute respiratory failure, multifactorial etiology. 3. Decreased mentation - Consideration for a possible hypoxic encephalopathy. Continue supportive c are. Overall, prognosis remains guarded with this patient. 4. Anemia, continuing weekly Epogen p.r.n. blood transfusion.
--- NOTE | 2018-01-17 11:43 | PRG ---
DATE OF SERVICE: 01/17/2018 SERVICE: Pulmonary Medicine. INTERVAL HISTORY: The patient is actually doing quite well from a respiratory standpoint. She is to lerating her low support on mechanical ventilation. She cannot provide any additional elements of th e history because she is sedated once again with Versed 5 mg per hour. PHYSICAL EXAMINATION: VITAL SIGNS: Afebrile, pulse 80, blood pressure 137/92, respirations 12, saturation 98% on 21% FiO2 and a PEEP of 5. GENERAL: Patient is intubated and sedated. HEENT: Normocephalic, atraumatic. Sclerae are white. Conjunctivae pink. Oral mucosa is moist with out lesions. LUNGS: Decent air entry. There are some rhonchi and crackles are present. No prolonged expiratory phase or wheezing is appreciated. HEART: Normal rate and regular. ABDOMEN: Soft, nontender, nondistended. Bowel sounds are positive. MUSCULOSKELETAL: No cyanosis or clubbing. No pitting in the bilateral lower extremities. NEUROLOGIC: Grossly nonfocal. LABORATORY DATA: A pH 7.49, pCO2 of 39, pO2 50.6, this corresponds to saturation of 86%. Blood suga r ranges from 125-166. ASSESSMENT: 1. Acute hypoxic respiratory failure, resolved. 2. Acute on chronic diastolic heart failure. 3. End-stage renal disease. PLAN: We will continue to wean away ventilator support. I will discontinue Versed and see if we can start some Precedex. This may help to slow down her heart rate which could potentially help her anne marie stolic dysfunction. Pulmonary or Critical Care will continue to follow along. CRITICAL CARE TIME: 30 minutes.
--- NOTE | 2018-01-17 15:49 | PDOC.PN ---
- Subjective Encounter Start Date: 01/17/18 Encounter Start Time: 10:40 -: non-verbal no interval changes. mother transitioned to comfort care and passed last night. \ doesnt want to make any decisions - Objective MAR Reviewed: Yes Vital Signs & Weight: Vital Signs (12 hours) Temp Pulse Resp BP Pulse Ox 01/17/18 14:31 78 122/81 01/17/18 12:00 97.8 F 16 01/17/18 10:53 89 109/70 01/17/18 10:00 15 01/17/18 08:00 12 01/17/18 07:40 98.8 F 87 12 98 01/17/18 07:00 97.8 F 01/17/18 06:45 87 136/90 01/17/18 06:00 9 L 01/17/18 04:00 97.8 F 9 L Weight Admit Weight 139 lb Weight 99 lb 10.383 oz Most Recent Monitor Data Heart Rate from ECG 77 NIBP 140/88 NIBP BP-Mean 105 Respiration from ECG 13 SpO2 100 I&O: 01/16/18 01/17/18 01/18/18 06:59 06:59 06:59 Intake Total 781 591 151.1 Output Total 40 20 0 Balance 741 571 151.1 Result Diagrams: 01/16/18 03:40 01/16/18 03:40 Additional Labs: Accuchecks 01/17/18 01/17/18 01/16/18 09:53 04:08 21:56 POC Glucose 166 H 141 H 150 H 01/16/18 17:22 POC Glucose 163 H Radiology Reviewed by me: Yes EKG Reviewed by me: Yes Phys Exam - Physical Examination Constitutional: NAD HEENT: PERRLA, moist MMs, sclera anicteric, oral pharynx no lesions orally intubated Neck: no nodes, no JVD, supple, full ROM Respiratory: no wheezing, no rales, no rhonchi, clear to auscultation bilateral Cardiovascular: RRR, no significant murmur, no rub Gastrointestinal: soft, non-tender, no distention, positive bowel sounds Musculoskeletal: no edema, pulses present Lymphatic: no nodes Skin: no rash, normal turgor, cap refill <2 seconds Dx/Plan (1) Acute hypoxemic respiratory failure Code(s): J96.01 - ACUTE RESPIRATORY FAILURE WITH HYPOXIA Status: Acute Comment: reintubated on vent. Pulm following (2) Cardiac arrest Code(s): I46.9 - CARDIAC ARREST, CAUSE UNSPECIFIED Status: Acute Comment: s/ p ACLS and cardioversion, stable currently, no ACS noted currently (3) Encephalopathy acute Code(s): G93.40 - ENCEPHALOPATHY, UNSPECIFIED Status: Acute Comment: Multifactorial, persistent, CT brain negative, appreciate Neurology assistance, suspected hypoxic/anoxic encephalopathy, ? contributor to recurrent resp failure (4) Hypotension, iatrogenic Code(s): I95.89 - OTHER HYPOTENSION Status: Acute Comment: Recurrent episode and associated resp failure requiring intubation, [facility], no pressors currently (5) CAD (coronary artery disease) Code(s): I25.10 - ATHSCL HEART DISEASE OF [place] CORONARY ARTERY W/O ANG PCTRS Status: Chronic Qualifiers: Coronary Disease-Associated Artery/Lesion type: [place] artery [place] vs. transplanted heart: [place] heart Associated angina: angina presence unspecified Qualified Code(s): I25.10 - Atherosclerotic heart disease of [place] coronary artery without angina pectoris (6) ESRD (end stage renal disease) on dialysis Code(s): N18.6 - END STAGE RENAL DISEASE; Z99.2 - DEPENDENCE ON RENAL DIALYSIS Status: Chronic Comment: HD per Renal service (7) Hypotension Status: Resolved Qualifiers: Hypotension type: hemodialysis-associated hypotension Qualified Code(s): I95.3 - Hypotension of hemodialysis (8) 3-vessel CAD Status: Acute Comment: Continue med mgmt, Cardiology assistance appreciated (9) DM type 1 (diabetes mellitus, type 1) Status: Chronic Qualifiers: Diabetes mellitus complication status: with ophthalmic complications Diabetes mellitus complication detail: with diabetic retinopathy Diabetic retinopathy severity: with unspecified retinopathy severity Diabetes mellitus macular edema: macular edema presence unspecified Laterality: bilateral Qualified Code(s): E10.319 - Type 1 diabetes mellitus with unspecified diabetic retinopathy without macular edema (10) Diabetes type 1, uncontrolled Code(s): E10.65 - TYPE 1 DIABETES MELLITUS WITH HYPERGLYCEMIA Status: Chronic Qualifiers: Diabetes mellitus complication status: with hyperglycemia Qualified Code(s) : E10.65 - Type 1 diabetes mellitus with hyperglycemia Comment: Continue Levemir 25u sc qam and decrease 15u sc hs due to am hypoglycemia (11) Glaucoma Code(s): H40.9 - UNSPECIFIED GLAUCOMA Status: Chronic (12) Hypertension Code(s): I10 - ESSENTIAL (PRIMARY) HYPERTENSION Status: Chronic Qualifiers: Hypertension type: essential hypertension Qualified Code(s): I10 - Essential (primary) hypertension (13) Demand ischemia of myocardium Code(s): I24.8 - OTHER FORMS OF ACUTE ISCHEMIC HEART DISEASE Status: Acute - Plan * .
[2018-01-17] MEDS: HumaLOG 300 UNITS/3 ML VIAL SC PRN (16:34)
[2018-01-17] MEDS: Atorvastatin Calcium 40 MG TAB PO SCH (21:09)
[2018-01-18] MEDS: HumaLOG 300 UNITS/3 ML VIAL SC PRN ×2 (06:30→11:44)
[2018-01-18 07:54] LABS: Actual Bicarbonate (HCO3a) 29.1 mEq/L (22-26); Base Excess (BEa) 4.8 mEq/L (0 (+/-) 2.5); CO2 Tension 41.8 mmHg (35.0-45.0); Hematocrit-ABG 28.2 % (36.0-47.0); Hemoglobin (Hb) 8.2 g/dL (12.0-16.0); O2 Tension (PaO2) 64.4 mmHg (80.0-100.0); pH, Arterial 7.46 (7.35-7.45)
[2018-01-18 07:55] LABS: Calcium, Ionized 1.2 mmol/L (1.12-1.30); Puncture Site RB
--- NOTE | 2018-01-18 09:39 | PRG ---
DATE OF SERVICE: 01/18/2018 SUBJECTIVE: Ms. Gimenez is a 37-year-old black female with ESRD and currently on maintenance hemodial ysis. She is still intubated on ventilator support. Family is undecided regarding tracheostomy. Bl ood pressure has been running on the low side and for that reason, will place on hold temporarily on losartan. However, her metoprolol will be left as is. No acute events. PHYSICAL EXAMINATION: VITAL SIGNS: Blood pressure is 102/57, heart rate 78, respiratory rate 79, pulse ox 99%. GENERAL: Unresponsive, intubated on ventilator support. SKIN: Adequate turgor. HEENT: She has slightly pale conjunctivae, anicteric sclerae. NECK: No neck mass, no carotid bruits, no JVD. CHEST: No deformities. LUNGS: Decreased breath sounds. HEART: Normal sinus rhythm. No murmur, no gallops, no rubs. ABDOMEN: Globular, soft, nontender. EXTREMITIES: Positive for a slight edema. MEDICATIONS: 01/18/2018 - Reviewed. LABORATORY: 01/16/2018 - White count 9.6, hemoglobin 9.4. 01/18/2018 - Glucose 201. 01/16/2018 - Sodium 140, potassium 3.7, chloride 102, carbon dioxide 26, BUN 22, creatinine 3.22, alicia cium 9.1. ASSESSMENT AND PLAN: 1. End-stage renal disease, stable. Continue current hemodialysis regimen. 2. Hypertension - blood pressure is noted on the low side. We will hold off losartan temporarily. 3. Anemia, continuing weekly Epogen for this patient. 4. Metabolic encephalopathy relatively unimproved. Unable to be weaned off. Awaiting decision by t he family for tracheostomy. We will check base met and CBC in a.m.
[2018-01-18] MEDS: levETIRAcetam 500 MG TAB PO SCH ×2 (10:25→20:29)
[2018-01-18] MEDS: Dorzolamide HCl 2% Ophth Soln 10 ml Bottle EA EYE SCH ×2 (10:26→20:31)
[2018-01-18] MEDS: Famotidine 20 MG TAB PER TUBE SCH (10:26)
[2018-01-18] MEDS: Aspirin 81 mg Enteric Coated Tablet PO SCH (10:26)
[2018-01-18] MEDS: Ferrous Sulfate 325 MG TAB PO SCH (10:26)
--- NOTE | 2018-01-18 13:38 | PRG ---
DATE OF SERVICE: 01/18/2018 It does not appear that anything has really changed over the weekend. Palliative Care has been vidal martinez to work with family about making some decisions. The decision I think that needs to be made is one for tracheostomy and feeding tube. I doubt she will be able to protect her airway after these multi ple events nor will she be to swallow effectively. PHYSICAL EXAMINATION: VITAL SIGNS: Currently her blood pressure is 99/68, heart rate 84, respiratory rates in the teens. LUNGS: Remarkable for coarse equal breath sounds. CARDIOVASCULAR: Regular rhythm. S1 and S2 are normal. ABDOMEN: Soft. LABORATORY DATA: There is no recent lab. PH 7.46, CO2 41, pO2 64. Sodium 137, potassium 3.2. IMPRESSION: 1. Respiratory failure after a hypotensive event that was felt to be possibly coronary ischemia as a trigger. Cardiology is following. 2. Status post cardiac arrest after dialysis this admission with an anoxic injury. 3. Status post hypoglycemia on presentation. 4. End-stage renal disease. 5. History of coronary artery bypass grafting. We really need for family to make decisions regarding the next step.
--- NOTE | 2018-01-18 16:30 | PDOC.PN ---
- Subjective Encounter Start Date: 01/18/18 Encounter Start Time: 13:30 -: non-verbal no significant cortez,e more arousable when off sedation, barely following commands No F/C,no N/V/D/c, minimal vent setting, 21%. ROS not obtainable - Objective MAR Reviewed: Yes Vital Signs & Weight: Vital Signs (12 hours) Temp Pulse Resp BP Pulse Ox 01/18/18 15:53 73 121/78 01/18/18 14:10 74 136/83 01/18/18 10:44 84 99/68 01/18/18 10:00 7 L 01/18/18 08:00 98.8 F 85 7 L 100 01/18/18 07:34 78 102/57 L 01/18/18 07:00 98.8 F 01/18/18 06:00 7 L 01/18/18 05:00 97.7 F Weight Admit Weight 139 lb Weight 99 lb 8 oz Most Recent Monitor Data Heart Rate from ECG 84 NIBP 131/83 NIBP BP-Mean 100 Respiration from ECG 6 SpO2 96 I&O: 01/17/18 01/18/18 01/19/18 06:59 06:59 06:59 Intake Total 591 1258.0 Output Total 20 0 0 Balance 571 1258.0 0 Result Diagrams: 01/19/18 04:30 01/19/18 04:30 Additional Labs: Accuchecks 01/18/18 01/18/18 01/17/18 11:44 06:30 22:35 POC Glucose 173 H 201 H 128 H 01/17/18 16:26 POC Glucose 153 H Radiology Reviewed by me: Yes EKG Reviewed by me: Yes Phys Exam - Physical Examination Constitutional: NAD HEENT: PERRLA, moist MMs, sclera anicteric, oral pharynx no lesions oral ETT and GT in place, TF going Neck: no nodes, no JVD, supple, full ROM Respiratory: no wheezing, no rales, no rhonchi, clear to auscultation bilateral Cardiovascular: RRR, no significant murmur, no rub Gastrointestinal: soft, non-tender, no distention, positive bowel sounds Musculoskeletal: no edema sedate Lymphatic: no nodes Skin: no rash, normal turgor, cap refill <2 seconds Dx/Plan (1) Acute hypoxemic respiratory failure Code(s): J96.01 - ACUTE RESPIRATORY FAILURE WITH HYPOXIA Status: Acute Comment: reintubated on vent. Pulm following (2) Cardiac arrest Code(s): I46.9 - CARDIAC ARREST, CAUSE UNSPECIFIED Status: Acute Comment: s/ p ACLS and cardioversion, stable currently, no ACS noted currently (3) Encephalopathy acute Code(s): G93.40 - ENCEPHALOPATHY, UNSPECIFIED Status: Acute Comment: Multifactorial, persistent, CT brain negative, appreciate Neurology assistance, suspected hypoxic/anoxic encephalopathy, ? contributor to recurrent resp failure (4) Hypotension, iatrogenic Code(s): I95.89 - OTHER HYPOTENSION Status: Acute Comment: Recurrent episode and associated resp failure requiring intubation, BP improved after mech ventilation, no pressors currently (5) CAD (coronary artery disease) Code(s): I25.10 - ATHSCL HEART DISEASE OF [place] CORONARY ARTERY W/O ANG PCTRS Status: Chronic Qualifiers: Coronary Disease-Associated Artery/Lesion type: [place] artery [place] vs. transplanted heart: [place] heart Associated angina: angina presence unspecified Qualified Code(s): I25.10 - Atherosclerotic heart disease of [place] coronary artery without angina pectoris (6) ESRD (end stage renal disease) on dialysis Code(s): N18.6 - END STAGE RENAL DISEASE; Z99.2 - DEPENDENCE ON RENAL DIALYSIS Status: Chronic Comment: HD per Renal service (7) Hypotension Status: Resolved Qualifiers: Hypotension type: hemodialysis-associated hypotension Qualified Code(s): I95.3 - Hypotension of hemodialysis (8) 3-vessel CAD Status: Acute Comment: Continue med mgmt, Cardiology assistance appreciated (9) DM type 1 (diabetes mellitus, type 1) Status: Chronic Qualifiers: Diabetes mellitus complication status: with ophthalmic complications Diabetes mellitus complication detail: with diabetic retinopathy Diabetic retinopathy severity: with unspecified retinopathy severity Diabetes mellitus macular edema: macular edema presence unspecified Laterality: bilateral Qualified Code(s): E10.319 - Type 1 diabetes mellitus with unspecified diabetic retinopathy without macular edema (10) Diabetes type 1, uncontrolled Code(s): E10.65 - TYPE 1 DIABETES MELLITUS WITH HYPERGLYCEMIA Status: Chronic Qualifiers: Diabetes mellitus complication status: with hyperglycemia Qualified Code(s) : E10.65 - Type 1 diabetes mellitus with hyperglycemia Comment: Continue Levemir 25u sc qam and decrease 15u sc hs due to am hypoglycemia (11) Glaucoma Code(s): H40.9 - UNSPECIFIED GLAUCOMA Status: Chronic (12) Hypertension Code(s): I10 - ESSENTIAL (PRIMARY) HYPERTENSION Status: Chronic Qualifiers: Hypertension type: essential hypertension Qualified Code(s): I10 - Essential (primary) hypertension (13) Demand ischemia of myocardium Code(s): I24.8 - OTHER FORMS OF ACUTE ISCHEMIC HEART DISEASE Status: Acute - Plan cont current plan of care, social media project manager * . waiting for fmzaid to make adecision on her care. meeting with Dr Dunne today. is but legally still MDM.
[2018-01-18] MEDS: Nitroglycerin 2% Ointment 1 INCH/1 GM Packet TOP SCH ×2 (16:59→20:31)
[2018-01-18] MEDS: Metoprolol Tartrate 25 MG TAB PO SCH ×2 (16:59→20:30)
[2018-01-18] MEDS: Atorvastatin Calcium 40 MG TAB PO SCH (20:29)
[2018-01-19 05:09] LABS: #Basophils 0.1 thou/uL (0.0-0.2); #Eosinphils 0.2 thou/uL (0.0-0.7); #Lymphocytes 1.7 thou/uL (1.20-3.40); #Monocytes 0.6 thou/uL (0.11-0.59); #Neutrophils 6.4 thou/uL (1.40-6.50); %Basophils 0.8 % (0.0-1.0); %Eosinophils 2.3 % (0.0-10.0); %Lymphocytes 19.5 % (21.0-51.0); %Monocytes 6.4 % (0.0-10.0); %Neutrophils 71.1 % (42.0-75.0); Hemoglobin 9.6 g/dL (12.0-16.0); Mean Corpuscular HGB CONC 32.1 g/dL (32.0-36.0); Mean Corpuscular Hemoglobin 29.3 pg (27.0-31.0); Mean Corpuscular Volume 91.3 fl (81.0-99.0); Mean Platelet Volume 8.1 fL (7.4-10.4); Platelet Count 349 thou/uL (130-400); RBC Distribution Width 16.7 % (11.5-14.5); Red Blood Cell (RBC) Count 3.27 mill/uL (4.20-5.40); White Blood Cell (WBC) Count 8.9 thou/uL (4.8-10.8)
[2018-01-19] MEDS: HumaLOG 300 UNITS/3 ML VIAL SC PRN (05:26)
[2018-01-19 05:27] LABS: Anion Gap 13 mmol/L (10-20); BUN (Urea Nitrogen) 39 mg/dL (7.0-18.7); Calc. Creatinine Clearance 14 mL/min (70-130); Calcium 8.8 mg/dL (7.8-10.44); Carbon Dioxide 27 mmol/L (22-29); Chloride 99 mmol/L (98-107); Estimated GFR-MDRD 15; Glucose 265 mg/dL (70-105); Sodium 135 mmol/L (136-145)
[2018-01-19 07:32] LABS: HBSAg Index 0.18 S/CO (0-0.99); Hep B Surf Ag Non-Reactive S/CO (NonReactive)
[2018-01-19 08:13] LABS: Actual Bicarbonate (HCO3a) 27.2 mEq/L (22-26); Base Excess (BEa) 2.6 mEq/L (0 (+/-) 2.5); CO2 Tension 42.2 mmHg (35.0-45.0); Calcium, Ionized 1.2 mmol/L (1.12-1.30); Hematocrit-ABG 28.9 % (36.0-47.0); Hemoglobin (Hb) 7.7 g/dL (12.0-16.0); Puncture Site RR; pH, Arterial 7.43 (7.35-7.45)
[2018-01-19] MEDS ORDERED: Heparin 10,000 UNITS/ 10 ML VIAL ONE (10:00)
--- NOTE | 2018-01-19 10:31 | PRG ---
DATE OF SERVICE: 01/19/2018 SUBJECTIVE: Ms. Gimenez is being dialyzed this morning. I had a meeting with the with the jessica easley there last night. There is another family member, I believe an aunt that was there. The does not want a trach and does not want a feeding tube. He wants care withdrawn today. He wants her to be a [id number] itate patient. We explained to him that she may quickly or she may not for quite some time and there is no w ay to predict. OBJECTIVE: GENERAL: She is currently being dialyzed. She is sedated. Her sedation needs to be held. LUNGS: Clear. HEART: Regular rhythm. ABDOMEN: Soft. LABORATORY DATA: White count 8.9, hemoglobin 9.6, platelets 349. Sodium 135, potassium 4, chloride 99, bicarbonate 27, BUN 39, creatinine 4.1. IMPRESSION: 1. Anoxic brain injury. 2. Coronary artery disease, status post coronary bypass grafting. 3. Recurrent hypotension. 4. Anoxic brain injury after cardiac arrest. 5. End-stage renal disease. 6. Diabetes. An uncle was very confrontational when I walked into the room, wanting to know why I had not pulled t he breathing tube out. When I explained to him that I would not do that until the arrived an d was ready. He then asked me why I kept changing the time. There was never any time placed on extu bation in the meeting yesterday. I have explained to the uncle if he continues to be confrontational , he is going to leave. He did continue to be confrontational and told me I need to just do my job. I called security and have left a message for security to escort him out of the building. I felt hi s behavior is very threatening. Unfortunately, she is near the end at a very young age.
[2018-01-19] MEDS ORDERED: Lorazepam 2 MG/ML VIAL ONE (11:25)
[2018-01-19] MEDS ORDERED: Lorazepam 2 MG/ML VIAL SLOW IVP PRN (11:32)
--- NOTE | 2018-01-19 12:17 | PRG ---
DATE OF SERVICE: 01/19/2018 RENAL MEDICINE SUBJECTIVE: Ms. Gimenez is a 37-year-old black female with ESRD and currently on maintenance hemodial ysis. At the bedside, supervising her dialysis. I noted her to be on the hypotensive side today. T he plan is to do a 3-hour treatment with her with minimal fluid removal. I had given a bolus of 250 mL prior to the said dialysis to keep the blood pressure up. No new acute events. OBJECTIVE: VITAL SIGNS: Blood pressure is ranging from 90/70-111/71, heart rate 92, respiratory rate is 13, pul se ox 100%. GENERAL: Patient is sedated, intubated on ventilator support, not in distress. SKIN: Adequate turgor. HEENT: She has slightly pale conjunctivae, anicteric sclerae. NECK: No neck mass, no carotid bruits, no JVD. CHEST: No deformities. LUNGS: Decreased breath sounds. HEART: Normal sinus rhythm. No murmur, no gallops, no rubs. ABDOMEN: Globular, soft, nontender, no masses. EXTREMITIES: No edema, no deformities. LABORATORY DATA: Of 01/19/2018, white count 8.9, hemoglobin 9.6. Sodium 135, potassium 4, chloride 99, carbon dioxide 27, BUN 39, creatinine 4.1, glucose 265, calcium 8.8. ASSESSMENT AND PLAN: 1. End-stage renal disease, stable. Continue 3 times a week hemodialysis. We will do a 3-hour hemo dialysis today. Due to the low blood pressure, minimal fluid removal. 2. Anemia, continuing weekly Epogen, stable - p.r.n. blood transfusion. 3. Decreased mentation - ? metabolic encephalopathy. 4. Acute respiratory failure, currently unable to be weaned off at the present time. Fluid removal will be attempted only if the patient tolerates dialysis. Overall, prognosis remains guarded.
[2018-01-19] MEDS: Famotidine 20 MG TAB PER TUBE SCH (12:42)
[2018-01-19] MEDS: Dorzolamide HCl 2% Ophth Soln 10 ml Bottle EA EYE SCH ×2 (12:42→21:45)
[2018-01-19] MEDS: Aspirin 81 mg Enteric Coated Tablet PO SCH (12:42)
[2018-01-19] MEDS: Ferrous Sulfate 325 MG TAB PO SCH (12:43)
[2018-01-19] MEDS: Metoprolol Tartrate 25 MG TAB PO SCH (12:43)
[2018-01-19] MEDS: Nitroglycerin 2% Ointment 1 INCH/1 GM Packet TOP SCH (12:43)
[2018-01-19] MEDS: levETIRAcetam 500 MG TAB PO SCH (12:43)
[2018-01-19] MEDS: Losartan 25 MG TAB PO SCH (18:24)
[2018-01-19 21:27] VITALS: BP 61/38; TEMP 97.4
[2018-01-20] MEDS: Atorvastatin Calcium 40 MG TAB PO SCH (00:20)
[2018-01-20] MEDS: Metoprolol Tartrate 25 MG TAB PO SCH (00:21)
[2018-01-20] MEDS: levETIRAcetam 500 MG TAB PO SCH (00:21)
[2018-01-20] MEDS: Nitroglycerin 2% Ointment 1 INCH/1 GM Packet TOP SCH (00:21)
--- NOTE | 2018-01-20 08:47 | PDOC.PN ---
- Subjective Encounter Start Date: 01/19/18 Encounter Start Time: 09:10 -: non-verbal pt on precedex, less sedated. following simple commands, trying to open eyes to request. nods/shakes appropriately. Pt able to confirm she wants her to make decision, she also confirmed she did not want to keep going. Current plan to terminally extubate to comfort care today No F/C,no N/V/D/C. ROS not obtainable - Objective Resuscitation Status: Resuscitation Status DNR:Do Not Resuscitate MAR Reviewed: Yes Vital Signs & Weight: Weight Admit Weight 139 lb Weight 99 lb 6.856 oz Most Recent Monitor Data Heart Rate from ECG 85 NIBP 93/62 NIBP BP-Mean 77 Respiration from ECG 12 SpO2 84 I&O: 01/19/18 01/20/18 01/21/18 06:59 06:59 06:59 Intake Total 964.8 74 Output Total 0 0 Balance 964.8 74 Result Diagrams: 01/19/18 04:30 01/19/18 04:30 Phys Exam - Physical Examination HEENT: PERRLA, moist MMs, sclera anicteric, oral pharynx no lesions Neck: no nodes, no JVD, supple, full ROM Respiratory: no wheezing, no rales, no rhonchi, clear to auscultation bilateral Cardiovascular: RRR, no significant murmur, no rub Gastrointestinal: soft, non-tender, no distention, positive bowel sounds Musculoskeletal: no edema, pulses present Neurological: non-focal, normal sensation, moves all 4 limbs Lymphatic: no nodes Psychiatric: normal affect Skin: no rash, normal turgor, cap refill <2 seconds Dx/Plan (1) Acute hypoxemic respiratory failure Code(s): J96.01 - ACUTE RESPIRATORY FAILURE WITH HYPOXIA Status: Acute Comment: reintubated on vent. Pulm following (2) Cardiac arrest Code(s): I46.9 - CARDIAC ARREST, CAUSE UNSPECIFIED Status: Acute Comment: s/ p ACLS and cardioversion, stable currently, no ACS noted currently (3) Encephalopathy acute Code(s): G93.40 - ENCEPHALOPATHY, UNSPECIFIED Status: Acute Comment: Multifactorial, persistent, CT brain negative, appreciate Neurology assistance, suspected hypoxic/anoxic encephalopathy, ? contributor to recurrent resp failure (4) Hypotension, iatrogenic Code(s): I95.89 - OTHER HYPOTENSION Status: Acute Comment: Recurrent episode and associated resp failure requiring intubation, BP improved after mech ventilation, no pressors currently (5) CAD (coronary artery disease) Code(s): I25.10 - ATHSCL HEART DISEASE OF [place] CORONARY ARTERY W/O ANG PCTRS Status: Chronic Qualifiers: Coronary Disease-Associated Artery/Lesion type: [place] artery [place] vs. transplanted heart: [place] heart Associated angina: angina presence unspecified Qualified Code(s): I25.10 - Atherosclerotic heart disease of [place] coronary artery without angina pectoris (6) ESRD (end stage renal disease) on dialysis Code(s): N18.6 - END STAGE RENAL DISEASE; Z99.2 - DEPENDENCE ON RENAL DIALYSIS Status: Chronic Comment: HD per Renal service (7) Hypotension Status: Resolved Qualifiers: Hypotension type: hemodialysis-associated hypotension Qualified Code(s): I95.3 - Hypotension of hemodialysis (8) 3-vessel CAD Status: Acute Comment: Continue med mgmt, Cardiology assistance appreciated (9) DM type 1 (diabetes mellitus, type 1) Status: Chronic Qualifiers: Diabetes mellitus complication status: with ophthalmic complications Diabetes mellitus complication detail: with diabetic retinopathy Diabetic retinopathy severity: with unspecified retinopathy severity Diabetes mellitus macular edema: macular edema presence unspecified Laterality: bilateral Qualified Code(s): E10.319 - Type 1 diabetes mellitus with unspecified diabetic retinopathy without macular edema (10) Diabetes type 1, uncontrolled Code(s): E10.65 - TYPE 1 DIABETES MELLITUS WITH HYPERGLYCEMIA Status: Chronic Qualifiers: Diabetes mellitus complication status: with hyperglycemia Qualified Code(s) : E10.65 - Type 1 diabetes mellitus with hyperglycemia Comment: Continue Levemir 25u sc qam and decrease 15u sc hs due to am hypoglycemia (11) Glaucoma Code(s): H40.9 - UNSPECIFIED GLAUCOMA Status: Chronic (12) Hypertension Code(s): I10 - ESSENTIAL (PRIMARY) HYPERTENSION Status: Chronic Qualifiers: Hypertension type: essential hypertension Qualified Code(s): I10 - Essential (primary) hypertension (13) Demand ischemia of myocardium Code(s): I24.8 - OTHER FORMS OF ACUTE ISCHEMIC HEART DISEASE Status: Acute - Plan * .
--- NOTE | 2018-01-23 17:34 | EKG ---
Test Reason : EMERGENCY EXAM Blood Pressure : / mmHG Vent. Rate : 076 BPM Atrial Rate : 076 BPM P-R Int : 142 ms QRS Dur : 076 ms QT Int : 432 ms P-R-T Axes : 067 027 167 degrees QTc Int : 486 ms Normal sinus rhythm Low voltage QRS Cannot rule out Anterior infarct , age undetermined Abnormal ECG Confirmed by MALU OLIVO, SEMAJ ([id number]), editorial assistant JERALD GARCIA ([id number] on 01/23/2018 5:33:26 PM Referred By: Confirmed By:SEMAJ TORIBIO MD
== END 2018-01-20 06:05 | disposition expired | DRG 981 ==
LOC: ERS 13:01 → 2SW 14:44 → IMCU/EMU 01-01 16:54 → CCU 01-01 16:57 → OBSVTOIN 01-01 17:10 → IMCU/EMU 01-01 17:39 → CCU 01-01 17:48 → T4-A 01-02 18:40 → CCU 01-03 20:04 → T4-B 01-19 17:43
PROVIDERS: ADMIT Family Medicine; ATTEND Family Medicine
PROC: 5A1955Z Respiratory Ventilation, Greater than 96 Consecutive Hours (ICD-10-PCS; 2018-01-03)
PROC: 5A12012 Performance of Cardiac Output, Single, Manual (ICD-10-PCS; 2018-01-03)
PROC: 0BH17EZ Insertion of Endotracheal Airway into Trachea, Via Natural or Artificial Opening (ICD-10-PCS; 2018-01-03)
PROC: 0B9J8ZZ Drainage of Left Lower Lung Lobe, Via Natural or Artificial Opening Endoscopic (ICD-10-PCS; principal; 2018-01-11)
PROC: 0B9C8ZZ Drainage of Right Upper Lung Lobe, Via Natural or Artificial Opening Endoscopic (ICD-10-PCS; 2018-01-11)
PROC: 0B9G8ZZ Drainage of Left Upper Lung Lobe, Via Natural or Artificial Opening Endoscopic (ICD-10-PCS; 2018-01-11)
PROC: 0B9D8ZZ Drainage of Right Middle Lung Lobe, Via Natural or Artificial Opening Endoscopic (ICD-10-PCS; 2018-01-11)
PROC: 0B9F8ZZ Drainage of Right Lower Lung Lobe, Via Natural or Artificial Opening Endoscopic (ICD-10-PCS; 2018-01-11)
PROC: 0BH18EZ Insertion of Endotracheal Airway into Trachea, Via Natural or Artificial Opening Endoscopic (ICD-10-PCS; 2018-01-11)
PROC: 5A1955Z Respiratory Ventilation, Greater than 96 Consecutive Hours (ICD-10-PCS; 2018-01-11)
PROC: 5A12012 Performance of Cardiac Output, Single, Manual (ICD-10-PCS; 2018-01-11)
DX: E10.649 Type 1 diabetes mellitus with hypoglycemia without coma (principal); J96.01 Acute respiratory failure with hypoxia; G93.41 Metabolic encephalopathy; G93.1 Anoxic brain damage, not elsewhere classified; I13.2 Hypertensive heart and chronic kidney disease with heart failure and with stage 5 chronic kidney disease, or end stage renal disease; E87.3 Alkalosis; I24.8 Other forms of acute ischemic heart disease; I95.3 Hypotension of hemodialysis; I95.9 Hypotension, unspecified; E88.09 Other disorders of plasma-protein metabolism, not elsewhere classified; E10.22 Type 1 diabetes mellitus with diabetic chronic kidney disease; I50.33 Acute on chronic diastolic (congestive) heart failure; N18.6 End stage renal disease; I48.0 Paroxysmal atrial fibrillation; Z51.5 Encounter for palliative care; D63.1 Anemia in chronic kidney disease; I25.10 Atherosclerotic heart disease of native coronary artery without angina pectoris; Z95.1 Presence of aortocoronary bypass graft; K21.9 Gastro-esophageal reflux disease without esophagitis; Z99.2 Dependence on renal dialysis; Z79.4 Long term (current) use of insulin; H40.9 Unspecified glaucoma; H54.8 Legal blindness, as defined in USA; Z79.82 Long term (current) use of aspirin; G40.909 Epilepsy, unspecified, not intractable, without status epilepticus; I46.9 Cardiac arrest, cause unspecified; E78.00 Pure hypercholesterolemia, unspecified; Z66 Do not resuscitate; E10.319 Type 1 diabetes mellitus with unspecified diabetic retinopathy without macular edema
CPT/HCPCS: 36415; 36416; 70450; 71045; 71275; 80048; 80053; 82140; 82533; 82553; 82607; 82805; 84425; 84436; 84484; 85007; 85025; 85027; 87340; 90935; 93005; 93010; 93306; 94002; 94003; 94760; 95816; 95819; 96374; A4216; G0257; G8978-GP-CN; G8979-GP-CK; G8996-GN-CN; G8997-GN-CL; J0171; J0360; J1642; J1644; J1940; J2060; J2270; J2405; J2920; J2997; J7050; Q4081